=== PATIENT | female | born 1980 | race Caucasian/White ===

== ENCOUNTER 2023-09-20 15:00 | Outpatient (OUT) | payer OTHER, SELFPAY ==
[2023-09-20 15:58] LABS: Anion Gap 10.3; BUN Creatinine Ratio 16.9; Calcium 9.4 mg/dL (8.5-10.1); Carbon Dioxide 30.4 mmol/L (21.0-32.0); Chloride 102 mmol/L (98-107); Estimated GFR (African America >60 (>=60); Estimated GFR (Non-African Ame >60 (>=60); Glucose 111 mg/dL (74-106); Potassium 3.7 mmol/L (3.5-5.1); Sodium 139 mmol/L (136-145)
== END 2023-09-20 15:01 | disposition home or self-care (01) ==
LOC: LAB 15:07
PROVIDERS: Visit Provider Internal Medicine Cardiovascular Disease
DX: R06.02 Shortness of breath (principal); R60.0 Localized edema
CPT/HCPCS: 36415; 80048

== ENCOUNTER 2023-11-10 07:53 | Outpatient (OUT) | payer OTHER, SELFPAY ==
--- OUTSIDE RECORDS SUMMARY | 2023-11-10 07:57 | XMS_ITS | CCD ---
Author Organization [facility] Care Team Providers Care Glue Mounter Operator Name Role Phone CONI SERRANO Unavailable Unava ilable CALLIF-FONTANA, CARLITOS Unavailable Unavailable NO FAMILY DOCTOR Unavailable Unavailable RODDY POWELL Attending Unavailable RODDY POWELL Admitting Unavailable SELF, REFERRED Referring Unavailable SELF, REFERRED Primary Care Unavailable AICHHOLZ, OBSERVATION NURSE EMMIE Admitting Unavailable AICHHOLZ, OBSERVATION NURSE EMMIE Attending Unavailable AICHHOLZ, OBSERVATION NURSE EMMIE Primary Care Unavailable AICHHOLZ, OBSERVATION NURSE EMMIE Consulting Unavailable AICHHOLZ, OBSERVATION NURSE EMMIE Admitting Unavailable AICHHOLZ, OBSERVATION NURSE EMMIE Attending Unavailable AICHHOLZ, OBSERVATION NURSE EMMIE Primary Care Unavailable AICHHOLZ, OBSERVATION NURSE EMMIE Consulting Unavailable AICHHOLZ, OBSERVATION NURSE EMMIE Admitting Unavailable AICHHOLZ, OBSERVATION NURSE EMMIE Attending Unavailable AICHHOLZ, OBSERVATION NURSE EMMIE Primary Care Unavailable AICHHOLZ, OBSERVATION NURSE EMMIE Consulting Unavailable AICHHOLZ, OBSERVATION NURSE EMMIE Primary Care Unavailable KENDALL MOMIN Admitting Unavailable KENDALL MOMIN Attending Unavailable DR VLADISLAV ÁLVAREZ Consulting Unavailable KVNG ESPOSITO Attending Unavailable [facility] Primary Care Unavailable KVNG ESPOSITO Attending Unavailable [facility] Primary Care Unavailable Misbah Murray Attending Unavailable Misbah Murray Admitting Unavailable Provider, None Primary Care Unavailable Daria Elias K Attending Unavailable Daria Elias K Admitting Unavailable Provider, Unlisted Primary Care Unavailable Provider, None Primary Care Unavailable Jaime Saldaña Attending Unavailab Jaime Lea Admitting Unavailab le NO PCP, NO PCP Primary Care Unavailable SUSANNE STAPLETON Attending Unavailable [facility] Primary Care Unavailable [facility] Primary Care Unavailable BETI ECHAVARRIA Attending Unavailable Allergies Allergy Classification Reported Allergen(s) Allergy Type Date of Onset Reaction(s) Facility (2 sources) Aspartame; Translations: [Aspartame] Drug Allergy 10-03-19 14 [facility] Repository (3 sources) Aspirin; Translations: [aspirin] Drug Allergy 01-18-20 12 [facility] Repository (1 source) Azithromycin Drug Allergy 10-03-19 14 [facility] Repository (2 sources) cyclobenzaprine; Translations: [CYCLOBENZAPRINE] Drug Allergy 10-03-19 14 [facility] Repository (1 source) oxaprozin Drug Allergy 10-03-19 14 [facility] Repository (4 sources) Penicillins; Translations: [PENICILLINS] Drug allergy (disorder) 10-03-19 14 [facility] Repository (1 source) Saccharin Drug Allergy 10-03-19 14 [facility] Repository (2 sources) Sertraline Drug Allergy 10-03-19 14 [facility] Repository (1 source) Sulfamethoxazole / Trimethoprim Drug Allergy 10-03-19 14 [facility] Repository (2 sources) Sulfonamides (Antibiotic) Drug allergy (disorder) 10-03-19 14 [facility] Repository (1 source) Aspartame Drug Allergy 08-15-19 15 [facility] Repository (1 source) Aspirin Drug Allergy 08-15-19 15 [facility] Repository (1 source) Corticosteroids Drug allergy (disorder) 08-19-19 15 [facility] Repository (2 sources) gabapentin; Translations: [GABAPENTIN] Drug Allergy 10-31-19 15 [facility] Repository (1 source) Latex Drug allergy (disorder) 08-15-19 15 [facility] Repository (1 source) Saccharin Drug Allergy 08-12-19 15 [facility] Repository (1 source) traMADol; Translations: [traMADol] Drug Allergy [facility] Repository (2 sources) FLUoxetine; Translations: [FLUOXETINE] Drug Allergy 01-18-20 12 [facility] Repository (1 source) fluticasone; Translations: [FLUTICASONE] Drug Allergy 09-23-19 17 [facility] Repository (1 source) predniSONE; Translations: [PREDNISONE] Drug Allergy 11-17-19 17 [facility] Repository (2 sources) Sertraline; Translations: [SERTRALINE] Drug Allergy 01-18-20 12 [facility] Repository (1 source) Sulfamethoxazole / Trimethoprim; Translations: [SULFAMETHOXAZOLE-TR IMETHOPRIM] Drug Allergy 09-23-19 17 [facility] Repository (1 source) tiZANidine; Translations: [TIZANIDINE] Drug Allergy 10-20-19 19 [facility] Repository (1 source) ASPIRIN-SALICYLAMIDE -CAFFEINE; Translations: [ASPIRIN-SALICYLAMID E-CAFFEINE] Propensity to adverse reactions to drug (disorder) 09-23-19 17 [facility] Repository (1 source) ANTIBIOTIC HC; Translations: [ANTIBIOTIC HC] Propensity to adverse reactions to drug (disorder) 11-17-19 [facility] Repository (1 source) Sulfamethoxazole; Translations: [SULFAMETHOXAZOLE] Drug Allergy 01-18-20 12 [facility] Repository Problems Active Problems Problem Classification Problem Date Documented Da te Episodic/Chronic Diabetes mellitus without complication (1 source) Prediabetes; Translations: [PREDIABETES] Onset: 02-25-2022 Episodic Disorders of teeth and jaw (5 sources) Other specified disorders of teeth and supporting structures; Translations: [Periapical abscess without sinus] Onset: 05-23-2022 Episodic Inflammation; infection of eye (except that caused by tuberculosis or sexually transmitteddisease) (1 source) Hordeolum externum left eye, unspecified eyelid; Translations: [Hordeolum externum left eye, unspecified eyelid] Onset: 06-16-2023 Episodic Mood disorders (1 source) Bipolar disorder, unspecified; Translations: [BIPOLAR DISORDER UNSPECIFIED] Onset: 05-24-2022 Chronic Nonspecific chest pain (2 sources) Chest pain, unspecified; Translations: [Chest pain, unspecified] Onset: 09-20-2023 Episodic Other aftercare (5 sources) Other exterminator termite (current) drug therapy; Translations: [OTH SENIOR LIVING CURRENT DRUG THERAPY] Onset: 02-22-2022 Episodic Other aftercare (1 source) Encounter for other specified aftercare; Translations: [Encounter for other specified aftercare] Onset: 06-13-2023 Episodic Other connective tissue disease (1 source) Fibromyalgia; Translations: [Fibromyalgia] Onset: 09-01-2023 Episodic Other eye disorders (1 source) Other specified disorders of eye and adnexa; Translations: [Other specified disorders of eye and adnexa] Onset: 06-13-2023 Episodic Other lower respiratory disease (2 sources) Shortness of breath; Translations: [Shortness of breath] Onset: 09-20-2023 Episodic Other nervous system disorders (2 sources) Other chronic pain; Translations: [OTHER CHRONIC PAIN] Onset: 05-24-2022 Chronic Other nutritional; endocrine; and metabolic disorders (1 source) Morbid (severe) obesity due to excess calories; Translations: [MORBID SEVERE OBES D/T EXCESS BONITA] Onset: 05-24-2022 Chronic Other nutritional; endocrine; and metabolic disorders (1 source) Body mass index (BMI) 39.0-39.9, adult; Translations: [BODY MASS INDEX BMI 39.0-39.9 ADULT] Onset: 05-24-2022 Chronic Other upper respiratory infections (1 source) Acute upper respiratory infection, unspecified; Translations: [Acute upper respiratory infection, unspecified] Onset: 01-24-2023 Episodic Residual codes; unclassified (1 source) Edema, unspecified; Translations: [Edema, unspecified] Onset: 01-24-2023 Episodic Residual codes; unclassified (1 source) Pain, unspecified; Translations: [Pain, unspecified] Onset: 06-13-2023 Episodic Residual codes; unclassified (2 sources) Localized edema; Translations: [Localized edema] Onset: 09-20-2023 Episodic Spondylosis; intervertebral disc disorders; other back problems (2 sources) Lumbago with sciatica, left side; Translations: [Lumbago with sciatica, right side] Onset: 12-03-2022 Episodic Substance-related disorders (1 source) Nicotine dependence, cigarettes, uncomplicated; Translations: [NICOTINE DEPEND CIGARETTES UNCOMP] Onset: 05-24-2022 Chronic Unclassified (1 source) LOW BACK PAIN, UNSPECIFIED; Translations: [LOW BACK PAIN, UNSPECIFIED] Onset: 05-24-2022 Unclassified (1 source) Cold Like Symptoms Onset: 06-13-2023 Unclassified (1 source) Generalized Body Aches Onset: 06-13-2023 Unclassified (1 source) Body Aches; Vomiting Onset: 06-13-2023 Past or Other Problems Problem Classification Problem Date Documented Da te Episodic/Chronic Cancer of other female genital organs (2 sources) Personal history of malignant neoplasm of unspecified female genital organ; Translations: [Personal history of malignant neoplasm of unspecified female genital organ] Onset: 07-27-2017 Episodic Skin and subcutaneous tissue infections (8 sources) Cutaneous abscess of groin; Translations: [Cutaneous abscess, unspecified] Onset: 08-18-2021 Episodic Unclassified (4 sources) Family history of malignant neoplasm of breast; Translations: [Family history of malignant neoplasm of digestive organs] Onset: 07-27-2017 Episodic Results Test Name Value Interpretation Reference Range Facility Office Visiton 09-20-2023 Follow-up visit [id number] DanielTracey Bruner 1980 F Date Provider Department Center 09/20/2023 [id number] ECHAVARRIA [facility] No family history on file Level of Service:14613 HI OFFICE/OUTPATIENT NEW MODERATE MDM 45 MINUTES Normal [facility] C-Reactive Proteinon 024 CRP [Mass/Vol] 20.9 mg/L High 0.0-5.0 [facility] Comment on above: Performed By: #### C GORDO DOBBS, CP #### [facility] [address] [place] [address] Dr. [place] [id number] Engineer Byproduct: Henrique Schumacher MD CBC with Diffon 09-01-2023 Abs. Basophil 0.06 k/uL Normal 0.00-0.20 [facility] Comment on above: Performed By: #### C GORDO DOBBS CP #### [facility] [address] [place] [address] Dr. Zheng, [facility]83 Engineer Byproduct: Henrique Schumacher MD Abs.Imm.Granulocyte 0.03 k/uL Normal 0.00-0.30 [facility] Comment on above: Performed By: #### GORDO Espinoza RP, CP #### [address] [place] [phone] Engineer Byproduct: Henrique Schumacher MD Abs.Neutrophil (Seg) 6.65 k/uL Normal 1.50-8.10 [facility] Comment on above: Performed By: #### C GORDO DOBBS, CP #### [address] Zheng, [place] [address] Engineer Byproduct: Henrique Schumacher MD Basophils/100 WBC (Bld) 1 % Normal 0-2 [facility] Comment on above: Performed By: #### C RP, CDP, CP #### [address] Zheng, [facility]83 Engineer Byproduct: Henrique Schumacher MD Eosinophils (Bld) [#/Vol] 0.16 10*3/uL Normal 0.00-0.44 [facility] Comment on above: Performed By: #### C RP, CDP, CP #### [address] Zheng, [facility]83 Engineer Byproduct: Henrique Schumacher MD Eosinophils/100 WBC (Bld) 2 % Normal 1-4 [facility] Comment on above: Performed By: #### C RP, CDP, CP #### [address] Zheng, [facility]83 Engineer Byproduct: Henrique Schumacher MD Erythrocyte distribution width (RBC) [Ratio] 14.1 % Normal 11.8-14.4 [facility] Comment on above: Performed By: #### C RP, CDP, CP #### [address] Zheng, [facility]83 Engineer Byproduct: Henrique Schumacher MD Hematocrit (Bld) [Volume fraction] 45.3 % Normal 36.3-47.1 [facility] Comment on above: Performed By: #### C RP, CDP, CP #### [address] Zheng, [facility]83 Engineer Byproduct: Henrique Schumacher MD Hemoglobin (Bld) [Mass/Vol] 14.8 g/dL Normal 11.9-15.1 [facility] Comment on above: Performed By: #### C RP, CDP, CP #### [address] [place]heng, [place] [id number] Engineer Byproduct: Henrique Schumacher MD Immature granulocytes/100 WBC (Bld) 0 % Normal 0 [facility] Comment on above: Performed By: #### C RP, CDP, CP #### [address] Zheng, [facility]83 Engineer Byproduct: Henrique Schumacher MD Lymphocytes (Bld) [#/Vol] 1.98 10*3/uL Normal 1.10-3.70 [facility] Comment on above: Performed By: #### C RP, CDP, CP #### [address] Zheng, [place] [address] Engineer Byproduct: Henrique Schumacher MD Lymphocytes/100 WBC (Bld) 21 % Low 24-43 [facility] Comment on above: Performed By: #### C RP, CDP, CP #### [address] Zheng, [facility]83 Engineer Byproduct: Henrique Schumacher MD MCH (RBC) [Entitic mass] 30.6 pg Normal 25.2-33.5 [facility] Comment on above: Performed By: #### C RP CDP, CP #### [address] Zheng, [facility]83 Engineer Byproduct: Henrique Schumacher MD MCHC (RBC) [Mass/Vol] 32.7 g/dL Normal 28.4-34.8 [facility] Comment on above: Performed By: #### C RP, CDP, CP #### [address] [place], [place] [phone] Engineer Byproduct: Henrique Schumacher MD MCV (RBC) [Entitic vol] 93.8 fL Normal 82.6-102.9 [facility] Comment on above: Performed By: #### C RP, CDP, CP #### [address] [place], [place] [id number] Engineer Byproduct: Henrique Schumacher MD Monocytes (Bld) [#/Vol] 0.61 10*3/uL Normal 0.10-1.20 [facility] Comment on above: Performed By: #### C RP CDP, CP #### [facility] [address] [place] [address] Engineer Byproduct: Henrique Schumacher MD Monocytes/100 WBC (Bld) 6 % Normal 3-12 [facility] Comment on above: Performed By: #### C RP CDP, CP #### [facility] [address] [place] [address] Engineer Byproduct: Henrique Schumacher MD Neutrophil (Seg) 70 % High 36-65 [facility] Comment on above: Performed By: #### C RPGORDO, CP #### [facility] [address] [place] [address] Dr. Zheng, [facility]83 Engineer Byproduct: Henrique Schumacher MD NRBC Automated 0.0 per 100 WBC Normal 0.0 [facility] Comment on above: Performed By: #### C GORDO DOBBS, CP #### [address] [place] [address] Engineer Byproduct: Henrique Schumacher MD Platelet mean volume (Bld) [Entitic vol] 10.6 fL Normal 8.1-13.5 [facility] Comment on above: Performed By: #### C RPGORDO, CP #### [facility] [address] [place] [address] [place] [address] Engineer Byproduct: Henrique Schumacher MD Platelets (Bld) [#/Vol] 237 10*3/uL Normal 138-453 [facility] Comment on above: Performed By: #### C RP CDP, CP #### [address] [place] [address] Engineer Byproduct: Henrique Schumacher MD RBC (Bld) [#/Vol] 4.83 10*6/uL Normal 3.95-5.11 [facility] Comment on above: Performed By: #### C GORDO DOBBS, CP #### [facility] [address] [place], [place] [id number] Engineer Byproduct: Henrique Schumacher MD WBC (Bld) [#/Vol] 9.5 10*3/uL Normal 3.5-11.3 [facility] Comment on above: Performed By: #### C RP CDP, CP #### [facility] [address] [place], [place] [id number] Engineer Byproduct: Henrique Schumacher MD Comp Metabolic Profon 2023 Albumin [Mass/Vol] 3.8 g/dL Normal 3.5-5.2 [facility] Comment on above: Performed By: #### C GORDO DOBBS, CP #### [facility] [address] [place], [place] [id number] Engineer Byproduct: Henrique Schumacher MD Albumin/Glob Ratio 0.9 Low 1.0-2.5 [facility] Comment on above: Performed By: #### C GORDO DOBBS, CP #### [address] [place], [place] [id number] Engineer Byproduct: Henrique Schumacher MD Alkaline Phos 100 U/L Normal 35-104 [facility] Comment on above: Performed By: #### C GORDO DOBBS, CP #### [facility] [address] [place], [place] [phone] Engineer Byproduct: Henrique Schumacher MD ALT [Catalytic activity/Vol] 34 U/L High 5-33 [facility] Comment on above: Performed By: #### C GORDO DOBBS, CP #### [facility] [address] [place] [address] Engineer Byproduct: Henrique Schumacher MD Anion gap [Moles/Vol] 12 mmol/L Normal 9-17 [facility] Comment on above: Performed By: #### C RP, CDP, CP #### [facility] [address] [place], [place] [phone] Engineer Byproduct: Henrique Schumacher MD AST [Catalytic activity/Vol] 29 U/L Normal <32 [facility] Comment on above: Performed By: #### C RP, CDP, CP #### [facility] [address] [place] [address] Engineer Byproduct: Henrique Schumacher MD Bilirubin [Mass/Vol] 0.2 mg/dL Low 0.3-1.2 [facility] Comment on above: Performed By: #### C RP, CDP, CP #### [facility] [address] [place], [place] [phone] Engineer Byproduct: Henrique Schumacher MD BUN/CRE Ratio 18 Normal 9-20 [facility] Comment on above: Performed By: #### C RP, CDP, CP #### [facility] [address] [place] [address] Engineer Byproduct: Henrique Schumacher MD Calcium [Mass/Vol] 9.4 mg/dL Normal 8.6-10.4 [facility] Comment on above: Performed By: #### C RP, CDP, CP #### [address] [place] [address] Engineer Byproduct: Henrique Schumacher MD Chloride [Moles/Vol] 103 mmol/L Normal 98-107 [facility] Comment on above: Performed By: #### C RP, CDP, CP #### [facility] [address] [place] [address] Engineer Byproduct: Henrique Schumacher MD CO2 [Moles/Vol] 26 mmol/L Normal 20-31 [facility] Comment on above: Performed By: #### C RP, CDP, CP #### [facility] [address] [place] [address] Engineer Byproduct: Henrique Schumacher MD Creatinine [Mass/Vol] 0.6 mg/dL Normal 0.5-0.9 [facility] Comment on above: Performed By: #### C RPGORDO, CP #### [facility] [address] [place] [address] Engineer Byproduct: Henrique Schumacher MD GFR/1.73 sq M.predicted among non-blacks MDRD (S/P/Bld) [Vol rate/Area] mL/min/{1.73_m2} Normal >60 [facility] Comment on above: Result Comment: These results are not intended for use in patients <18 years of age. eGFR results are calculated without a race factor using the 2020 CKD-EPI equation. Careful clinical correlation is recommended, particularly when comparing to results calculated using previous equations. The CKD-EPI equation is less accurate in patients with extremes of muscle mass, extra-renal metabolism of creatine, excessive creatine ingestion, or following therapy that affects renal tubular secretion. Performed By: #### C RP CDP, CP #### [facility] [address] [place] [address] [place] [address] Engineer Byproduct: Henrique Schumacher MD Glucose [Mass/Vol] 195 mg/dL High 70-99 [facility] Comment on above: Performed By: #### C DILIA CDP, CP #### [address] [place] [address] Engineer Byproduct: Henrique Schumacher MD Potassium [Moles/Vol] 4.2 mmol/L Normal 3.7-5.3 [facility] Comment on above: Performed By: #### C RP CDP, CP #### [address] [place] [address] Engineer Byproduct: Henrique Schumacher MD Protein [Mass/Vol] 7.9 g/dL Normal 6.4-8.3 [facility] Comment on above: Performed By: #### C RP, CDP, CP #### [facility] [address] [place], [place] 1196983 Engineer Byproduct: Henrique Schumacher MD Sodium [Moles/Vol] 141 mmol/L Normal 135-144 [facility] Comment on above: Performed By: #### C GORDO DOBBS, CP #### [facility] [address] [place], [place] [id number] Engineer Byproduct: Henrique Schumacher MD Urea nitrogen [Mass/Vol] 11 mg/dL Normal 6-20 [facility] Comment on above: Performed By: #### C GORDO DOBBS, CP #### [facility] [address] [place], [place] 0100483 Engineer Byproduct: Henrique Schumacher MD UA w/Reflex Cultureon 2023 Bilirubin, SemiQt,Ur Negative Normal NEG [facility] Comment on above: Performed By: #### U OREN LIAOO #### [address] [place], [place] [phone] Engineer Byproduct: Henrique Schumacher MD Blood, Urine Negative Normal NEG [facility] Comment on above: Performed By: #### U OREN LIAOO #### [address] [place], [place] [phone] Engineer Byproduct: Henrique Schumacher MD Clarity (U) Clear Normal CLEAR [facility] Comment on above: Performed By: #### U AX UMICAO #### [facility] [address] [place] [address] Dr. [place], [place] [phone] Engineer Byproduct: Henrique Schumacher MD Color (U) Yellow Normal YEL [facility] Comment on above: Performed By: #### U AX UMICAO #### [facility] [address] [place], [place] [id number] Engineer Byproduct: Henriuqe Schumacher MD Glucose Ql (U) Negative Normal NEG [facility] Comment on above: Performed By: #### U AX UMICAO #### [facility] [address] [place], [place] [phone] Engineer Byproduct: Henrique Schumacher MD Ketones Ql (U) Negative Normal NEG [facility] Comment on above: Performed By: #### U AX, UMICAO #### [facility] [address] [place], [place] [phone] Engineer Byproduct: Henrique Schumacher MD Leukocyte esterase Test strip Ql (U) Negative Normal NEG [facility] Comment on above: Performed By: #### U AX, UMICAO #### [facility] [address] [place] [address] Dr. [place], [place] [phone] Engineer Byproduct: Henrique Schumacher MD Nitrite,Ur Negative Normal [facility] Comment on above: Performed By: #### U AX, UMICAO #### [facility] [address] [place] [address] Dr. Zheng, [facility]83 Engineer Byproduct: Henrique Schumacher MD PH,Ur 7.0 Normal 5.0-9.0 [facility] Comment on above: Performed By: #### U AX, UMICAO #### [facility] [address] [place] [address] Dr. [place], [place] [phone] Engineer Byproduct: Henrique Schumacher MD Protein Ql (U) TRACE Abnormal NEG [facility] Comment on above: Performed By: #### U AX, UMICAO #### [facility] [address] [place] [address] Dr. [place], [place] [phone] Engineer Byproduct: Henrique Schumacher MD Spec. Gill,Ur 1.025 High 1.010-1.020 [facility] Comment on above: Performed By: #### U AX, UMICAO #### [facility] [address] [place] [address] Dr. [place], [place] [phone] Engineer Byproduct: Henrique Schumacher MD Urobilinogen,Ur Normal Normal 0.0-1.0 [facility] Comment on above: Performed By: #### U AX, UMICAO #### [facility] [address] [place], [place] [phone] Engineer Byproduct: Henrique Schumacher MD Urinalysis,Microon 4 Bacteria 1+ Abnormal NONE [facility] Comment on above: Performed By: #### U AX, UMICAO #### [facility] [address] [place], [place] [phone] Engineer Byproduct: Henrique Schumacher MD Epithelial cells LM Ql (Urine sed) 0 TO 2 Normal 0-25 [facility] Comment on above: Performed By: #### U AX, UMICAO #### [facility] [address] [place], [place] [phone] Engineer Byproduct: Henrique Schumacher MD Mucus Strands 3+ Abnormal NONE [facility] Comment on above: Performed By: #### U AX, UMICAO #### [facility] [address] [place], [place] 8743283 Engineer Byproduct: Henrique Schumacher MD Urine RBC's 0 TO 2 Normal 0-2 [facility] Comment on above: Performed By: #### U AX, UMICAO #### [address] [place], [place] [phone] Engineer Byproduct: Henrique Schumacher MD Urine WBC's 0 TO 2 Normal 0-5 [facility] Comment on above: Performed By: #### U AX, UMICAO #### [facility] [address] [place] [address] Dr. Zheng, [place] [id number] Engineer Byproduct: Henrique Schumacher MD SARS/FLU A+B/RS[facility] SARS/FLU A+B/RSV by NAAT/Molecular FLU A PCR Negative (qualifier value) FLU B PCR Negative (qualifier value) RSV by PCR Negative (qualifier value) SARS CoV 2 Not detected (qualifier value) NOTE The Xpert Xpress SARS-CoV-2/Flu/RSV Plus test is a rapid, multiplexed real-time RT-PCR test intended for the simultaneous qualitative detection and differentiation of SARS-CoV-2, influenza A, influenza B and respiratory syncytial virus (RSV) viral RNA from individuals suspected of respiratory viral infection consistent with COVID-19 by their healthcare provider. This test has not been validated in asymptomatic patients. The Xpert Xpress SARS-CoV-2 test is intended for use by qualified and trained operators who are performing tests using either [employer] or [employer] systems and is limited to laboratories that meet the CLIA requirements to perform high and moderate complexity tests. The Xpert Xpress SARS-CoV-2/Flu/RSV Plus is only for use under the Food and Drug Administration's Emergency Use Authorization. Results are for the simultaneous detection and differentiation of SARS-CoV-2, influenza A, influenza B and RSV nucleic acids in clinical specimens. SARS-CoV-2, influenza A, influenza B and RSV RNA identified by this test are generally detectable in upper respiratory samples during the acute phase of infection. Positive results are indicative of the presence of the identified virus, but do not rule out bacterial infection or co-infection with other pathogens not detected by this test. Clinical correlation with patient history and other diagnostic information is necessary to determine patient infection status. The agent detected may not be the definite cause of disease. Negative results do not preclude SARS-CoV-2, influenza A, influenza B and RSV infection and should not be used as the sole basis for treatment or other patient management decisions. Negative results must be combined with clinical observations, patient history and epidemiological information. An Invalid result may occur with specimen-associated inhibition unable to be resolved with specimen repeat. Fact Sheet for Healthcare Providers: https://www.fda.gov/m edia/915201/download Fact Sheet for Patients: https://www.fda.gov/m edia/790534/download Normal [facility] Comment on above: Performed By: #### C OVFLR #### [facility] ([id number]) [address] [place] [address], [place] [address] Coding Summaryon 03-01-2023 Coding Summary HTMLBase 64 OtqrznpwGUd7eZf+PGhlY WQ+XI8TOUSgA08mlLHrlC 5aI7ABPVqJEbgcODVABYa OEeAokmYfJX0dsGTxYAZv IC8+JM2tLEFgStisoHRoq 4X5nOB3H25jcr8sPOkvvA N5DRBvNmYrbsllx1rkyEo 6IDcuNmluOyBt PVZmiY61TJZ2eD03Fq89g BNgfJKmk0nnhLl6HgVwDD EaIEP3gTikONwxl2XxTAC tN98mqSCmi2L3 PDOswNakeGSpSnCvtNG8k A5vFNvcywukn3rimfzkUm g9uq45yITik5X0mSH7T2Y gxnJ2KMYubPRo RunpxDMJnY5zmtkbw4szs vxqElXzBVGaHPx0VHw9QJ FqcKtsXfXlGT37ISK6OCK wmzRlA2IoORDu xUnwJvK3l4K3Nm5WH1ZQZ quaC2JLHQXWTXsjjIT+PC 16le12Y0WfIgfeSjg8DYA jCKN5dAJ2tV2r POTcTJzja6B9nHU8K2Nmw sZcbj5mn0cwIWQcURfpZ2 7gxHVxf3T3XZWobHA1FRJ zuVujCjWceS85 Oyc+ITMhfAcwz9YbQnmfa 2noh4wsqZm0IaqxRCRboc JgmOhdBCD9g1FaXz6cZGB aeFO8wNX3eQ2r YiKiLjD6ORxtD779IwXca POqHhmzA01aJ1IhqUF+PH NkGmi8GGOzcNgnGE0gB2K hZGRpbmctbGVm rQbnFF0jUNNtiizzKTFhl T7fVSJmM1z8AzCwHfD6ZW iuW1QsZUBivxwtHo00dZ0 pOoAoStL0ZBbj J6FnliG1AYHwzAAmVRmiR OG0O97ym7R1USJfABGiDO N7tGG4kJ8dpTlcndoysBT mdDsgdmVydGlj ZEccDIfhO074ROHvfTqyY kNvZGluZyBEYXRlOiAgMT AvMTEvMjAyMzwvdGQ+PHR hPQF2cZxqXLQz eENkEXefUv2vbBxxtOfkZ Y0cGEPgrwujFXWoyA0qDA PsvSAywVnfPR2uIUWlvxt da084AcGyBPL6 JKFwdFNlK9UcsZ4qKzUgK ETdUMNxF2MrlQRmFJzjU2 58LKnyLmI7SHAkxiDqN4U sLWFsaWduOiB0 l1M3Va5Sv2CcdlrzB8Znh CVlSbTkXxeiODy1G8UjSa wvdHI+GK75JWAyRP59CIe 9JLQ3rGryZBdt PJShZ3MtwR8uLjLvMUTpJ GRkOyc+PHRhYmxlIHdpZH RoPScxMDAlJyBzdHlsZT0 nZn7gAFPzDSRy tPapfGOmFaDfk3ewMXFhE JonFS5tqOhzE0OgnKN2DG Imq6p2Gu03P43dT2YwsKS +ILDmlHT7jYC0 oL7tNqGvIxC7HFulL495L eJxqIHtKjump0hlj3kpkZ f4VzV6CSKnajMfgLdaJGV 5u0SrMu61L52p IHdpZHRoPSIxNSUiIHZhb Zritx6ljU9ySl5+PGNvbC Y3eFY3zH9bAfNpZyS3BJi iI546KjJuqNPk Adepp0lrp4cijFc6JtPjO ZZjtxZyiUkfFRM9t2RbCe 54F0XnhStus2UrIwv0iy7 4iCRnp3Z9tYI2 E6BkBKKxcrwanTMofZgaV R3wDTNgazvgCPAewQ9eWE GcT1s0WoMyUiU6NConL8E nzmS7FEJgiCRq CAUrmBBXnL9xzpvgo8odl dfvSeUlGHBxHXn6PEd8PP OqlJwyDzNxIHT4JsK8VIV 8fRAdgZ3zlOnd xejvtM5xEds+GAK5jRWnu OTNIA7uQzzaoBW+PHRkIH T5fFsnCRppVTAtxD6cDBZ uF3a5VkLrWpS4 KDklD4DiriY8PCFfgABuM XOhgGIOtD8duabkk8ixpu rbIbPfCEMuJYp1JGr1ASP saWduOiBsZWZ0 SeY6FTO2mASbxO5oeJyer gzygS2jAcc+QmlydGggRG J4FHb1P8OeLwv7LOFqzAt aVR4bbFUdSAfe Fn0xuTtpfQquEM1gSWAed cuhs299VpKvd6jbEIUslS CiVMgjMCH4L40un7S6TYH oWSXeZNR4rUF3 jB8enBzzsrvtvQXirBgmz yGzsLsgARaeGKvlW283ZS XhoZjmOnAtIQr3D7UsIfx 5UVHcyBfdTR3i cSJuTKvkQc2amLqdwZyoY R5sFVWzotntg485WpPxd4 hbDLLfwTChRGkdRUU2S58 fv7L1LSBoRXBr QKD8xNC6uS4cnUbgtlosj GVmdDsgdmVydGljYWwtYW bxD057LTVbiEzlXtVqhAc 1V5AoEzt2SAEg wMzbOQ6uvESqLJfjMa7so FqdtDkyLP5wRTNipdtpy8 97JgOtu1slQXUurGLxKGm lOLN9G02hl1G0 CBOqHIOmWSP2wAB7jD7qo GlnbjogbGVmdDsgdmVydG cyCFfyCNmqG820IFCyjWe nPlBhdGllbnQg UMvdRJm3S9AgJsjctQS+P I06KLNrIK44iXPtcURmy2 pamUv1BoWeDQGlKCU3sBm dZPkwx4OeGUFc A12xoFXoi8V0RPEbfSbep BTiYgMepGY9yS4zXHwbwp qga5hjzhghPxloj3dvus3 4oD43C44qLWzt ZHRoPSIzMCUiIHZhbGlnb f3jlV9uBb0+KRVyoTC5iV E1tL8nSBRgIzX3NQnfQ38 9InRvcCIvPjxj l3wsb1mvgQa7ToU2IMSxg oToqBasKKL3e5KqAc74G4 9sIHdpZHRoPSIyMCUiIHZ nsAklrs6vfG9g Ii8+TCZdeDZ8oTX2vP9aK xFvQiT9AMuxU216DpCijQ AlRvmvO23sX1HhiMB+PHR eVtu7GWTnhZna WP9sgFIiNSymLg9iAQA2E vCaPxDpCKjkU3DgSFDgmi tlmddoxME1DUYeTJYzvP4 1Or6ieTvtYEBp nJNSxC2iyrxyu7yoawrtZ aXyLVHbSPh7BGa8GXWkpF mwUfMtJQF1SoJ0WFL7iBV gcQ9nfPmtncgh mF8qP0PpYTKtmscnPp34e L3bDlUxDaC1TVllRgw+UE CJP7MgXSKQYbYPRCn1R9A dNng9YEYzxGuf SY2rsKIqAKibXt6jfPlae WqvZF2pGZNkeihiESDuiL 0kWDHufGBbgVnqPS6vCUY gplbeb908VnHc ANN9OODmdNKvT8OrtZ8cT mAaVSNrQTYmQ4CukFOgHK ujK670ORfzVbH2FFXhtgV aW5AvSTHjrGnc LlK6u0J8Yl3mME1fFH9aQ XaxXO06DL34cYFju8U3gC H4Z2ZoJJEgatntbughuOT 6PUZrWAJdrY71 oCShPLstKf5nh1H0l960Y CRuNBWtuX64Jb1krPfyAK QxyCQCtS4czhcao0wkdvb gIzAwMDAwMDt0 VYu6DYZttJlzRgXvEMQ2A eS7DSX7gDQrjR5jlPeiew ivtQ6pIbh+NDMgWWVhcnM 2G9ApLkw7QJQt pGlcPB0hiFWnTTniFa2bo AwwfQteQR9lMGMmmnxhRB VauF5xMHQsxPNiyZrrIO3 qXELfptpps718 UhSeEYO5FTKkpGHcF9Tsv G5bIgSuJVNrQTXnS9UmqX LuBCazI115JRgnEwH9WUO zdaDwP5EtRUNw iWpoLiE4d7R1Iz2FLD2ZY IX5C2WyNef2JDKiuSvhVK 5wtZAjDWtyKb9fzIaheEm cOE1tOIYudlki FLOskD3tBTEblAJgxXnvW S6vIGTigrhdm021QsUdCW U4WGUnfJWaT6EswD8hZlA wNPSsNPTxV2Xv lTTmKEdoJ366FExdVdU0P QTsjvViH6QuVKKmuSuqTd K9s4T8Jt1IbEYbQ4UqI3c 4K2JrVsyusKH+ HY59NZQeHT12lQWimEKax 8jagZe6UcUuITMhSXL0wK rzBPseu3FrVZTaL92knZM xn7I3HRGkaZug lVLeWqAbqYD5qF5lMBjuc wtsk9ugjqyuRcrdb5tarl 82dC55J19vFLliBZWrCKV zMCUiIHZhbGln wx9reP8pMb0+QDVoiOU8x BI1nY0kRuFbFlS2HJqcI0 83TwOwyHWaUwgcn3jkm9t mhVk3YyNtZBXd wzGrdRjeQUM0a9MgTo40D 29sIHdpZHRoPSIyMCUiIH PngDbdpa0liB3mGr5+PC9 pw2dluj63jP37 dHI+RMXwGIL6fHqgPYzyW YNcuT9xTIlhJmO8HYPsVx RnzF23pWTeSJznPp3tnMy vgGohNP4nTNBd gepfs898KtIvn0nqQDMjw JKkJYawECD3K20wu5C4ZE OmNGCvYUG9tSO3kZ1tlEr nbjogbGVmdDsg xpGkuWfsQJssWZzwZ815X BObbExtFaCnjTEvG5ixrl XRBX5jEjzitOQ+PHRkIHN 0eWxlPSdwYWRk jC8hENNdN6k7FhMfWoB5R HkwR2PlaqR1XXZatDNoBB SnwEDGyH7ggxrad4gedls gIzAwMDAwMDt0 CYj7BWFhzUluDrRwGVS7B dW9LBV0wBVfdT5sbJplfa oufH7sVlq+RklOOjwvdGQ +JFVbQJK8rSnx CRjxZHBfpR5kIBZhS1h4C pImVwX7BTygK5XouoO9QU MlaSDaLPWmiYLZpK9gzzt au8oxfqysDuEp EQKkUPr6HIm9WEKviCywU wHdYVN4SjJ9HEM0iGTooX 8avSzuztcdeG2dLqq+TVJ OOjwvdGQ+PHRk HDD2dXfkSFjtGMXfxJ2uC LWaV6t0RtOqZnN7QWznZ1 PkurO0LJQdvXOyXDYovDG BpV6ilkvan1bl tsxmFtKhXWCuCRw1MNb2Y TCjiIysJgFcSIF4GwK8FK Z0bDHddR6xrRuqktleqG7 wOyc+VJM9UMM8 UJ64JB55I8JkKflbcZZix +PHRhYmxlIHdpZHRoPS pbXSNlBxVgsFbjYW1rBe8 yZGVyLWNvbGxh N (more content not included)... [facility] ED Clinical Summaryon 2022 ED Clinical Summary [facility] - Emergency Department [address] [place] [id number] ED Clinical Summary PERSON INFORMATION Name: TRACEY LARA Age: 43 Years Sex: FEMALE : 1980 MRN: Acct#: Visit Reason: Wound evaluation; BOIL- NAUSEA, CHILLS Arrival: 02/22/2023 07:53:52 Discharge: 02/22/2023 09:14:00 LOS: 000 01:21 Check In: 02/22/2023 07:53:52 Checkout:02/22/2023 09:14:00 Address: [address] [place] [id number] PCP: Provider, Unlisted PROVIDER INFORMATION Provider Role Assigned Unassigned Jorge Pulliam QC CHEMIST Nurse 02/22/2023 08:26:14 Boy Martins MD ED Provider 02/22/2023 08:52:00 VITALS INFORMATION Vital Sign Triage Latest Temperature Tympanic Temperature Temporal Artery Pulse Rate 90 bpm 90 bpm O2 Sat 100 % 100 % Respiratory Rate 18 br/min 18 br/min Blood Pressure /120 mmHg /120 mmHg MEDICAL INFORMATION Medications Given: Medication Dose Route ciprofloxacin 500 mg PO Allergy Information: Aspartame; traMADol; aspirin PHYSICIAN DOCUMENTATION DISCHARGE INFORMATION: Discharge Disposition: Home Discharge Location: PATIENT EDUCATION INFORMATION Instructions: Anorectal Abscess; Hypertension, Adult, Vbvl-ad-Lhgc Follow-Up: With: Address: When: Zander John MD [address] [place] [id number] Within 1 to 2 weeks DIAGNOSIS: 1:Perirectal abscess; 2:Elevated blood pressure reading Patient Understands: Yes - Patient/family/caregi sanjana verbalizes understanding of instructions given Comment: [facility] ED Note-Nursingon 02-22-2023 ED Note-Nursing arrival via private vehicle with c/o butt boil wound noticed six days ago with chills yesterday. lcta. gown provided. oriented to call light. vss. Normal [facility] ED Patient Summaryon 023 ED Patient Summary [facility] - Emergency Department [address] [place] [id number] PATIENT DISCHARGE INSTRUCTIONS Patient Information Name: TRACEY LARA Age: 43 Years Date of : 1980 Reason For Visit: Wound evaluation; BOIL- NAUSEA, CHILLS Arrival Time: 02/22/2023 07:53:52 Primary Care Physician: Provider, Unlisted Attending Physician: Misbah Murray DO Comment: Visit Diagnosis: Diagnoses This Visit Elevated blood pressure reading (R03.0) Perirectal abscess (K61.1) Wound evaluation ([id number] eg) The Pharmacy at [facility] is open Monday through Monday from 9A to 6P and Monday and Monday from 9A to 5P Prescription Information: If you have been given a prescription for narcotics, seek immediate medical attention if you have any difficulty breathing or any sudden status changes such as confusion and sleepiness. If you or anyone you know is experiencing suicidal thoughts, mental health, alcohol and/or drug addiction problems; contact the Mental Health & Recovery Board [facility] 12/12 Crisis Hotline -Text 8GJOV uc 991112. If you received any narcotics, sedation, or any other medication that causes drowsiness for the next 24 hours, unless otherwise directed: ? Do not drive a car. ? Do not operate machinery such as power tools, lawn mowers, drills, sewing machines, or stoves ? Avoid alcoholic beverages and drugs for allergies, nerves, or sleep ? Do not make important personal or business decisions or sign any legal documents With: Address: When: Zander John MD [address] [place] [id number] Within 1 to 2 weeks Medication Information: The exam and treatment you received today in the [facility] Emergency Department were for an urgent problem and are not intended as complete care. It is important for you to follow up with a doctor, nurse practitioner, or physician?s dietetic assistant for ongoing care. If your symptoms become worse or you do not improve as expected and you are unable to reach your usual health care provider, you should return to the Emergency Department, we are available 24 hours a day. For those patients who have received Radiology results, the interpretation of your X-ray as given to you by our Emergency Department physician is only a preliminary report. The Radiologist will review your films and if there is a change in the diagnosis you will be notified by phone. Please make sure you have provided a working phone number so we can reach you if necessary. In the event that you had a lab culture while you were a patient in the Emergency Department, you will be notified by phone if there is a need to change your antibiotic. Please make sure you have provided a working phone number so we can reach you if necessary. [facility] Emergency Department has provided you with a complete list of medications post discharge. Please inform your physician assistant primary care/provider of your visit and for further instruction on these medications. Any specific questions regarding your chronic medications and dosages should be discussed with your primary care physician(s) and/or pharmacist. New Medications [id number], [address] [place], [place] [id number], [phone] ciprofloxacin (Cipro 500 mg oral tablet) 1 tab(s) Oral Every 12 hours scheduled time for 14 Days. Refills: 0. Additional medications on your home medication list not specifically addressed. Please contact the ordering physician if you have questions about these medications. cyclobenzaprine (cyclobenzaprine 10 mg oral tablet) 1 tab(s) Oral 3 times a day as needed muscle pain. take 1 tablet by mouth three times a day if needed for muscle spasm. furosemide (furosemide 20 mg oral tablet) take 1 tablet by mouth once daily if needed for SEVERE LOWER LEG SWELLING. hydrocortisone topical (hydrocortisone 1% topical cream) ketorolac (ketorolac 10 mg oral tablet) 1 tab(s) Oral 4 times a day. take 1 tablet by mouth every 6 hours if needed for pain for 3 days. methylPREDNISolone (MethylPREDNISolone Dose Pack 4 mg oral tablet) pantoprazole (pantoprazole 40 mg oral delayed release tablet) 1 tab(s) Oral every day. take 1 tablet by mouth every morning BEFORE BREAKFAST. triamcinolone topical (triamcinolone 0.1% topical cream) Visit Information Allergies: Substance Reaction Symptoms Type Comments aspirin Drug traMADol Drug Aspartame Food Vital Signs: Vitals and Measurements this Visit (last charted value for your 02/22/2023 visit) Vital Signs This Visit Temperature Oral: 36.8 DegC Peripheral Pulse Rate: 90 bpm Respiratory Rate: 18 br/min Systolic Blood Pressure: 160 mmHg Diastolic Blood Pressure: 120 mmHg SpO2: 100 % Oxygen Therapy: Room air Measurements This Visit Height/Length Dosin.000 cm Height/Length Estimated: 182.000 cm Weight Dosin.000 kg Weight Estimated: 161.000 kg Problems List: (more content not included)... Normal [facility] Basic Metabolic Profon 01-24 Anion gap [Moles/Vol] 7 mmol/L Low -17 [facility] Comment on above: Performed By: #### F T4, BNP, ECENZ, BMP, TSH, CDP #### [facility] [address] [place] [address] Engineer Byproduct: Gera Mckinley DO Calcium [Mass/Vol] 8.8 mg/dL Normal 8.6-10.4 [facility] Comment on above: Performed By: #### F T4, BNP, ECENZ, BMP, TSH, CDP #### [facility] [address] [place] [address] Engineer Byproduct: Gera Mckinley DO Chloride [Moles/Vol] 104 mmol/L Normal 98-107 [facility] Comment on above: Performed By: #### F T4, BNP, ECENZ, BMP, TSH, CDP #### [facility] [address] [place] [address] Engineer Byproduct: Gera Mckinley DO CO2 [Moles/Vol] 28 mmol/L Normal 20-31 [facility] Comment on above: Performed By: #### F T4, BNP, ECENZ, BMP, TSH, CDP #### [facility] [address] [place] [address] Engineer Byproduct: Gera Mckinley DO Creatinine [Mass/Vol] 0.5 mg/dL Normal 0.5-0.9 [facility] Comment on above: Performed By: #### F T4, BNP, ECENZ, BMP, TSH, CDP #### [facility] [address] [facility] [place] [address] Engineer Byproduct: Gera Mckinley DO GFR/1.73 sq M.predicted among non-blacks MDRD (S/P/Bld) [Vol rate/Area] mL/min/{1.73_m2} Normal >60 [facility] Comment on above: Result Comment: These results are not intended for use in patients <18 years of age. eGFR results are calculated without a race factor using the 2020 CKD-EPI equation. Careful clinical correlation is recommended, particularly when comparing to results calculated using previous equations. The CKD-EPI equation is less accurate in patients with extremes of muscle mass, extra-renal metabolism of creatine, excessive creatine ingestion, or following therapy that affects renal tubular secretion. Performed By: #### F T4, BNP, ECENZ, BMP, TSH, CDP #### [facility] [address] [facility] [place] [address] Engineer Byproduct: Gera Mckinley DO Glucose [Mass/Vol] 111 mg/dL High 70-99 [facility] Comment on above: Performed By: #### F T4, BNP, ECENZ, BMP, TSH, CDP #### [facility] [address] [facility] [place] [address] Engineer Byproduct: Gera Mckinley DO Potassium [Moles/Vol] 4.0 mmol/L Normal 3.7-5.3 [facility] Comment on above: Performed By: #### F T4, BNP, ECENZ, BMP, TSH, CDP #### [facility] [address] [facility] [place] [address] Engineer Byproduct: Gera Mckinley DO Sodium [Moles/Vol] 139 mmol/L Normal 135-144 [facility] Comment on above: Performed By: #### F T4, BNP, ECENZ, BMP, TSH, CDP #### [facility] [address] [facility] [place] [address] Engineer Byproduct: Gera Mckinley DO Urea nitrogen [Mass/Vol] 12 mg/dL Normal 6-20 [facility] Comment on above: Performed By: #### F T4, BNP, ECENZ, BMP, TSH, CDP #### [facility] [address] [place] [address] Engineer Byproduct: Gera Mckinley DO Brain Natri. Peptideon 01-24 Natriuretic peptide B (Bld) [Mass/Vol] 93 pg/mL Normal <300 [facility] Comment on above: Result Comment: An age-independent cutoff point of 300 pg/ml has a 98% negative predictive value excluding acute heart failure. Performed By: #### F T4, BNP, ECENZ, BMP, TSH, CDP #### [facility] [address] [facility] [place] [address] Engineer Byproduct: Gera Mckinley DO CBC with Diffon 01-24-2023 Abs. Basophil 0.10 k/uL Normal 0.0-0.2 [facility] Comment on above: Performed By: #### F T4, BNP, ECENZ, BMP, TSH, CDP #### [facility] [facility] [address] Engineer Byproduct: Gera Mckinley DO Abs.Neutrophil (Seg) 3.90 k/uL Normal 1.3-9.1 [facility] Comment on above: Performed By: #### F T4, BNP, ECENZ, BMP, TSH, CDP #### [facility] [place] [address] Engineer Byproduct: Gera Mckinley DO Basophils/100 WBC (Bld) 1 % Normal 0-2 [facility] Comment on above: Performed By: #### F T4, BNP, ECENZ, BMP, TSH, CDP #### [facility] [address] [place] [address] Engineer Byproduct: Gera Mckinley DO Eosinophils (Bld) [#/Vol] 0.20 10*3/uL Normal 0.0-0.4 [facility] Comment on above: Performed By: #### F T4, BNP, ECENZ, BMP, TSH, CDP #### [facility] [address] [place] [address] Engineer Byproduct: Gera Mckinley DO Eosinophils/100 WBC (Bld) 3 % Normal 0-4 [facility] Comment on above: Performed By: #### F T4, BNP, ECENZ, BMP, TSH, CDP #### [facility] [address] [place] [address] Engineer Byproduct: Gera Mckinley DO Erythrocyte distribution width (RBC) [Ratio] 14.7 % Normal 11.5-14.9 [facility] Comment on above: Performed By: #### F T4, BNP, ECENZ, BMP, TSH, CDP #### [facility] [place] [address] Engineer Byproduct: Gera Mckinley DO Hematocrit (Bld) [Volume fraction] 41.3 % Normal 36-46 [facility] Comment on above: Performed By: #### F T4, BNP, ECENZ, BMP, TSH, CDP #### [facility] [place] [address] Engineer Byproduct: Gera Mckinley DO Hemoglobin (Bld) [Mass/Vol] 13.7 g/dL Normal 12.0-16.0 [facility] Comment on above: Performed By: #### F T4, BNP, ECENZ, BMP, TSH, CDP #### [facility] [place] [address] Engineer Byproduct: Gera Mckinley DO Lymphocytes (Bld) [#/Vol] 1.60 10*3/uL Normal 1.0-4.8 [facility] Comment on above: Performed By: #### F T4, BNP, ECENZ, BMP, TSH, CDP #### [facility] [address] [place] [address] Engineer Byproduct: Gera Mckinley DO Lymphocytes/100 WBC (Bld) 25 % Normal 24-44 [facility] Comment on above: Performed By: #### F T4, BNP, ECENZ, BMP, TSH, CDP #### [facility] [address] [place] [address] Engineer Byproduct: Gera Mckinley DO MCH (RBC) [Entitic mass] 31.1 pg Normal 26-34 [facility] Comment on above: Performed By: #### F T4, BNP, ECENZ, BMP, TSH, CDP #### [facility] [address] [place] [address] Engineer Byproduct: Gera Mckinley DO MCHC (RBC) [Mass/Vol] 33.1 g/dL Normal 31-37 [facility] Comment on above: Performed By: #### F T4, BNP, ECENZ, BMP, TSH, CDP #### [facility] [place] [address] Engineer Byproduct: Gera Mckinley DO MCV (RBC) [Entitic vol] 94.1 fL Normal 80-100 [facility] Comment on above: Performed By: #### F T4, BNP, ECENZ, BMP, TSH, CDP #### [facility] [address] [place] [address] Engineer Byproduct: Gera Mckinley DO Monocytes (Bld) [#/Vol] 0.60 10*3/uL Normal 0.1-1.3 [facility] Comment on above: Performed By: #### F T4, BNP, ECENZ, BMP, TSH, CDP #### [facility] [address] [place] [address] Engineer Byproduct: Gera Mckinley DO Monocytes/100 WBC (Bld) 9 % High 1-7 [facility] Comment on above: Performed By: #### F T4, BNP, ECENZ, BMP, TSH, CDP #### [facility] [address] [place] [address] Engineer Byproduct: Gera Mckinley DO Neutrophil (Seg) 62 % Normal 36-[address] [facility] Comment on above: Performed By: #### F T4, BNP, ECENZ, BMP, TSH, CDP #### [facility] [facility] [place] [address] Engineer Byproduct: Gera Mckinley DO Platelet mean volume (Bld) [Entitic vol] 8.5 fL Normal 6.0-12.0 [facility] Comment on above: Performed By: #### F T4, BNP, ECENZ, BMP, TSH, CDP #### [facility] [address] [facility] [place] [address] Engineer Byproduct: Gera Mckinley DO Platelets (Bld) [#/Vol] 219 10*3/uL Normal 150-450 [facility] Comment on above: Performed By: #### F T4, BNP, ECENZ, BMP, TSH, CDP #### [facility] [address] [facility] [place] [address] Engineer Byproduct: Gera Mckinley DO RBC (Bld) [#/Vol] 4.39 10*6/uL Normal 4.0-5.2 [facility] Comment on above: Performed By: #### F T4, BNP, ECENZ, BMP, TSH, CDP #### [facility] [place] [address] Engineer Byproduct: Gera Mckinley DO WBC (Bld) [#/Vol] 6.4 10*3/uL Normal 3.5-11.0 [facility] Comment on above: Performed By: #### F T4, BNP, ECENZ, BMP, TSH, CDP #### [facility] [address] [place] [address]. [place] [address] Engineer Byproduct: Gera Mckinley DO SARS-CoV-2 + Flu A/Bon 01-24 Influenza A, RT-PCR Not detected Normal [facility] Comment on above: Performed By: #### C VFLU #### [facility] [address] [place] [address]. [place] [address] Engineer Byproduct: Gera Mckinley DO Influenza B, RT-PCR Not detected Normal [facility] [facility] Comment on above: Performed By: #### C VFLU #### [facility] [address] [place] [address]. [place] [address] Engineer Byproduct: Gera Mckinley DO SARS-CoV-2 (COVID-19) RNA JOCELYN+probe Ql (Unsp spec) Not detected Normal [facility] Comment on above: Result Comment: Testing was performed using RENE Chante SARS-CoV-2 and Influenza A/B nucleic acid assay. This test is a multiplex Real-Time Reverse Transcriptase Polymerase Chain Reaction (RT-PCR)-based in vitro diagnostic test intended for the qualitative detection of nucleic acids from SARS-CoV-2, influenza A, and influenza B in nasopharyngeal and nasal swab specimens for use under the FDA's Emergency Use Authorization (EUA) only. Not Detected results do not preclude SARS-CoV-2 infection and should not be used as the sole basis for patient management decisions. Negative results must be combined with clinical observations, patient history, and epidemiological information. Fact sheet for Patients: https://www.fda.gov/media/987392/download Fact sheet for Healthcare Providers: https://www.fda.gov/media/248646/download Results reported to the appropriate Health Department Performed By: #### C VFLU #### [facility] [address] [place] [address] Engineer Byproduct: Gera Mckinley DO Source .NASOPHARYNGEAL SWAB Normal [facility] Comment on above: Performed By: #### C VFLU #### [facility] [place] [address] Engineer Byproduct: Gera Mckinley DO Strep Group A, Rapidon 01-24 Strep A, Molecular Negative Normal [facility] Comment on above: Performed By: #### R SAB #### [facility] [address] [place] [address] Engineer Byproduct: Gera Mckinley DO Source .THROAT SWAB Normal [facility] Comment on above: Performed By: #### R SAB #### [facility] [place] [address] Engineer Byproduct: Gera Mckinley DO Thyroid Stim. Horm.on 2022 Thyroid Stim. Horm. 0.67 uIU/mL Normal 0.30-5.00 [facility] Comment on above: Performed By: #### F T4, BNP, ECENZ, BMP, TSH, CDP #### [facility] [place] [address] Engineer Byproduct: Gera Mckinley DO Thyroxine, Freeon 01-24-2023 Thyroxine, Free 1.1 ng/dL Normal 0.9-1.7 [facility] Comment on above: Performed By: #### F T4, BNP, ECENZ, BMP, TSH, CDP #### [facility] [address] [place] [address] Engineer Byproduct: Gera Mckinley DO Trop/Myoglobinon 01-24-2023 Myoglobin [Mass/Vol] 35 ng/mL Normal 25-58 [facility] Comment on above: Performed By: #### F T4, BNP, ECENZ, BMP, TSH, CDP #### [facility] [address] [place] [address] Engineer Byproduct: Gera Mckinley DO Troponin, High Sens 7 ng/L Normal 0-14 [facility] Comment on above: Result Comment: High Sensitivity Troponin values cannot be compared with other Troponin methodologies. Performed By: #### F T4, BNP, ECENZ, BMP, TSH, CDP #### [facility] [address] [facility] [place] [address] Engineer Byproduct: Gera Mckinley DO XR CHEST PORTABLEon 01-25-20 XR CHEST PORTABLE EXAMINATION: ONE XRAY VIEW OF THE CHEST 01/24/2023 10:08 am COMPARISON: None. HISTORY: ORDERING SYSTEM PROVIDED HISTORY: Chest Pain TECHNOLOGIST PROVIDED HISTORY: Chest Pain Reason for Exam: Middle chest pains FINDINGS: No lines or tubes. Normal cardiomediastinal silhouette. The lungs are clear without focal consolidation or pleural effusion. No suspicious pulmonary nodules. No pulmonary edema. No pneumothorax. No acute osseous abnormality. IMPRESSION: No acute cardiopulmonary disease. Interpreted by: Rachele Hoover MD Signed by: Rachele Hoover MD 01/24/23 Final result Normal [facility] Coding Summaryon 12-15-2022 Coding Summary HTMLBase 64 ZqmkfoyrTOu4xSz+PGhlY WQ+GC9YBWXqX34fjDNidC 1lR4MELFbYWfzjBNRODOe HQqMbqeRwTT2oyWInWGZh IC8+RZ2rNXIaFvvjyIYpv 2Y4yCH5Z72lez5zDTihoV C7VOZmZiLoepeyi6atrDc 6IDcuNmluOyBt SBPvkR81ODE8mJ83Jh00c HKyuTAnu9lluRb3ChSpFX LkDMJ8yLuqXWhqy3BpLIQ aA75yyVUhc0A2 QPPpkJrtjMOkIfYcjYB6r V7pKQaavjtem6tzcmoxOi q4oi47kANvz8E2rCG0W7T ylzW7UZDfmCMr FlaybCWCxS3fedrnz7ldb xgyRtJtUZPlIRb3QVn9KW QxnGkuIeOnIO95RXA6SZG wzbZvC5GxSWOi jUvdXdH0s2M7Qm7DX7JZA mhiM9NDRMFPSLgsrUL+PC 08do53A6PbVnuzJfj9MQT nHIE2dPF6sU7c QUDnOMzdd0E9oQZ1D3Wdv jYddx6cq5gfGJVdIFivN9 1zgYLdk8Z8NKKhnND5WMR ynBobXtGhtZ74 Oyc+ZUTekVjvq1JyXdpan 3bdq0tpjWu1VnxoCABwgr NweQziTJX6t4KhHa5yWEL rlBP3rJL6uS8f SqSvDsW1IEieG964BuMvt ZCtOuveO26iR5UviUK+PH LqJsk5YBBxiWbxXU6uC8G hZGRpbmctbGVm mJcbYI3jCHMzuheyDYCto N3kSLPvY2t3KhNaMuX6CJ exF2ZdNFSxelvaGc80xY8 tAiSpBaN5UYtq L0MyupR5TEUduUZtRXnyG CO5T11kt5N3DIVsAFQvAL G5oKW9lN3hgNfxqphprRV mdDsgdmVydGlj EGwmZHrtX736QDDqrBsdJ kNvZGluZyBEYXRlOiAgMD cvMjcvMjAyMzwvdGQ+PHR rYCW2jWolMSEu kRSxWLnuDs6lhZkpqToeP X3bMTNmhcjdHSLllR1gNO RwnFQlqLtsQR9xTXOgajh mg548OgWsJKZ9 SSPviQLhO2OmuI0tRzFtL EViIJInL0FpaFRsWFakO1 84ZOkaHnF7OEVpuaLtT6D sLWFsaWduOiB0 g0P7Eb9Fv4EppwyjB5Wfk ROlRnDmPxyyWFq5S4OfCa wvdHI+LF65XMHrXY93JUf 2QCO2dGswWAnn PGQuJ4ZboP3yRsYiRFCpX GRkOyc+PHRhYmxlIHdpZH RoPScxMDAlJyBzdHlsZT0 iNg6aPXDtDMHr dLdluXLuFzVbt6gpVFBfX FlrEY4ovXwwT2PyuRG1GS Zxe1t6Zi84Z91jY1EbhTI +RRBwrDW8gBI5 uD1oBsPtRdB1VWqdF505W tOabMLdSaopv6mdw3bonS l1EwK4CAPmroJfbXljDXM 6s8DnLj57X29o IHdpZHRoPSIxNSUiIHZhb Xrffq6yjI9sJz2+PGNvbC K6zWK8hE7mUnEqQoV4RPc wY987AeIggTNa Mixgt5czb7efaMv4HwEfY IKgaxLdrUcjLOA1n2KsPy 47Q4IovRaiy2PzQyu1xx1 5oWIbs9C7gGA7 G4VmXZShnqcjyBUbaHbfB F8zCGEhfqncJSThhI4dPW FxZ1q5WgSnJkX5QDmnK3Z rsiK5YWLfgGHh TJZazOLLfO6hikloz6szr vikTzMyKMLfUIp7MFb1EB UcpNohPyNhGTY5AuC6PXH 7nXOjgX1yaDfb tmvymG3rPei+KJG8lEDhr VLKKD6rMhcjsTS+PHRkIH T0mEojAZnyHFDlnK2cPOK eC4d6VfBcCkY6 MGqzC4BdkcA3LKMwsRUxJ DCvgVJInG6jpdvpx0ecfw rtEqWdWUKyEQu9DRh9TAP saWduOiBsZWZ0 ZkD3QXS2pWJgaV1zrUufh iytnP4eMsb+QmlydGggRG P1WHg8F4QzDep7BSLtqCs mOZ9uoAEkGEfl Bc9byFmkjWdhZT7zYRFny hjut056JxJbp0okJYDuvK SwPNafQBR6I35lz7Y6DSD mJSNcTFJ8dIY8 iG5hbOzmxbnncFHxmXzcy tRqwUpxHXyxEPleK568ZC UovQifXaJuGTz4B8UxEeb 9IURshXuaND6f bCAhGKwrUz5loBzyrYxyU A5kJAZkjjvre514GdKit8 emZOEejTZfPLgbDET8H70 nq9Z6MPTrDDFs AWL0rEV7fF3lqShzvjidn GVmdDsgdmVydGljYWwtYW eaF316OEGxlLybVwCaoVk 7P6WnGaf9ZYZr lBnnYX0ibQVrHHqjEg3lt JpcsUzwEN8gQXPszrsjw2 06YiAhn3jgRNDqvIDjAGk vIER1U69el1Z7 EBZkAHBhSFD9kKA7oE0ss GlnbjogbGVmdDsgdmVydG dfWQycTVruT022QLIfpGs nPlBhdGllbnQg TSxxEXn2T9HmXhbblCD+P H20FBUqSJ35fZNuvSTkv0 rxoIg2CzGbLCDlDKG9eBn uVEwsg2GgULVm B33haCTfn6B8ZPJrfIeju YCwCnCtjOV5fC8eUHmxnn msd9hffylgUjdlz2cppq1 9tJ93V03rXObn ZHRoPSIzMCUiIHZhbGlnb a6hwD2wSf2+GQMbuBG7nC E4tS6rJGAzBlQ2BZdnZ54 9InRvcCIvPjxj s6fma9fntUm1BxT3DFDcm wSwwUscHAG0w8DrHe08Q4 9sIHdpZHRoPSIyMCUiIHZ pxTtwsa6zoG1h Ii8+SVFvlPV7tLN2kD0yF hSfSaA5DDhvV545MuVniA GaCstrU34vU5QieUY+PHR vTtk7NZWtkPsl NK9naNWgLZvgMd6pBGF4T dRhIoPgHFowP6IjYGAzsk vnlmhmlDK1QXGjMWUdcK6 1In9keBefHUHm mXWWbT2zpigwh0ngwxceR bRnZDCgUGk6ZAa9QEMnqG hrOzObMXO9GcA0MLL1oAR ueK5qyCclimyf iZ2hJ1NqRVPsgjedQb31p E7gXwLkCoD4KGdwEot+UE YPS7VoPKNBYdIWXEa8V4W yCrw2SBEnhOjr FH8cmSMbTKxrEp7oiUfgg VxhMQ4pAEBkrjtxCSCimE 7fCBOveVPphWklVQ6cCXZ kduzfa393FpLg HHK3VFFxkYSsJ9HvfA1yR lOoKQZwONXuH7ZbyZJaLW hcR554UTjzBsN4QTBzgoA nB2ZxVLXuaDbr TjQ9m5E5At5fER2eJY5pE EetIS27AI67nIUjy9F0lH R6U6BvRNVsvcxkvrasdHI 7RXFvNYXjhZ04 kGJzWNdjWy0ng9J1m525Q OYtPEHkxU20Fo8nbScvLY LhcKCXvT3zevrap8vealg gIzAwMDAwMDt0 XGf7XMAfbHhqVaQmKWE0V kN0BUJ2kBIypR3rsEhtua mmmA1kByt+NDIgWWVhcnM 9K7TrQax2WDQj lNmxXJ2qoOCvEEpySg1ku IrkaEdmGW7hVYDnleoxEG UsiN1zVNZswLHmrUxjNQ2 eLZKsaraeq261 JiWyLKZ0MSStlKXxT3Guc D2oTkLePDGzLHWoP7JapL OnAJbmV601KFyuZiA4MHO hgxXgD7XrDAVu kLyoFeY2u6K0On8ZWK7SE WJ6Q2PjKnd0CVScpKsgGU 0mpPHkBTeuTr0zeJlsqSi wSR0eNHWintkm YFEtqF5jNMIubIAveMvjR T9dKFZaqtqit025LnTtID W4QXCsjAJwX2BivZ7yYfM yRMBgKNXyT7Aq uZQcFAqbR667TLaoBcQ4C ALnxwCnE5UvAOLwbOalKg N2v2V4Oo0IdQFiS4CxA2i 3E6JpVcishTX+ LA78PNNcTC97pSRznLQts 7nxzRi7PfNtPIXfZJN9pR qrLTwve8IjIFTjE72leQG mc4I4ZFMpdYet tMCtRnBzlJQ2vG0sPBmhq gdrr8xkelgdBzjxp1lqrh 96nK66X56kLPymNHVzGOX zMCUiIHZhbGln gp4mmX0qVj8+LFJbpFN5s WP7kZ9xKpKkMoT1WSocR0 96PgVzeXNtOewsr7ldg4x kxNw7AfSrGOBc ewYbuKhiVYT9v4PbEq42V 29sIHdpZHRoPSIyMCUiIH VecZnnsv6crI1mPg8+PC9 qm2lrrf08pN64 dHI+TLWmGTI9jQckUIphF LKimU4nVUwmYaF7ZZPyJd UkaL90qWPeHWvtNh6cfEa npKuwNF2gEKAo qvdxf866LrEzz4edVNKur CFuWVtcGNM3R45po4J7ZZ VlRQClUBK2uXV4yE4cgZy nbjogbGVmdDsg ypDrsFfrNHwcRApdB096R MXfoWukAgOmgWLzP4ifkq ZOUN6wEiieuFB+PHRkIHN 0eWxlPSdwYWRk mS4cWCFcY3o8PkMlLtK5R GymS8BqvbQ3OBQmhTAnSW JypKJBwT4yqfeyb2pgrkf gIzAwMDAwMDt0 OEt7MLHykWfdJbFxEFI1O rI1VKH7pHNooH0kuMvqzf vpaJ3zLrt+RklOOjwvdGQ +AKBmLDS5cHli SBzrFXZpuX0kEQRtT8j5R rQaXdM7SXjqX4FukpM8SD AezUUoSLSauHHJrD7naqc ts3mmgympLmOv KHIjVPq4YJe3QZQktWsuG zQgSOE6EdL1OUP5bDYxmV 1wdUomylrrfU4uDra+TVJ OOjwvdGQ+PHRk MBX3uKfaDBwhBWHudP6dC PWuX7c8AeAsXmY8IZzwU8 QfnjS3LKUroTRhXSAxgKX CoC4zmwhid3lj wooyHpZkTJInDZg2KIl1I CYlxSmvGcToLFY8YqV3KK B0nETrmY8diDpprgcilS3 wOyc+LDX8HAT7 ZR42GH74Q0IbTtanhILbu +PHRhYmxlIHdpZHRoPS scBEFyLlLzgQyyEX8gUh2 yZGVyLWNvbGxh cHN (more content not included)... Normal [facility] ED Clinical Summaryon 2022 ED Clinical Summary [facility] - Emergency Department [address] [place] [id number] ED Clinical Summary PERSON INFORMATION Name: TRACEY LARA Age: 42 Years Sex: FEMALE : 1980 MRN: Acct#: Visit Reason: Back pain; Abscess - perineal or perirectal; LT LOWER BACK PAIN, ABCESS ON BOTTOM OF RIGH BUTTCHEEK Arrival: 12/07/2022 11:16:10 Discharge: 12/07/2022 12:44:00 LOS: 000 01:28 Check In: 12/07/2022 11:16:10 Checkout:12/07/2022 12:44:00 Address: [address] [place] [id number] PCP: Provider, Unlisted PROVIDER INFORMATION Provider Role Assigned Unassigned Elias Huff MD ED Provider 12/07/2022 11:20:43 Ashvin Hernandez RN ED Nurse 12/07/2022 11:21:41 VITALS INFORMATION Vital Sign Triage Latest Temperature Tympanic Temperature Temporal Artery Pulse Rate 107 bpm 107 bpm O2 Sat 99 % 99 % Respiratory Rate 18 br/min 18 br/min Blood Pressure /106 mmHg /106 mmHg MEDICAL INFORMATION Medications Given: Allergy Information: Aspartame; traMADol; aspirin PHYSICIAN DOCUMENTATION DISCHARGE INFORMATION: Discharge Disposition: Home Discharge Location: Home PATIENT EDUCATION INFORMATION Instructions: Acute Back Pain, Adult; How to Take Your Blood Pressure, Ibrj-ht-Tsxv; Skin Abscess, Nnwu-zm-Egkj Follow-Up: With: Address: When: Follow up with primary care provider Within 3 to 5 days Comments: Reviewed discharge care instruction. Continue with therapy as outlined by Dr. Huff. May take ketorolac or Toradol as needed for pain. Stop steroid while you are taking ketorolac. Contact your family doctor or PCP within the recommended time. Return to ER for any worsening symptoms especially any symptom that concerns you. You were found to have an elevated blood pressure reading in the emergency department. It is unclear if your reading today is because that you were seen in the emergency department with increased level of concerns or the situation caused a temporary elevated blood pressure or that your blood pressure is elevated and not adequately under control. You should check your blood pressure routinely, daily. Contact your primary care provider if your blood pressure reading is consistently elevated. With: Address: When: [facility] [phone] Within 3 to 5 days Comments: Wash the skin area of the wound and around the wound once a day with soap and water. Avoid using any chemicals such as hydroperoxide iodine or Betadine that might irritate the wound. After washing your wound, pat it dry. Apply bacitracin antibiotic ointment to the wound 2 or 3 times a day. Apply a clean dressing to the area 2 or 3 times a day or as often to keep it clean and dry. Follow-up with [facility] wound clinic for reevaluation Return to ER if there is any worse problems such as increased swelling, redness, significant pain or purulent drainage from the wound. DIAGNOSIS: Abscess, gluteal, right; Acute left-sided back pain; Elevated blood pressure reading Patient Understands: Yes - Patient/family/caregi sanjana verbalizes understanding of instructions given Comment: Normal [facility] ED Note - Physicianon 2022 ED Note - Physician Patient: EMILE LARA Age: 42 years Sex: FEMALE : 1980 Associated Diagnoses: Abscess, gluteal, right; Acute left-sided back pain; Elevated blood pressure reading Author: Elias Huff MD Basic Information Time seen: Date & time 12/07/2022 11:30:00. History source: Patient. Arrival mode: Private vehicle. History limitation: None. History of Present Illness The patient presents with abscess and left lower back pain . 42-year-old female presented to ER for complaint of left gluteal region abscess. Stated that she had previous abscess, several weeks ago. Was treated with drainage, apparently had resolved and improved. Patient stated that she had an another lesion on the left inner gluteal area, perineal region, started few days ago. Reported that it is gotten larger, more painful and tender. Expressed concern regarding the enlargement in size, presented to ER for further evaluation. No fever, chills. Also noted that she reported having left low back pain, from the lower thoracic region into the left sacroiliac area. Also pain to the left hip as if she feels if she needs to have it popped. Pain with range of motion of those area. Symptoms started spontaneously several weeks ago. Stated that she has multiple medical problems including spinal stenosis, fibromyalgia, other rheumatologic condition, and has seen her PCP for this. Supposedly patient has multiple scans scheduled. Multiple work-up scheduled. To follow-up with PCP. However because of increasing pain, had gone to urgent care. Stated that she was given Medrol Dosepak and muscle relaxer. Stated that they are not helping. Noted that she had previous ketorolac. Noted that it helps a lot. Requesting medication for ketorolac Review of Systems Constitutional symptoms: No fever, Skin symptoms: Lesion. ENMT symptoms: No sore throat, Respiratory symptoms: No cough, Cardiovascular symptoms: No chest pain, Gastrointestinal symptoms: No abdominal pain, Genitourinary symptoms: No dysuria, Musculoskeletal symptoms: Back pain. Neurologic symptoms: No numbness, no tingling. Health Status Allergies: Allergic Reactions (Selected) Unknown Aspartame- No reactions were documented. Aspirin- No reactions were documented. TraMADol- No reactions were documented.. Medications: (Selected) Documented Medications Documented furosemide 20 mg oral tablet: take 1 tablet by mouth once daily if needed for SEVERE LOWER LEG SWELLING. Past Medical/ Family/ Social History Medical history: No active or resolved past medical history items have been selected or recorded., Reviewed as documented in chart. Surgical history: No active procedure history items have been selected or recorded., Reviewed as documented in chart. Family history: No family history items have been selected or recorded., Reviewed as documented in chart. Social history: Social & Psychosocial Habits Alcohol 11/20/2022 Alcohol Use: Current Frequency: 1-2 times per week Substance Abuse 11/20/2022 Substance use: Current Type: Marijuana Frequency: Several times per day Tobacco 11/20/2022 Smoking tobacco use: Current everyday tobacco Number used per day: 1 PPD Electronic Cigarette/Vaping 11/20/2022 Electronic Cigarette Use: Never , Reviewed as documented in chart. Problem list: Active Problems (1) CHF (congestive heart failure) , per nurse's notes. Physical Examination Vital Signs Physician Practice Flowsheet 12/07/2022 11:39 EDT ED Assessment Adult - Text (Modified) Respirations Unlabored Respiratory Pattern Description Regular Left Upper Lobe Breath Sounds Clear Right Upper Lobe Breath Sounds Clear Right Middle Lobe Breath Sounds Clear Right Lower Lobe Breath Sounds Clear Cough Able to clear secretions Skin Color Normal for ethnicity Skin Color Normal for ethnicity Skin Temperature Warm Skin Temperature Warm Skin Description Dry Skin Description Dry Skin Integrity Intact Skin Turgor Elastic Mucous Membrane Color [place] Mucous Membrane Description Moist . General: Alert, no acute distress, 42-year-old female ambulatory, walking with normal steady gait, indicating pain at the left back, left hip. Indicating pain at the gluteal area from her abscess, Body habitus significant for morbid obesity. Skin: Warm, dry, intact, normal for ethnicity, . Head: Normocephalic, atraumatic. Eye: Normal conjunctiva. Back: Normal range of motion. Musculoskeletal: Normal ROM, normal strength. Neurological: Alert and oriented to person, place, time, and situation, No focal neurological deficit observed. Medical Decision Making Differential Diagnosis:: Abscess, Back pain. Reexamination/ Reevaluation Relavant differential diagnosis: Continuous abscess. Low back pain. Sciatica. Number and complexity of problems: 42-year-old female presented to ER with several complaints. Mainly the abscess. As an asid (more content not included)... Normal [facility] Comment on above: Order Comment: Elisabeth fernández Attachment [id number] Can be viewed in source system ED Patient Summaryon 023 ED Patient Summary [facility] - Emergency Department [address] [place], [place] [id number] PATIENT DISCHARGE INSTRUCTIONS Patient Information Name: TRACEY LARA Age: 42 Years Date of : 1980 Reason For Visit: Back pain; Abscess - perineal or perirectal; LT LOWER BACK PAIN, ABCESS ON BOTTOM OF RIGH [place]HEEK Arrival Time: 12/07/2022 11:16:10 Primary Care Physician: Provider, Unlisted Attending Physician: Elias Huff MD Comment: Visit Diagnosis: Diagnoses This Visit Abscess - perineal or perirectal ([id number]) Abscess, gluteal, right (L02.31) Acute left-sided back pain (M54.9) Back pain ([id number]) Elevated blood pressure reading (R03.0) The Pharmacy at [facility] is open Monday through Monday from 9A to 6P and Monday and Monday from 9A to 5P Prescription Information: If you have been given a prescription for narcotics, seek immediate medical attention if you have any difficulty breathing or any sudden status changes such as confusion and sleepiness. If you or anyone you know is experiencing suicidal thoughts, mental health, alcohol and/or drug addiction problems; contact the [facility] 12/12 Crisis Hotline -Text 4HIEU zf 931904. If you received any narcotics, sedation, or any other medication that causes drowsiness for the next 24 hours, unless otherwise directed: ? Do not drive a car. ? Do not operate machinery such as power tools, lawn mowers, drills, sewing machines, or stoves ? Avoid alcoholic beverages and drugs for allergies, nerves, or sleep ? Do not make important personal or business decisions or sign any legal documents With: Address: When: Follow up with primary care provider Within 3 to 5 days Comments: Reviewed discharge care instruction. Continue with therapy as outlined by Dr. Huff. May take ketorolac or Toradol as needed for pain. Stop steroid while you are taking ketorolac. Contact your family doctor or PCP within the recommended time. Return to ER for any worsening symptoms especially any symptom that concerns you. You were found to have an elevated blood pressure reading in the emergency department. It is unclear if your reading today is because that you were seen in the emergency department with increased level of concerns or the situation caused a temporary elevated blood pressure or that your blood pressure is elevated and not adequately under control. You should check your blood pressure routinely, daily. Contact your primary care provider if your blood pressure reading is consistently elevated. With: Address: When: [facility] [phone] Within 3 to 5 days Comments: Wash the skin area of the wound and around the wound once a day with soap and water. Avoid using any chemicals such as hydroperoxide iodine or Betadine that might irritate the wound. After washing your wound, pat it dry. Apply bacitracin antibiotic ointment to the wound 2 or 3 times a day. Apply a clean dressing to the area 2 or 3 times a day or as often to keep it clean and dry. Follow-up with [facility] wound clinic for reevaluation Return to ER if there is any worse problems such as increased swelling, redness, significant pain or purulent drainage from the wound. Medication Information: The exam and treatment you received today in the [facility] Emergency Department were for an urgent problem and are not intended as complete care. It is important for you to follow up with a doctor, nurse practitioner, or physician?s dietetic assistant for ongoing care. If your symptoms become worse or you do not improve as expected and you are unable to reach your usual health care provider, you should return to the Emergency Department, we are available 24 hours a day. For those patients who have received Radiology results, the interpretation of your X-ray as given to you by our Emergency Department physician is only a preliminary report. The Radiologist will review your films and if there is a change in the diagnosis you will be notified by phone. Please make sure you have provided a working phone number so we can reach you if necessary. In the event that you had a lab culture while you were a patient in the Emergency Department, you will be notified by phone if there is a need to change your antibiotic. Please make sure you have provided a working phone number so we can reach you if necessary. [facility] Emergency Department has provided you with a complete list of medications post discharge. Please inform your physician assistant primary care/provider of your visit and for further instruction on these medications. Any specific questions regarding your chronic medications and dosages should be discussed with your primary care physician(s) and/or pharmacist. New Medications [id number], [address] [place], [place] [id number], [phone] ketorolac (ketorol (more content not included)... Normal [facility] Coding Summaryon 11-30-2022 Coding Summary HTMLBase 64 EbwdmsgmHKe8eZd+PGhlY WQ+PV5QZRIdE66oqKKatI 9xS5VQDTdIXkenWVIRJZa KZyEstmRbVP3bsEDlJZTk IC8+HE9jXZHaDedxcSFwf 5X8jAG0I95yte1dIKshhR S9GXPnTaHvakrmn4oefMx 6IDcuNmluOyBt EBHufJ39FOB2dE34Sz31c SAtrMBif4fgePu0YyLxUK DxGIT9mKwzKMeyx7KrSBE iZ71ehZVrx7N5 YZTdbJqcaGDvXtWbhMO0n R8iWKqlyjhtw4wedlbzKv x0pi25fYGmj6C7iDF4N1L dheB4LVEdjFYv UmskxPYNtG8jnvbvb0uch zsxOsMnDVQlTRe8FDy3RQ OiiLaiNrEnCP77COB4HZJ xptEcO4QvFLCz fZjlWjJ1u7X0Kf2PV7XGT pkfL0OFXRKUUIzjaLS+PC 24la72C7JeCzknLyh1VTR hLUO7oRF0tO6b LPHdEYwue2F8wRB5G8Jty iMlbd6wg7yjRRGmWPdrP7 6exVVmg4N9DMHcfWC3ZGC lhDgzRwSsjX28 Oyc+YPYoxPcey5HhNoxfo 3ibz3rzzNa8BpbjBLXejx DpvXyyOCT3h0VjWh9tPFT alJD0yBC2mQ5u RkOgSrM7SGimD499DfWxh KYkRhvlT41hE4GgnJY+PH WcTsj9MZOrbFhzRL2pW9A hZGRpbmctbGVm eEdsEH7qJFXmawjiJPIgf T4pCIKqB1j6AnCaFbN0XT kzI0VxNGNoivwoXj84qN4 eXcZhGqX9DOdx T4FqksF2QLNgoLFdBDpdB JH5M40hm9G2QJVnFDDcTL T8oUU3bX2geQysztixiTG mdDsgdmVydGlj YWixYDnxM330NDIbnAnxA kNvZGluZyBEYXRlOiAgMD cvMTIvMjAyMzwvdGQ+PHR dIWK1aOguDURq wBXpTElnDl3bqXwrkHffJ O5eHWLgazaqONZdrX5kVC AhhPUihRbbAI7fGABaqyt qn332HyUjTIC4 TYOggZFbB7YkzS6lLhZxD YSsVNEzA3WnoKPdJEylA6 54AKjcZwB6XTNnkxEaX0Y sLWFsaWduOiB0 f7C4Ml7Ab6WpgxbtC3Lqp QMiOqXcGzhgYBw3U2GfLh wvdHI+MO06BLTwLA06ZTs 6WWK2oKzqGUal NESuK2UctF9kWjRfXTCpE GRkOyc+PHRhYmxlIHdpZH RoPScxMDAlJyBzdHlsZT0 mLn5oKAYtPJWl hVxlvXNsMiQlf0viCXOtI XjcJE1esNqvJ6WbjVE3QP Gzk3t6Br06S56hF1FtxEL +YWVotPS7dFN9 jN2jHeHgHtS2GJtoY861W iZdqYIcQkvot3kzq3ogyD t5KzM7TJBcbbXqwPmxJXW 9e0UqNd80B11c IHdpZHRoPSIxNSUiIHZhb Umtyu2uiO4aEn7+PGNvbC T4rSF7uY2qTgHsXnX5KVc xT434NlVbqVXb Luwjw1gmm2rlzCu5HzRfQ MCzpeTxpBvyUOI1b2RkHr 45J7XhnRqxc6QfGft8re8 2xDZja9H7oSD5 Z5ScJDVbjqdxfLOgiZjvG H4yZQTwcrakHZRjsW1cIW FvR7b0LpRwFeR4MJxkH9O qadS7ZBUanINx ZXRilDIEyR1gjphrc6wxm kejPzYbULNiNRn8IKe6BJ EumYkgBzXlCZK6GeS7KJB 7eQTluW2ceIyn bweieK5sIhf+GRV7oWGuy YJCOB1kSgfccLK+PHRkIH Y0oJsyCNaqCLDrzQ1pSIW eA7i6GrKtZmE6 OTypN9ZqatO3WBIiwPAxB EOucSJGgQ3vmktni3iahn ocJxTlNBAiEXr1RZw3NQD saWduOiBsZWZ0 RuT7XFG6oXCroD1kqAzwp ihxzX0dBce+QmlydGggRG W2DSn1S6AsRzi8TYLamOv uUF4csJTiLVbh Rv9fqUqseSloOM3gEFWtq tzqp531NjRqt3pqGNCcyU NqSMhwUKE2A63pp4E4LCX nSGItNIL1aBH9 rE9biFgkghvtpFKmsDkif fMwtSqgUGzsMMbhS142HK RwtBqpYcHtSEi5P0BwPqq 2LEMyyJtrDD0z fWSdWYokQs6poRqilBchK Y7dDRCmzvhox481CaFlg3 nuBGYndPBsRIovQNJ2B01 gu4G7IBGgOXEz QBA4cTU3nP6zsPzfotzgl GVmdDsgdmVydGljYWwtYW yaT528GXPrmGxcMiFenPj 7S2ToDrn9JMOn oVcfCQ9ebSZkRHovDb6sl RppeTboNK6sXPRiponcb5 50KlMtd6dzVKZubEUrJZe vMUF8F45de5J6 OBJpTGCcWKW7rRB6bZ4mz GlnbjogbGVmdDsgdmVydG qfSYznNCzgZ147XVAxjIr nPlBhdGllbnQg WYkuVHz4U0ElHdnanXJ+P J49PBDfBT12dZOwxNAyo0 ltjGu2BuMmTXUcSTW0dNh dENhsn2NnSKZn F18bzGDrs8I6XFHupEeyu OUbMcKqiPU3lE0jTYohue dey5jlxbkfFajph9tzdi3 5kA96T55fSRsf ZHRoPSIzMCUiIHZhbGlnb f8efX1tAu3+TNBxyOK2mV W5fL0dQZErUoG8SBcnU46 9InRvcCIvPjxj l9twc4vzmHt3SpT1UHHxq cFbuRdsATN4q8KhEz91F8 9sIHdpZHRoPSIyMCUiIHZ mqGhugd8bdU0v Ii8+KOOxfZN4pFN5tA1wX wSjQnG2ZBovG355WkNbdC LoOxwbG18fF8VamDM+PHR nIwu3CLQjjJsv OU8yyCJtEXwcDm3kDUQ8N eRxUbTnATekP7NhSPGjao imhdgyxTW4UUXgKGBfaY8 8Lx3abCozASAj xLGSwE2jqopon2eliplfF bEeTLVjEBl0NTr7JGVthD gzEyEjJAR8HuA4NBL0sGH irG3xyWngluww uV8kV7JlHCFrxkriYb57v D8jTuVmNxE1LPoiMab+UE HKJ0RkDPSTDiIENEk5K2Y lPlj5CFIqjHwo FV1tnKRuFTwtWb2wiOywz PscZP7pRVQmipelVOGewX 0nTSYrpEPltHqwHM5hQBR uvvduo060JpZe QCP3HMKxnSPbA0WvfL1gF zYcGMYfNUVhM4RpgPRsYG bfI928TTubGrR6SGKbtaS mS9OeRRKeaSmg ZwJ8y9M4Mj2uCY5wMP7tF YmkGR57EN05aHXze2U5gE D4G0TyKCJdxsdrqijucVN 9CLIwOFUxbG16 sJMkELvpVc4nj6U3x164Q JQzTRXfjS59Ch1coKhpVU WciVEIvR5ldfhhg1sobtv gIzAwMDAwMDt0 VSf3KRAanQfaCmWrKQE3D wP6DSY9aBKqaI3gvEhxcv dbiN1wGvl+NDIgWWVhcnM 1X0SuBew0BMCj zTemZK2lgQNzZEueFz4jv SlnhTzhZE1bCQPyuwjqOL EwvG8tUTWrrKTffFxrLJ2 zGBRzcdkhk424 RmNtXDL5BEVvcOMiA8Chd W0tRgKyHVMyHNEuK0DorD HzEOiyD086GYllBwS2PEU nbbBsT7AnLNQd gIfdMhU1w6E1Nq7UJP2KE YQ7F0IkDat2IXNzmSweTZ 7dlVTfJHfwWd7rvFikaJo zZP9eARCuzkpu MZDmmF2eVXZbiBUuhZjpS Q3hECPjckbkv263GkIqOZ W2QJNdlFOvV4LggM9eWuW bSUJdMBGpV8Uf aZOlYLdaQ401UJneCuC8X ZCavjQvD9JkODBtfWexYi F8t5X8Zx5GuWGcY2LxQ9j 0T6LbWsigeSX+ NC03KPRzHE99bIHqyUPfy 5kpfUx3XiOoLBLfURM7eQ qkKVfmk5ArQNJnB41bwOA vk1V1LEWijAsq dDFlUuYndXV1gY1rEIcqv shng2ywbirjVjwgi8ybmg 87kV76M48pPSnwOFJaBPI zMCUiIHZhbGln xk0prR9dFx7+GBSbyNX7j VW9dU3wOfSuIwK5ARjnC0 80FqEuyVVeCwblb3afx1s ilRz4IeLnVBXq zgOftVlaHVQ2b0DkEk74Z 29sIHdpZHRoPSIyMCUiIH VqgBhzar4fjP3vVc3+PC9 xk8homm95uU77 dHI+CMCgIEK9uWmeLNayB JGzeT4pKEcjPiC7LLOsBy NqmY79qTGdAAwoCu0srWr szJmrUQ7iXDSy wworx345OzLap6jhMBFfm DFyCYetFHJ5F33yg5T4OK DjRVKfSNI0rVJ0nV8xjQf nbjogbGVmdDsg ouBdhHbgYVbnQLsfI002T POcqTpsOfXjmIUfZ9wfhf SERP1pQvgotRX+PHRkIHN 0eWxlPSdwYWRk uO0kXNWnC8o8JaLuWfJ4M VwxF4HhevO7XUHeuAQmUU WyfNDTbX5mixpyx8gxcux gIzAwMDAwMDt0 IDc3EZHneYmiCeBcOEV1U bN4KGW0fLZozW1inDlafb yfgI1pKoe+RklOOjwvdGQ +BOSrOJF9lAsl YDmuXSCzvB4kPLGiJ0e5I lLnIgU9XCkiT9BshpO8OY YurAPgJSLszKXWzB0mbzy ws0spkvbaPcBh HGLvKRy3GGh3VEIkoWloO nRaGZY8RsK3PUK3kAIqfZ 4swEehfjexeV1wFwx+TVJ OOjwvdGQ+PHRk XGV9vFrdENsxCSTbsZ6vY DAsT2u1FfCwZtF6TZdyH5 LzizE8OXQcaTDgTVMqmRJ BdD0gzhdee1ux lfawOqPgKIMlMRl6PTb7S HFikHjfGrMfVWL0NcT0UO Z0eCIniR2ddJdxylxgoA0 wOyc+KHF2LQS0 XR62UI38I3IcTatsdGBbo +PHRhYmxlIHdpZHRoPS nhZWBwNzAxfNgdBF0pVc9 yZGVyLWNvbGxh cHN (more content not included)... [facility] Coding Summary HTMLBase 64 BfemylucXHw5cQp+PGhlY WQ+ZH4LTUOgI05yiRYjuR 5oC0XKRMiSUzciKQFOYQf HQpOeueHpSB8ocNNnHBZt IC8+EE9uJGWsLoyrlKLok 8I5uHH5T76dfy5aXZimvA P4OKBxYrLrnzvyx6dcbUr 6IDcuNmluOyBt CDKlxG69CWF1fW07Ps64u LGlrOPot1zaaOy9FaRwRM YcYAT5uFhsEPfvs0HgTZT vR66clRIya7U6 BVLwvZulaILqKyRdyZM8i W2lERqvvegic3wtfarbRs a3ro20lKLme8S8hVS5Y7X iwfJ6QLLieYJd OtxiyJPUpP9gyirjs4wgo bbhWsJbGRCrJIe8FNm4OK LhcRcrKtJwGK00PEM3EPR uxnXmK4FoIZBc nSrbCvK0h4Y4Dd4OH8UTN xfhU3MQNOMZRPgbfAL+PC 19pv60D6SpTojtAqb4VDQ eFQG5mNP2pJ1o ZAQeWDguy9Z4bXR1T7Pei aXfun1qj6uwHYFjSNnbK8 0shZNdh3E1QWKlcWY7QCG auXxxXiKizO70 Oyc+VQKtgXuko1KiUzxko 3cll4skxUx8BvfiUDHrmw JynYehOZB5q8SvCg3iZPN myVB7kMY1zT6p GaLoIqJ1VChvQ078KlQrx EIeOjptA77cS4TeiTH+PH NnVgv3AFXiiUblPL6eD1A hZGRpbmctbGVm dBlzHB6yYNAvrwqcEPIlc D8hPVWlS7u5PhXoKrG4QM qfA5NjIOSebfhmEr79aK6 kIeCvTaZ8BUzd J0IjanO4VIIpfPNzRYnuJ WS3V97gm4O5GJQeBLAlJH F6cDL6tL6vmPjfymmcwMJ mdDsgdmVydGlj PNccLCrlG452QOUegQoiD kNvZGluZyBEYXRlOiAgMD cvMTIvMjAyMzwvdGQ+PHR tLVA0aFetKBZm sUZxOJkgKt8ejMccsCwjL V1zORMrsncrUQMpoB4iDG MocPGbpXxxZV9sZIOvuve cp160BxXcNVL2 FWRvxKCtH4XtxY7nVvNbV LCjBDAbC1HieOSjMSgqF9 59SOqzBtP6IJWpdtMkT1J sLWFsaWduOiB0 i5W3Om6Vi0SwsesoV7Kur JBzVkQhGdaiEFs6G6VwEv wvdHI+JZ32FQJtEX65XLb 5BXX7cMleIZyc SPQmT1NpwH5oWiJzBVOwJ GRkOyc+PHRhYmxlIHdpZH RoPScxMDAlJyBzdHlsZT0 sSw7sBTPdTWCs vLfexSXcWlMef0pxDDMpI PtgHK7tgPamG7QweSL2CN Rrs9o6Pa86G74fU0OndOR +VSEvoVM8jKZ1 oY7tMbXwRbF7QUdcG007X tUprMWxQyeed3thx0ympK p7KuY1HRLserMsfFffKZN 4a9AkPj99P48p IHdpZHRoPSIxNSUiIHZhb Ggwxs0ozI3hZk9+PGNvbC M4uMB9oH9dKdOnGbI8JUx eC944QiXjpJZc Nbuej2giz6pbgGe0JnNbZ ZSmdaTxgDptFQJ1m3TxUp 70L0BnwLtjy2AlTeu9am0 3hNIfh6K6iZE8 X7PdQHTzbgeseFJwdHtjU R5eBXPevbqwOZAhyW2dAX TmI0x3KkIkVuN0RWsaX4Z zrlC3JAVwgDKh LJJbvTIIaW1fvifpn6lfk dgqNhTvXSFpHOk2IUo4MW DlrYpqXiJbNFR7FfB5XMX 1iFAzyN7lnDjt srwcjU1jEan+PBX1uJUzq CJWXQ0wZwfedNP+PHRkIH H6pNnaMDxvRJAhyY4mWWK hK3x1AhTrIeN4 BFotU9CzjdL8EQPdxFVkG FSiuIHQeF4tmbooz8uirb opCeRsCDCnJIc3GWn4ATY saWduOiBsZWZ0 ByD9NDY4zOSaoQ6gmVmvh othqW7kQlk+QmlydGggRG V4ISn6U9NyIgw9DEVtbNo fOT8tzXAlQPve Yp4ycKtbkHrbTM7nZAWuc subt127IgHkv9omIHMqcT XhBYqzCFY4P09el6Q9SXL lQDMyIUV6hKR6 kG3luGxfhydkwSFquYnkp cVrnVhbKVssVGftB758AL QxjFhxWiYbMZn0T2HiChw 7VUZfoBfmKI3d rBHqIZcbVw5stNialPxyA Q6lZZVcjdkrb104KaIcy4 bjOZHjtAWcSFdyFGW8L73 di2C2EXHdIBJg GMB4rKR5hA3omGslhgyub GVmdDsgdmVydGljYWwtYW buD623ZDWtkImoTgQszBt 8L7KkTuo7PHKp yUoyLT6iuOKeVRsaIm0rg NlvuWhiQZ5oIUHwmnjft4 48PuOie9alVHUfhNAxAVo dSQB4T72bo6R2 AXLxMJUjUEL6jEV8rT0jj GlnbjogbGVmdDsgdmVydG ydVFtvZPxgU830FFGfiXu nPlBhdGllbnQg EIdiWEq5U7IpJkjwuHP+P I12EGZfOU51hEApbTRwb3 zfnCb9XuPzYMNqJNS2yGj iXFeje7FpLKXv X37gqQAuw0J3RDUsxBycc TOqUtUitWF1lH8pBStjqd mfm1oxzytdVuzrl7cfgm1 3zR13Y35oQUll ZHRoPSIzMCUiIHZhbGlnb i7kiR2gBw5+IVIdlDV0iX R2cN1eTSNjZmC5XIasI54 9InRvcCIvPjxj x9vqd8wmxDq1JhS2ODKcz eVreIuhLDR2e6FgKw87N6 9sIHdpZHRoPSIyMCUiIHZ znMgygl0ipD4b Ii8+FQOlbVE0lUL0vR5jJ fImDoF4CXjwW641IlEsoU StNcagU76jD8MdrFW+PHR fUjq6UQKloKun OM4ifBBoLBapUi4kAEJ8J gUuAcFrHRvrK2StFEPhma ntarforRM0SEBfWDLwpQ6 4Tz1tdIqdIBIu dRZIrW6ajptje8kmiyuyY mUyLYTpMNk5ZDg6BMGrvH veCnFeVFK2JdI8CHP1nBM keB4qiEkyygcg hT0dX2NjXRBbxuiwJr97m U0vQpOsIyO4PGvdOup+UE XIV0UrIFFTIzXWPDv1W9D tGhx4KBIlqJga HP8ptDZjZOpcUv6rjAcvr IlzZM3eOXVjkoitIEAbeD 9vSBBoeFZhmAtvSJ2oIGS zezkic538GqXf HDM5DNAtqAEbI4OklH3wP aNbSMJpFQGuA1CdhKZjFI pyT022RBnqZfP5KZXdrgU tR2HqWUYpeIuh FiL5j4V5Bv5qTI6pVI2jT DzrGH71DC22dSNlu7Y5yJ V6Y9BpXRRyrmvgrrycjGI 3CFLoCNPugP67 oVWgDNwmPx3vh6C0y002X HTxZHDkcX07Go9auPrhCL UwiCYRkS8lluwyc1wciep gIzAwMDAwMDt0 BGi9MKAsaLvfGnUoFCJ9S bU7JGA6nZGjeI1vpGaozk ihbY2mDiv+NDIgWWVhcnM 6L8JfLai6KNHa pXfrNN6upWBwOXubAm3su TkrbMbxKJ4rAUHodityZC GpyB2mGWZwrUGvtXekGB0 wLJOcihiwl607 PfXdWGC4PGBqvIQdC4Jlw X0pHmTvSXFmRYCcG8WtfB KhYUliB601EMasOeF9DBK knhXbF6JwZFAk lTrzTkY6u0B9Xf1OJZ3JH PC4Z6QjEcm9VVLraSeiYB 8qfWAnUCuyKk8mjQbytGj uIO0mKMSopqkz XZLpmR9aVEBjoORdrLzlQ I8cFXWnbdkoz630SoAtHW W9SZWcwUVnN6UklS7nVjX bCEIwIMOdX3Ne gHVgUXmvB313DWxsOaA7D MAxizQdA0FpUMUgdQjmQu U4m6D6Tv9EwHWuP3YzM9a 7K2DgWoxzwPN+ TJ93PUYsKM64rYFekBOsv 4xasHn3GpZpTMZuUNS0eU afXQjeb7IiTMOgK13vwHV yg6S3HHAohDlg zJNoUhOdvDO1jE7nTApme wxyq7zurivqCzljw1aeba 72sH18R57uOZsvPSKbEJR zMCUiIHZhbGln pf3bsL2yRe1+QFXruBA2s FQ4eO8wVlCoVdJ6HTykT5 41GjQlpFKfUjrly8kyt5p gaSa9FeDfYSWf xjDuhMtwDJJ7h6ZwPg21Y 29sIHdpZHRoPSIyMCUiIH WrpQzlgg0yeZ8dLd3+PC9 wm9kchc20kZ37 dHI+IWUvBIC0qYgwZSoiZ DByiR6sFPljQzF6HBErXp IkiU28jKWxBLzwIq4ojZn jnHuiMJ9tXLPu ddpkt526GfRzb4rnHRAoy PZqFPmnFOD9Q06dr2A3IW PnMOQzWEH5cKL4zM6cvIq nbjogbGVmdDsg xxHwaVnbARuzKKgiP071A PUtvShpXpSgaVHrM0jahi SIKT6xRaxqqGW+PHRkIHN 0eWxlPSdwYWRk cH2gADPhH8b6FaFyMpG9E LddG1ZuvkE9QGDxhALnBC SnrLYVjB5dewwbw3rfzqw gIzAwMDAwMDt0 DQf7MUGpgAiuJxKdPUM4X zN4YME6bFUblY3beJigwk mzqQ8rKjh+RklOOjwvdGQ +WQUnHKK3iVmc GBmfZXWueC7aVWEqC6s5Y hDyLfO1MLkkA0ZjlcZ0MD ZrzJIgOFIqeRAFxO0qqjx gm2xggsldPnBm QSSzFVm1ZAm6FWFwuDdgU sUfYBQ9WaU6OZT3nJAcfV 9zaNhpxhyjoY2vCir+TVJ OOjwvdGQ+PHRk FRC9xZerVHrtWMEgfG1zI BSjU0t0SpKyXlX6FMooE9 QqrmW9EQXnfTQfMKLwrIX KiV2gtakpc5wx ksetYpAnBTNnTFl7JXv9Q GPgeYgiAnHhTNM8IlJ1ND E5hQXxfF7uiGtcyjgaoF8 wOyc+GYT6WXG4 CD54FB24W5TmIiaprSOkz +PHRhYmxlIHdpZHRoPS ywBCRoXrFiqBtmII3lLs1 yZGVyLWNvbGxh cHN (more content not included)... [facility] C Anaerobicon 11-28-2022 C Anaerobic No anaerobic growth at 7 Days [facility] Comment on above: Performed By: #### 7 [id number] ####[facility] (DEFAULT)[address] [place] [address] ED Note-Nursingon 11-21-2022 ED Note-Nursing Patient calls and states she was given a prescription for Tramadol and she had requested Toradol for pain last night. Patient states she is allergic to Tramadol but does not know what type of reaction she has to this medication. Tramadol was added to her allergy list for future visits. [facility] .Auto Diff 1on 11-20-2022 Auto Bee % 6 % Normal -12 [facility] Comment on above: Performed By: #### 7 [id number], [id number], [id number], [id number] ####[facility] (DEFAULT)[address] [place] [address] Baso Abs# 0.1 x10 Normal 0.0-0.2 [facility] Comment on above: Performed By: #### 7 [id number], [id number], [id number], [id number] ####[facility] (DEFAULT)[address] [place] [address] 82165 Basophils/100 WBC (Bld) 0.5 % Normal 0.2-2.0 [facility] Comment on above: Performed By: #### 7 [id number], [id number], [id number], [id number] ####[facility] (DEFAULT)[address] [place] [address] 20510 Eos Abs# 0.1 x10 Normal 0.0-0.4 [facility] Comment on above: Performed By: #### 7 [id number], [id number], [id number], [id number] ####[facility] (DEFAULT)[address] [place] [address] Eosinophils/100 WBC (Bld) 1.2 % Normal 0.9-4.0 [facility] Comment on above: Performed By: #### 7 [id number], [id number], [id number], [id number] ####[facility] (DEFAULT)[address] [place] [address] 46075 Lymph Abs# 2.4 x10 Normal 1.3-2.9 [facility] Comment on above: Performed By: #### 7 [id number], [id number], [id number], [id number] ####[facility] (DEFAULT)[address] [place] [address] 42601 Lymphocytes/100 WBC (Bld) 19 % Normal 14-48 [facility] Comment on above: Performed By: #### 7 [id number], [id number], [id number], [id number] ####[facility] (DEFAULT)[address] [place] [address] Bee Abs# 0.8 x10 Normal 0.0-0.8 [facility] Comment on above: Performed By: #### 7 [id number], [id number], [id number], [id number] ####[facility] (DEFAULT)[address] [place] [address] Neut Abs# 8.9 x10 Normal 1.5-9.2 [facility] Comment on above: Performed By: #### 7 [id number], [id number], [id number], [id number] ####[facility] (DEFAULT)[address] [place] [address] 95067 Neutrophils/100 WBC (Bld) 72 % Normal 44-88 [facility] Comment on above: Performed By: #### 7 [id number], [id number], [id number], [id number] ####[facility] (DEFAULT)[address] [place] [address] CBC w/ Auto Diffon 3 Erythrocyte distribution width (RBC) [Ratio] 14.7 % Normal 11.5-15.0 [facility] Comment on above: Performed By: #### 7 [id number], [id number], [id number], [id number] ####[facility] (DEFAULT)[address] [place] [address] Hematocrit (Bld) [Volume fraction] 40.2 % Normal 33.7-40.4 [facility] Comment on above: Performed By: #### 7 [id number], [id number], [id number], [id number] ####[facility] (DEFAULT)[address] [place] [address] 44149 Hemoglobin (Bld) [Mass/Vol] 13.4 g/dL Normal 11.3-15.9 [facility] Comment on above: Performed By: #### 7 [id number], [id number], [id number], [id number] ####[facility] (DEFAULT)[address] [place] [address] 51135 Man Diff? Auto Invalid Interpretation Code [facility] Comment on above: Performed By: #### 7 [id number], [id number], [id number], [id number] ####[facility] (DEFAULT)[address] [place] [address] 88011 MCH (RBC) [Entitic mass] 31 pg Normal 24-34 [facility] Comment on above: Performed By: #### 7 [id number], [id number], [id number], [id number] ####[facility] (DEFAULT)[address] [place] [address] 55973 MCHC (RBC) [Mass/Vol] 33 g/dL Normal 26-37 [facility] Comment on above: Performed By: #### 7 [id number], [id number], [id number], [id number] ####[facility] (DEFAULT)[address] [place] [address] 00921 MCV (RBC) [Entitic vol] 93 fL Normal 81-100 [facility] Comment on above: Performed By: #### 7 917750, [id number], [id number], [id number] ####[facility] (DEFAULT)[address] [place] [address] 78524 Platelet 234 x10 Normal 138-427 [facility] Comment on above: Performed By: #### 7 929236, [id number], [id number], [id number] ####[facility] (DEFAULT)[address] [place] [address] 46686 Platelet mean volume (Bld) [Entitic vol] 8.7 fL Normal 6.3-10.2 [facility] Comment on above: Performed By: #### 7 807505, [id number], [id number], [id number] ####[facility] (DEFAULT)[address] [place] [address] 53420 RBC 4.32 x10 Normal 3.70-5.30 [facility] Comment on above: Performed By: #### 7 [id number], [id number], [id number], [id number] ####[facility] (DEFAULT)[address] [place] [address] 39644 WBC 12.3 x10 High 3.5-10.5 [facility] Comment on above: Performed By: #### 7 [id number], [id number], [id number], [id number] ####[facility] (DEFAULT)[address] [place] [address] 39951 CMP Standardon 11-20-2022 eGFR Non AA >60 Invalid Interpretation Code [facility] Comment on above: Performed By: #### 7 [id number], [id number], [id number], [id number] ####[facility] (DEFAULT)[address] [place] [address] 91444 eGFR AA >60 Invalid Interpretation Code [facility] Comment on above: Performed By: #### 7 704012, [id number], [id number], [id number] ####[facility] (DEFAULT)[address] [place] [address] 48244 Albumin [Mass/Vol] 3.7 g/dL Normal 3.5-5.0 [facility] Comment on above: Performed By: #### 7 744727, [id number], [id number], [id number] ####[facility] (DEFAULT)[address] [place] [address] 03476 Albumin/Globulin [Mass ratio] 0.8 {ratio} Low 1.4-2.6 [facility] Comment on above: Performed By: #### 7 409287, [id number], [id number], [id number] ####[facility] (DEFAULT)[address] [place] [address] 81239 Alk Phos 69 IU/L Normal 32-91 [facility] Comment on above: Performed By: #### 7 521092, [id number], [id number], [id number] ####[facility] (DEFAULT)[address] [place] [address] 71055 ALT [Catalytic activity/Vol] 30.0 U/L Normal 14.0-54.0 [facility] Comment on above: Performed By: #### 7 003980, [id number], [id number], [id number] ####[facility] (DEFAULT)[address] [place] [address] 10182 Anion gap [Moles/Vol] 10.5 mmol/L Normal 5.0-19.0 [facility] Comment on above: Performed By: #### 7 072605, [id number], 43302413, [id number] ####[facility] (DEFAULT)[address] [place] [address] 32299 AST [Catalytic activity/Vol] 26 U/L Normal 15-41 [facility] Comment on above: Performed By: #### 7 795225, [id number], 83927915, [id number] ####[facility] (DEFAULT)[address] [place] [address] 44359 Bili Total 0.5 mg/dL Normal 0.3-1.2 [facility] Comment on above: Performed By: #### 7 069455, [id number], 43925612, [id number] ####[facility] (DEFAULT)[address] [place] [address] 31161 Calcium [Mass/Vol] 8.9 mg/dL Normal 8.9-10.3 [facility] Comment on above: Performed By: #### 7 248168, [id number], 04577696, [id number] ####[facility] (DEFAULT)[address] [place] [address] 71151 Chloride [Moles/Vol] 107 mmol/L Normal 101-111 [facility] Comment on above: Performed By: #### 7 570458, [id number], 18683209, [id number] ####[facility] (DEFAULT)[address] [place] [address] 31587 CO2 [Moles/Vol] 27 mmol/L Normal 21-32 [facility] Comment on above: Performed By: #### 7 940402, [id number], [id number], [id number] ####[facility] (DEFAULT)[address] [place] [address] 90463 Creatinine [Mass/Vol] 0.78 mg/dL Normal 0.60-1.30 [facility] Comment on above: Performed By: #### 7 147074, [id number], 96277750, [id number] ####[facility] (DEFAULT)[address] [place] [address] 47234 Globulin (S) [Mass/Vol] 4.3 g/dL Normal 1.5-4.3 [facility] Comment on above: Performed By: #### 7 342344, [id number], 18214653, [id number] ####[facility] (DEFAULT)[address] [place] [address] 39856 Glucose [Mass/Vol] 114.0 mg/dL Normal 74.0-118.0 [facility] Comment on above: Performed By: #### 7 620956, [id number], 77443035, [id number] ####[facility] (DEFAULT)[address] [place] [address] Osmolality 284 mOsm/L Invalid Interpretation Code [facility] Comment on above: Performed By: #### 7 042492, [id number], 87342736, [id number] ####[facility] (DEFAULT)[address] [place] [address] 33404 Potassium [Moles/Vol] 3.5 mmol/L Low 3.6-5.1 [facility] Comment on above: Performed By: #### 7 173209, [id number], 08513263, [id number] ####[facility] (DEFAULT)[address] [place] [address] 43780 Protein [Mass/Vol] 8.0 g/dL Normal 6.5-8.1 [facility] Comment on above: Performed By: #### 7 303784, [id number], 56569134, [id number] ####[facility] (DEFAULT)[address] [place] [address] Sodium [Moles/Vol] 141.0 mmol/L Normal 136.0-144.0 [facility] Comment on above: Performed By: #### 7 739462, [id number], 13229987, [id number] ####[facility] (DEFAULT)[address] [place] [address] 61051 Urea nitrogen [Mass/Vol] 18 mg/dL Normal 8-26 [facility] Comment on above: Performed By: #### 7 060392, [id number], 60980547, [id number] ####[facility] (DEFAULT)[address] [place] [address] 22719 Urea nitrogen/Creatinine [Mass ratio] 23.0 mg/mg High 4.6-16.2 [facility] Comment on above: Performed By: #### 7 207959, [id number], 80192355, [id number] ####[facility] (DEFAULT)[address] [place] [address] 79349 ED Clinical Summaryon 2022 ED Clinical Summary [facility] - Emergency Department [address] [place] [address] 22715 ED Clinical Summary PERSON INFORMATION Name: TRACEY LAAR Age: 42 Years Sex: FEMALE : 1980 MRN: Acct#: Visit Reason: Abscess; Edema - Leg; ABSCESS-GROIN/LFT THIGH, BILATERAL LEG SWELLING Arrival: 11/20/2022 19:43:37 Discharge: 11/20/2022 21:53:00 LOS: 000 02:10 Check In: 11/20/2022 19:43:37 Checkout:11/20/2022 21:53:00 Address: [address] [place] [address] PCP: Provider, None PROVIDER INFORMATION Provider Role Assigned Unassigned Shandra Can PA-C ED PA 11/20/2022 19:49:39 Ade Coko QC CHEMIST Nurse 11/20/2022 20:16:21 Starla Williamson RN ED Nurse 11/20/2022 21:22:01 VITALS INFORMATION Vital Sign Triage Latest Temperature Tympanic Temperature Temporal Artery Pulse Rate 87 bpm 87 bpm O2 Sat 96 % 96 % Respiratory Rate 18 br/min 18 br/min Blood Pressure /91 mmHg /91 mmHg MEDICAL INFORMATION Medications Given: Medication Dose Route ketorolac 30 mg IV Push morphine (Morphine IV push) 4 mg IV Push cefTRIAXone 2 gm IV Piggyback Allergy Information: Aspartame; aspirin PHYSICIAN DOCUMENTATION DISCHARGE INFORMATION: Discharge Disposition: Home Discharge Location: Home PATIENT EDUCATION INFORMATION Instructions: Tinea Versicolor, Argu-yr-Sblo; Wound Packing; Skin Abscess, Yrmt-yz-Xjhu Follow-Up: With: Address: When: Follow up with primary care provider Within 3 to 5 days DIAGNOSIS: 1:Abscess of groin, right; 2:Abscess of left groin; 3:Tinea versicolor; 4:Elevated BP without diagnosis of hypertension Patient Understands: Yes - Patient/family/caregi sanjana verbalizes understanding of instructions given Comment: Normal [facility] ED Patient Summaryon 023 ED Patient Summary [facility] - Emergency Department [address] [place], [place] [id number] PATIENT DISCHARGE INSTRUCTIONS Patient Information Name: TRACEY LARA Age: 42 Years Date of : 1980 Reason For Visit: Abscess; Edema - Leg; ABSCESS-GROIN/LFT THIGH, BILATERAL LEG SWELLING Arrival Time: 11/20/2022 19:43:37 Primary Care Physician: Provider, None Attending Physician: Jaime Saldaña DO Comment: Visit Diagnosis: Diagnoses This Visit Abscess (435120262) Abscess of groin, right (L02.214) Abscess of left groin (L02.214) Edema - Leg ([id number]) Elevated BP without diagnosis of hypertension (R03.0) Tinea versicolor (B36.0) The Pharmacy at [facility] is open Monday through Monday from 9A to 6P and Monday and Monday from 9A to 5P Prescription Information: If you have been given a prescription for narcotics, seek immediate medical attention if you have any difficulty breathing or any sudden status changes such as confusion and sleepiness. If you or anyone you know is experiencing suicidal thoughts, mental health, alcohol and/or drug addiction problems; contact the [facility] 12/12 Crisis Hotline -Text 4HKDJ ep 184829. If you received any narcotics, sedation, or any other medication that causes drowsiness for the next 24 hours, unless otherwise directed: ? Do not drive a car. ? Do not operate machinery such as power tools, lawn mowers, drills, sewing machines, or stoves ? Avoid alcoholic beverages and drugs for allergies, nerves, or sleep ? Do not make important personal or business decisions or sign any legal documents With: Address: When: Follow up with primary care provider Within 3 to 5 days Medication Information: The exam and treatment you received today in the [facility] Emergency Department were for an urgent problem and are not intended as complete care. It is important for you to follow up with a doctor, nurse practitioner, or physician?s dietetic assistant for ongoing care. If your symptoms become worse or you do not improve as expected and you are unable to reach your usual health care provider, you should return to the Emergency Department, we are available 24 hours a day. For those patients who have received Radiology results, the interpretation of your X-ray as given to you by our Emergency Department physician is only a preliminary report. The Radiologist will review your films and if there is a change in the diagnosis you will be notified by phone. Please make sure you have provided a working phone number so we can reach you if necessary. In the event that you had a lab culture while you were a patient in the Emergency Department, you will be notified by phone if there is a need to change your antibiotic. Please make sure you have provided a working phone number so we can reach you if necessary. [facility] Emergency Department has provided you with a complete list of medications post discharge. Please inform your physician assistant primary care/provider of your visit and for further instruction on these medications. Any specific questions regarding your chronic medications and dosages should be discussed with your primary care physician(s) and/or pharmacist. New Medications [id number], [address] [place], [place] [id number], [phone] ciprofloxacin (Cipro 500 mg oral tablet) 1 tab(s) Oral Every 12 hours scheduled time for 10 Days. Refills: 0. nystatin topical (nystatin 100,000 units/g topical powder) 1 todd Topical 2 times a day for 7 Days. Refills: 0. traMADol (traMADol 50 mg oral tablet) 1 tab(s) Oral Every 4 hours as needed as needed for pain for 3 Days. Refills: 0. Additional medications on your home medication list not specifically addressed. Please contact the ordering physician if you have questions about these medications. furosemide (furosemide 20 mg oral tablet) take 1 tablet by mouth once daily if needed for SEVERE LOWER LEG SWELLING. Visit Information Allergies: Substance Reaction Symptoms Type Comments aspirin Drug Aspartame Food Vital Signs: Vitals and Measurements this Visit (last charted value for your 11/20/2022 visit) Vital Signs This Visit Temperature Temporal: 36.8 DegC Peripheral Pulse Rate: 87 bpm Respiratory Rate: 18 br/min Systolic Blood Pressure: 149 mmHg Diastolic Blood Pressure: 91 mmHg SpO2: 96 % Oxygen Therapy: Room air Measurements This Visit Height/Length Dosin.880 cm Height/Length Estimated: 182.880 cm Weight Dosin.660 kg Weight Estimated: 159.660 kg Problems List: Problem Onset Comments CHF (congestive heart failure) Patient Education Tinea Versicolor Tinea versicolor is a skin infection. It is caused by a type of yeast. It is normal for some yeast to be on your skin, but too much yeast causes this infection. The infection causes a rash of light or d (more content not included)... Normal [facility] Extra Redon 11-20-2022 Tube Collected Yes Invalid Interpretation Code [facility] Comment on above: Performed By: #### 7 [id number], [id number] ####[facility] (DEFAULT)[address] [place] [address] Wound Cultureon 11-20-2022 Wound Culture Heavy growth of Staphylococcus epidermidis and Moderate growth of Corynebacterium species diptheroids No LAURA performed on this organism Gram Negative Cocci 1+ Gram Positive Cocci 1+ Gram Negative Rods 1+ White Blood Cells 2+ Normal [facility] Comment on above: Performed By: #### 6 [id number] ####[facility] (DEFAULT)[address] [place] [address] GLYCOHEMOGLOBIN A1Con 2021 ADA RECOMMENDATION SEE BELOW Normal [facility] Comment on above: Result Comment: ADA RECOMMENDED LIMIT 4.0 - 6.0 ADA THERAPEUTIC TARGET < 7.0 ACTION SUGGESTED > 7.0 Performed By: #### A 1C #### [facility] [address] [place] [address] Dr. Pat Dale Glucose [Mass/Vol] 126 mg/dL Normal [facility] Comment on above: Performed By: #### A 1C #### [facility] [address] [place] [address] Dr. Pat Dale HbA1c (Bld) [Mass fraction] 6.0 % Normal 4.5-6.2 [facility] Comment on above: Performed By: #### A 1C #### [facility] [address] [place] [address] Dr. Pat Dale PROF CHEM 8 (BAS METB)on Anion gap [Moles/Vol] 11.9 mmol/L [facility] Comment on above: Performed By: #### B MP #### [facility] [address] [place] [address] Dr. Pat Dale Calcium [Mass/Vol] 9.5 mg/dL Normal 8.5-10.1 [facility] Comment on above: Performed By: #### B MP #### [facility] [address] [place] [address] Dr. Pat Dale Chloride [Moles/Vol] 104 mmol/L Normal 98-107 [facility] Comment on above: Performed By: #### B MP #### [facility] [address] [place] [address] Dr. Pat Dale CO2 [Moles/Vol] 25.9 mmol/L Normal 21.0-32.0 [facility] Comment on above: Performed By: #### B MP #### [facility] [address] [place] [address] Dr. Pat Dale Creatinine [Mass/Vol] 0.80 mg/dL Normal 0.55-1.02 [facility] Comment on above: Performed By: #### B MP #### [facility] [address] [place] [address] Dr. Pat Dale EGFR-AF BELIZEAN >60 Normal >=60 [facility] Comment on above: Performed By: #### B MP #### [facility] [address] [place] [address] Dr. Pat Dale EGFR-NON AF BELIZEAN >60 Normal >=60 [facility] Comment on above: Performed By: #### B MP #### [facility] [address] [address] [address] Pat Dale Glucose [Mass/Vol] 108 mg/dL Critically high 74-106 [facility] Comment on above: Performed By: #### B MP #### [facility] [address] [place] [address] Dr. Pat Dale Potassium [Moles/Vol] 3.8 mmol/L Normal 3.5-5.1 [facility] Comment on above: Performed By: #### B MP #### [facility] [address] [place] [address] Dr. Pat Dale Sodium [Moles/Vol] 138 mmol/L Normal 136-145 [facility] Comment on above: Performed By: #### B MP #### [facility] [address] [place] [address] Dr. Pat Dale Urea nitrogen [Mass/Vol] 14.0 mg/dL Normal 7.0-18.0 [facility] Comment on above: Performed By: #### B MP #### [facility] [address] [place] [address] Dr. Pat Dale Urea nitrogen/Creatinine [Mass ratio] 17.5 mg/mg [facility] Comment on above: Performed By: #### B MP #### [facility] [address] [place] [address] Dr. Pat Dale CULTURE WOUNDon 02-09-2022 CULTURE WOUND Culture Observations : Light growth of NORMAL SKIN BÁRBARA. Culture Observations: NO GROWTH OF ANAEROBES AT 72 HOURS. Normal [facility] Comment on above: Performed By: #### W OUNDCX #### [facility] [address] [place] [address] Dr. Pat Dale *ANAEROBIC CULTUREon 022 *ANAEROBIC CULTURE Clinical Report: (C) Specimen/Source: DRAINAGE/BOIL Collected: 12/21/2021 09:50 Status: Final Last Updated: 12/24/2021 07:45 (1) No: Do not add to previous draw ISO (Final) Prevotella bivia (Bacteroides) +Beta-Lactamase Positive Result changed by ALLIE on 12/24/2021 07:45. The previous result was: ISO (Final) Prevotella bivia (Bacteroides) Normal [facility] Comment on above: Order Comment: No: D o not add to previous draw Performed By: #### 3 0312 #### [facility] [address] *WOUND CULTUREon 12-21-2021 *WOUND CULTURE Clinical Report: (D) Specimen/Source: WOUND/OTHER Collected: 12/21/2021 09:50 Status: Final Last Updated: 12/22/2021 11:08 GRAM (Final) Moderate Polys Moderate Gram Positive Bacilli Rare Gram Positive Cocci In Pairs ISO (Final) Moderate Growth Skin Bárbara Normal [facility] Comment on above: Performed By: #### 3 [id number] #### [facility] [address] WOUND CULTUREon 08-24-2021 Aerobic Culture Final report Normal [facility] Comment on above: Performed By: #### C XWND #### [facility] [address] [address] [address] Pat Dale Anaerobic Culture Final report Abnormal [facility] Comment on above: Performed By: #### C XWND #### [facility] [address] [address] [address] Pat Dale Result 1 Mixed skin bárbara Normal [facility] Comment on above: Performed By: #### C XWND #### [facility] [address] [address] [address] Pat Dale Result 1 Cutibacterium acnes Abnormal [facility] Comment on above: Result Comment: Ariane longo growth Performed By: #### C XWND #### [facility] [address] [address] [address] Pat Dale Consent for Procedure/Surger yon 02-06-2020 Consent for Procedure/Surgery [id number]:127 Normal [facility] General Surgery Office/Clini c Noteon 02-06-2020 General Surgery Office/Clinic Note Chief Complaint re-evaluate rectal bleeding HPI Staff 40 year old female presents to re-evaluate rectal bleeding. Last evaluation was 10/17/19. She declined to schedule recommended colonoscopy due to COVID consent that was needed. Since last visit she is experiencing an increase in rectal bleeding. She is also experiencing daily nausea and vomiting. Does report blood with emesis. History of Present Illness 40 yo female with h/o bipolar disorder, chronic GERD, fibromyalgia, panic disorder; initially seen 09/2019 for rectal bleeding, wound not agree to COVID testing so colonoscopy was not scheduled; poor historian; she reports persistent rectal bleeding, dark, even without bms; intermittent loose stools with blood; some cramps prior to bms; intermittent N/V; at times with hematemesis; no fevers, no food triggers; no wt loss or wt gain; abdominal operations significant for cholecystectomy, appendectomy and KATHERIN. denies asa or NSAID use, no SBE prophylaxis; no h/o ulcer disease; h/o hemorrhoids, was using hydrocortisone cream; had EGD and colonoscopy [place] [address] Rodriguez, [place]. no fmhx of GI malignancy or IBD. Review of Systems PHQ Score Initial Depression Screen Score: 0 ROS - Provider Constitutional: no fever, no sweats, no weight loss. Eyes: no glasses, no blurred vision, no visual loss. ENMT: no dentures, no hoarseness, no swallowing difficulties, no hearing loss, no ear infection(s), no nose bleeds. Cardiovascular: normal blood pressure, no chest pain, regular heartbeat, no heart murmur. Respiratory: no shortness of breath, no cough, no asthma, no wheezing. Gastrointestinal: no nausea, no vomiting, no diarrhea, no constipation, yes blood in stool, yes change in bowel habits, mild abdominal pain, no hepatitis. Genitourinary: no kidney stones, no urine infection, no dysuria. Musculoskeletal: no pain, no weakness. Skin: no changing moles, no rash, no skin lumps. Neurologic: no seizures, no epilepsy, no headache. Psychiatric: no emotional or psychiatric problem. Heme/Lymph: no bleeding problems, no anemia, no blood clots, no transfusions. Allergy/Immunologic: no swollen lymph nodes/glands, no IV drug abuse. Other: Additional ROS info: Except as noted in the above Review of Systems and in the History of Present Illness, all other systems have been reviewed and are negative or noncontributory. Physical Exam Vitals & Measurements T: 36.7 ?C (Tympanic) HR: 72(Peripheral) RR: 16 BP: 122/86 HT: 181.6 cm HT: 181.6 cm WT: 143.7 kg WT: 143.7 kg BMI: 43.57 HEENT: normal conjunctiva, sclera clear, no scleral icterus, EOM intact, PERRLA. oral mucosa moist without lesions Neck: trachea midline , no mass, symmetric, no thyromegaly or nodules. no adenopathy Respiratory: lungs CTA, respirations non labored. Cardiovascular: regular rate and rhythm, no murmur, , no pedal edema or varicosities. Gastrointestinal: obese, soft, non distended, mild tenderness,epigastriu m and mid abdomin; no masses, no palpable hernias, diastasis recti yes, no hepatosplenomegaly. normal bs Lymphatic: no cervical adenopathy, no axillary adenopathy, Musculoskeletal: normalgait, digits and nails without infection, nodes, cyanosis, clubbing. Skin: no rashes, no lesions, no ulcers, no subcutaneous nodules, induration. Psychiatric/Neuro: oriented to time, place, person, judgement normal, affect anxious, insight intact, no focal deficits. Tests: review of old records completed, Discussed surgical options, risks, and possible complications with patient. Assessment/Plan 1. Rectal bleeding (K62.5: Hemorrhage of anus and rectum) plan EGD and colonoscopy with anesthesia for further evaluation, informed consent obtained. patient understands the risks associated with COVID-19, and the need for preoperative testing with self-isolation until the procedure. 2. Hematemesis with nausea (K92.0: Hematemesis) see # 1 3. Chronic GERD (K21.9: Gastro-esophageal reflux disease without esophagitis) see # 1 4. Change in bowel habits (R19.4: Change in bowel habit) see # 1 5. Nausea and vomiting (R11.2: Nausea with vomiting, unspecified) see # 1 6. BMI 40.0-44.9, adult (Z68.41: Body mass index (BMI) 40.0-44.9, adult) recommend diet and exercise. Follow-up No qualifying data available Problem List/Past Medical History Ongoing Asthma Bipolar mixed affective disorder, moderate BMI 40.0-44.9, adult Cannabis abuse with physiological dependence Change in bowel habits Chronic GERD Chronic post-traumatic stress disorder (PTSD) Chronic venous insufficiency Fibromyalgia Glucose intolerance (impaired glucose tolerance) Hematemesis with nausea Lupus arthritis MRSA carrier Nausea and vomiting Panic disorder with agoraphobia Rectal bleeding Vitamin D deficiency Historical No qualifying data Procedure/Surgical History Balloon sinuplasty (12/29/2016), Nasal septoplasty (12/29/2016), Appendectomy (03/22/2008), Cholecystectomy (05/22/2002), Hist (more content not included)... Normal [facility] Comment on above: Result Comment: Elec tronically Signed By: KAI FAY, Jaime Leavitt\Date and Time Signed: 02/06/20 16:00 EDT Ambulatory Clinical Summaryo n 02-04-2020 Ambulatory Clinical Summary {[id number]}CD:[id number] Normal [facility] Facesheeton 11-19-2019 Facesheet [id number]:127 Normal [facility] Ambulatory Clinical Summaryo n 10-23-2019 Ambulatory Clinical Summary {[id number]}CD:[id number] [facility] GENETICS MISCELLANEOUS DNA T ESTon 07-27-2017 GENETICS RESULT SEE ELECTRONIC REPOR T IN EPIC OR CALL GENETICS AT [phone] Normal [facility] Comment on above: Result Comment: [facility],[address] [place], [place] [address] Performed By: #### G MISC1 ####[facility] [address] TEST : Draw 1 10 ml purple (EDTA) for genetic testing for cancer susceptibility to be Normal [facility] Comment on above: Result Comment: sent to [facility] Performed By: #### G MISC1 ####[facility] [address] Encounters Encounter Date Encounter Type Care Provider Facility Start: 09-20-2023 End: 09-20-2023 ambulatory BETI [facility] Start: 09-01-2023 End: 09-01-2023 Emergency department patient visit ROBE CHRISTOPHER [facility] Start: 06-16-2023 End: 06-16-2023 Emergency department patient visit SUSANNE STAPLETON [facility] Start: 06-13-2023 End: 06-13-2023 Emergency department patient visit NO PCP NO PCP [facility] Start: 02-22-2023 End: 02-22-2023 Emergency department patient visit Misbah Murray Facility:[facility] Start: 01-24-2023 End: 01-24-2023 Emergency department patient visit [facility] Start: 12-07-2022 End: 12-07-2022 Emergency department patient visit Elias Huff Facility:[facility] Start: 12-03-2022 End: 12-03-2022 Emergency department patient visit [facility] Start: 11-20-2022 End: 11-20-2022 Emergency department patient visit None Provider Facility:[facility] Start: 05-23-2022 End: 05-23-2022 ambulatory DELFIN WALTERS Facility:[facility] Start: 02-22-2022 End: 02-23-2022 ambulatory DELFIN WALTERS Facility:[facility] Start: 02-09-2022 End: 02-09-2022 ambulatory DELFIN WALTERS Facility:[facility] Start: 12-21-2021 End: 12-21-2021 Emergency department patient visit RODDY POWELL Facility:[facility] Start: 08-18-2021 End: 08-18-2021 ambulatory DELFIN WALTERS Facility: Start: 07-27-2017 End: 07-28-2017 Ambulatory CONI RUFFIN NATUri ZACH [facility] Payers Date Payer Category Payer Unknown [id number] 2.16.8 [id number] 1980 Unknown [id number] 2.16.84 [id number] 1980 Unknown [id number] 2.16.84 [id number] 1980 Unknown [id number] 2.16.84 [id number] 1980 Unknown [id number] 2.16.84 [id number] 1980 Unknown [id number] 2.16.8 [id number] 1980 Unknown [id number] 2.16.8 [id number] 1980 Unknown [id number] 2.16.8 [id number] 1980 Unknown [id number] 2.16.8 [id number] 1980 Unknown [id number] 2.16.8 [id number] 1980 Unknown [id number] 2.16.8 [id number] 1980 Unknown [id number] 2.16.8 [id number] 1980 Unknown [id number] 2.16.8 [id number] 1959 Unknown [id number] Progress note 09-20-2023 Note Date & Type Note Facility 09-20-2023 Note Cardiology Clinic No te Chief Complaint: lower extremity edema HPI: Tracey Lara is a 43 y.o. female With a past medical history including hypertension heart failure preserved ejection fraction presents to cardiology to reestablish care. Patient states that she was previously diagnosed with heart failure with preserved ejection fraction, which was well-controlled with Lasix. She ran out of Lasix approximately 1 week ago, and since that time, she has noticed lower extremity edema. She endorses some mild shortness of breath. She denies any additional complaints or concerns. She denies any orthopnea or paroxysmal nocturnal dyspnea. She denies any chest pain. . Patient denies any previous history of CVA, PVD, DM, Depressed LVEF, and CAD. Cardiology ROS: GENERAL: Denies fever, chills, night sweats, weight loss. HEENT: Denies changes in vision, photophobia, changes in hearing, epistaxis, oral bleeding. CARDIOVASCULAR: Denies chest pain, exertional dyspnea, orthopnea/PND, lower extremity edema, palpitations, lightheadedness/dizziness. RESPIRATORY: Denies SOB, coughing, wheezing GI: Denies abdominal pain, nausea/vomiting, heartburn, melena/hematochezia. RENAL: Denies dysuria, hematuria, flank pain. MSK: Denies muscle weakness/pain, arthralgias/joint pain. NEUROLOGIC: Denies LOC, weakness, numbness, headaches. SKIN: Denies abnormal rashes or bleeding. PSYCH: Denies significant anxiety, depression, sleep disturbances. Past Medical History She has a past medical history of ADHD, Fibromyalgia, Hypertension, Lupus (CMS/HCC), and Obesity. Surgical History She has a past surgical history that includes Cholecystectomy; Hysterectomy; and Appendectomy. Social History She reports that she has been smoking cigarettes. She has been smoking an average of .5 packs per day. She has never used smokeless tobacco. She reports current alcohol use. She reports current drug use. Drug: Marijuana. Family History No family history on file. Medications Current Outpatient Medications on File Prior to Visit Medication Sig Dispense Refill ketorolac (Toradol) 10 mg tablet take 1 tablet by mouth every 6 hours once daily if needed for pain No current facility-administered medications on file prior to visit. Allergies Aspirin, Fluoxetine, Gabapentin, Sertraline, Sulfamethoxazole, and Penicillins Physical Exam VITAL SIGNS: BP (!) 152/94 (BP Location: Right wrist, Patient Position: Sitting) Pulse 96 Ht 1.829 m (6') Wt (!) 171 kg (377 lb) SpO2 98% BMI 51.13 kg/m??? Constitutional: Well developed, Well nourished, No acute distress, Non-toxic appearance. HENT: Normocephalic, Atraumatic, Bilateral external ears have normal appearance, Nose appears normal, nares are patent. Eyes: PERRLA, EOMI, Conjunctiva normal, No discharge. Neck: Normal range of motion, No tenderness, Supple, No stridor. No cervical lymphadenopathy noted. Cardiovascular: Normal heart rate, Normal rhythm, No murmurs, No rubs, No gallops. Thorax & Lungs: Normal breath sounds, No respiratory distress, No wheezing, No chest tenderness to palpation. Abdomen: Bowel sounds normal, Soft, Nontender, No masses, No pulsatile masses. Skin: Warm, Dry, No erythema, No rash. Back: No tenderness, No CVA tenderness. Extremities: Intact distal pulses, No edema, No tenderness, No cyanosis, No clubbing. Musculoskeletal: Grossly normal strength in extremities Neurologic: Alert & oriented x 3, no gross focal neurological deficits Psychiatric: Affect normal, Judgment normal, Mood normal. EKG results: No results found for this or any previous visit (from the past 4464 hour(s)). Echo results: No echocardiogram results found for the past 12 months Radiology: No image results found. Impression: -Heart failure with preserved ejection fraction, appears mildly hypervolemic -Dyspnea -Lower extremity edema Plan: -Will obtain echocardiogram to assess LVEF, regional wall motion, and valvular function. -Will represcribe Lasix 20 mg daily for HFpEF. Will check BMP in 1 week, after restarting Lasix. -Optimize medical management -Aggressive risk factor modification -Plan of care discussed with patient. All questions were answered. Patient voices understanding and is agreeable with current plan. -Patient was educated on red flag symptoms. Strict return precautions were provided. Patient verbalizes understanding -Follow-up in cardiology clinic in 6-8 weeks, or sooner as needed Thank you for allowing us to participate in the care of your patient. Please do not hesitate to contact cardiology with any questions or concerns. Beti Echavarria MD Interventional Cardiology [facility] Clinical Note 02-22-2023 Note Date & Type Note Facility 02-22-2023 Note Education Materials Cardiovascular Hypertension, Adult Your blood pressure was noted to be elevated here in the emergency room. Monitor your blood pressure and follow-up with your primary care physician to review those readings. Return to the emergency department for any worsening symptoms. Hypertension is another name for high blood pressure. High blood pressure forces your heart to work harder to pump blood. This can cause problems over time. There are two numbers in a blood pressure reading. There is a top number (systolic) over a bottom number (diastolic). It is best to have a blood pressure that is below 120/80. What are the causes? The cause of this condition is not known. Some other conditions can lead to high blood pressure. What increases the risk? Some lifestyle factors can make you more likely to develop high blood pressure: ? Smoking. ? Not getting enough exercise or physical activity. ? Being overweight. ? Having too much fat, sugar, calories, or salt (sodium) in your diet. ? Drinking too much alcohol. Other risk factors include: ? Having any of these conditions: ? Heart disease. ? Diabetes. ? High cholesterol. ? Kidney disease. ? Obstructive sleep apnea. ? Having a family history of high blood pressure and high cholesterol. ? Age. The risk increases with age. ? Stress. What are the signs or symptoms? High blood pressure may not cause symptoms. Very high blood pressure (hypertensive crisis) may cause: ? Headache. ? Fast or uneven heartbeats (palpitations). ? Shortness of breath. ? Nosebleed. ? Vomiting or feeling like you may vomit (nauseous). ? Changes in how you see. ? Very bad chest pain. ? Feeling dizzy. ? Seizures. How is this treated? ? This condition is treated by making healthy lifestyle changes, such as: ? Eating healthy foods. ? Exercising more. ? Drinking less alcohol. ? Your doctor may prescribe medicine if lifestyle changes do not help enough and if: ? Your top number is above 130. ? Your bottom number is above 80. ? Your personal target blood pressure may vary. Follow these instructions at home: Eating and drinking ? If told, follow the DASH eating plan. To follow this plan: ? Fill one half of your plate at each meal with fruits and vegetables. ? Fill one fourth of your plate at each meal with whole grains. Whole grains include whole-wheat pasta, brown rice, and whole-grain bread. ? Eat or drink low-fat dairy products, such as skim milk or low-fat yogurt. ? Fill one fourth of your plate at each meal with low-fat (lean) proteins. Low-fat proteins include fish, chicken without skin, eggs, beans, and tofu. ? Avoid fatty meat, cured and processed meat, or chicken with skin. ? Avoid pre-made or processed food. ? Limit the amount of salt in your diet to less than 1,500 mg each day. ? Do not drink alcohol if: ? Your doctor tells you not to drink. ? You are , may be , or are planning to become . ? If you drink alcohol: ? Limit how much you have to: ? 0?1 drink a day for women. ? 0?2 drinks a day for men. ? Know how much alcohol is in your drink. In the [place] one drink equals one 12 oz bottle of beer (355 mL), one 5 oz glass of wine (148 mL), or one 1? oz glass of hard liquor (44 mL). Lifestyle ? Work with your doctor to stay at a healthy weight or to lose weight. Ask your doctor what the best weight is for you. ? Get at least 30 minutes of exercise that causes your heart to beat faster (aerobic exercise) most days of the week. This may include walking, swimming, or biking. ? Get at least 30 minutes of exercise that strengthens your muscles (resistance exercise) at least 3 days a week. This may include lifting weights or doing Pilates. ? Do not smoke or use any products that contain nicotine or tobacco. If you need help quitting, ask your doctor. ? Check your blood pressure at home as told by your doctor. ? Keep all follow-up visits. Medicines ? Take rmhy-jwz-clslcqu and prescription medicines only as told by your doctor. Follow directions carefully. ? Do not skip doses of blood pressure medicine. The medicine does not work as well if you skip doses. Skipping doses also puts you at risk for problems. ? Ask your doctor about side effects or reactions to medicines that you should watch for. Contact a doctor if: ? You think you are having a reaction to the medicine you are taking. ? You have headaches that keep coming back. ? You feel dizzy. ? You have swelling in your ankles. ? You have trouble with your vision. Get help right away if: ? You get a very bad headache. ? You start to feel mixed up (confused). ? You feel weak or numb. ? You feel faint. ? You have very bad pain in your: ? Chest. ? Belly (abdomen). ? You vomit more than once. ? You have trouble breathing. These symptoms may be an emergency. Get help right (more content not included)... [facility] Clinical Note 12-07-2022 Note Date & Type Note Facility 12-07-2022 Note Education Materials Infectious Disease Skin Abscess A skin abscess is an infected area of your skin that contains pus and other material. An abscess can happen in any part of your body. Some abscesses break open (rupture) on their own. Most continue to get worse unless they are treated. The infection can spread deeper into the body and into your blood, which can make you feel sick. A skin abscess is caused by germs that enter the skin through a cut or scrape. It can also be caused by blocked oil and sweat glands or infected hair follicles. This condition is usually treated by: ? Draining the pus. ? Taking antibiotic medicines. ? Placing a warm, wet washcloth over the abscess. Follow these instructions at home: Medicines ? Take uorv-jve-kqviivc and prescription medicines only as told by your doctor. ? If you were prescribed an antibiotic medicine, take it as told by your doctor. Do not stop taking the antibiotic even if you start to feel better. Abscess care ? If you have an abscess that has not drained, place a warm, clean, wet washcloth over the abscess several times a day. Do this as told by your doctor. ? Follow instructions from your doctor about how to take care of your abscess. Make sure you: ? Cover the abscess with a bandage (dressing). ? Change your bandage or gauze as told by your doctor. ? Wash your hands with soap and water before you change the bandage or gauze. If you cannot use soap and water, use hand configuration specialist. ? Check your abscess every day for signs that the infection is getting worse. Check for: ? More redness, swelling, or pain. ? More fluid or blood. ? Warmth. ? More pus or a bad smell. General instructions ? To avoid spreading the infection: ? Do not share personal care items, towels, or hot tubs with others. ? Avoid making lkul-dk-kfdo contact with other people. ? Keep all follow-up visits as told by your doctor. This is important. Contact a doctor if: ? You have more redness, swelling, or pain around your abscess. ? You have more fluid or blood coming from your abscess. ? Your abscess feels warm when you touch it. ? You have more pus or a bad smell coming from your abscess. ? Your muscles ache. ? You feel sick. Get help right away if: ? You have very bad (severe) pain. ? You see red streaks on your skin spreading away from the abscess. ? You see redness that spreads quickly. ? You have a fever or chills. Summary ? A skin abscess is an infected area of your skin that contains pus and other material. ? The abscess is caused by germs that enter the skin through a cut or scrape. It can also be caused by blocked oil and sweat glands or infected hair follicles. ? Follow your doctor's instructions on caring for your abscess, taking medicines, preventing infections, and keeping follow-up visits. This information is not intended to replace advice given to you by your health care provider. Make sure you discuss any questions you have with your health care provider. Document Revised: 02/14/2022 Document Reviewed: 02/14/2022 [employer] Patient Education ? 2022 [employer]. Orthopedics Acute Back Pain, Adult Acute back pain is sudden and usually short-lived. It is often caused by an injury to the muscles and tissues in the back. The injury may result from: ? A muscle, tendon, or ligament getting overstretched or torn. Ligaments are tissues that connect bones to each other. Lifting something improperly can cause a back strain. ? Wear and tear (degeneration) of the spinal disks. Spinal disks are circular tissue that provide cushioning between the bones of the spine (vertebrae). ? Twisting motions, such as while playing sports or doing yard work. ? A hit to the back. ? Arthritis. You may have a physical exam, lab tests, and imaging tests to find the cause of your pain. Acute back pain usually goes away with rest and home care. Follow these instructions at home: Managing pain, stiffness, and swelling ? Take keis-pyq-fawcqdt and prescription medicines only as told by your health care provider. Treatment may include medicines for pain and inflammation that are taken by mouth or applied to the skin, or muscle relaxants. ? Your health care provider may recommend applying ice during the first 24?48 hours after your pain starts. To do this: ? Put ice in a plastic bag. ? Place a towel between your skin and the bag. ? Leave the ice on for 20 minutes, 2?3 times a day. ? Remove the ice if your skin turns bright red. This is very important. If you cannot feel pain, heat, or cold, you have a greater risk of damage to the area. ? If directed, apply heat to the affected area as often as told by your health care provider. Use the heat source that your health care provider recommends, such as a moist heat pack or a heating pad. ? Place a towel between your skin and the heat so (more content not included)... [facility] Clinical Note 12-07-2022 Note Date & Type Note Facility 12-07-[address] Hfuf t o bedside for I&D of right buttocks abscess. Chux pad placed under patient prior to procedure. Patient positioned on right side and assisted with holding left buttocks during procedure. Patient numbed by Dr. Huff with mixture of 2% lidocaine and sodium bicarb. Patient screaming during lidocaine injection. Patient given a moment for numbing medication to take effect. Patient tolerated the remaining procedure well. Reports improvement in pain and less pressure noted in the area. Privacy maintained. Gauze dressing secured with paper tape. Wound care communicated to patient by Dr. Huff. [facility] Clinical Note 11-20-2022 Note Date & Type Note Facility 11-20-2022 Note Education Materials Dermatology Tinea Versicolor Tinea versicolor is a skin infection. It is caused by a type of yeast. It is normal for some yeast to be on your skin, but too much yeast causes this infection. The infection causes a rash of light or dark patches on your skin. The rash is most common on the chest, back, neck, or upper arms. The infection usually does not cause other problems. If it is treated, it will probably go away in a few weeks. The infection cannot be spread from one person to another (is notcontagious). What are the causes? This condition is caused by a certain type of yeast that starts to grow too much on your skin. What increases the risk? ? Heat and humidity. ? Sweating too much. ? Hormone changes. This may happen when taking control pills. ? Oily skin. ? A weak disease-fighting system (immunesystem). What are the signs or symptoms? ? A rash of light or dark patches on your skin. The rash may have: ? Patches of coates or pink spots (on light skin). ? Patches of white or brown spots (on dark skin). ? Patches of skin that do not coates. ? Well-marked edges. ? Scales. ? Mild itching. There may also be no itching. How is this treated? Treatment for this condition may include: ? Dandruff shampoo. The shampoo may be used on the affected skin during showers or baths. ? Lpag-xlh-gmfyund medicated skin cream, lotion, or soaps. ? Prescription antifungal medicine. This may include cream or pills. ? Medicine to help your itching. Follow these instructions at home: ? Use fbmr-axn-wgqtzup and prescription medicines only as told by your doctor. ? Wash your skin with dandruff shampoo as told by your doctor. ? Do not scratch your skin in the rash area. ? Avoid places that are hot and humid. ? Do not use tanning booths. ? Try to avoid sweating a lot. Contact a doctor if: ? Your symptoms get worse. ? You have a fever. ? You have signs of infection such as: ? Redness, swelling, or pain in the rash area. ? Warmth coming from your rash. ? Fluid or blood coming from your rash. ? Pus or a bad smell coming from your rash. ? Your rash comes back (recurs) after treatment. ? Your rash does not improve with treatment. ? Your rash spreads to other parts of the body. Summary ? Tinea versicolor is a skin infection. It causes a rash of light or dark patches on your skin. ? The rash is most common on the chest, back, neck, or upper arms. This infection usually does not cause other problems. ? Use lysb-wud-wkxbfwl and prescription medicines only as told by your doctor. ? If the infection is treated, it will probably go away in a few weeks. This information is not intended to replace advice given to you by your health care provider. Make sure you discuss any questions you have with your health care provider. Document Revised: 07/27/2021 Document Reviewed: 07/27/2021 [employer] Patient Education ? 2022 [employer] Wound Packing Wound packing usually involves placing a moistened packing material into your wound and then covering it with an outer bandage (dressing). This helps support the healing of deep tissue and tissue under the skin. It also helps prevent bleeding, infection, and further injury. Wounds are packed until deep tissues heal. The time it takes for this to happen is different for everyone. Your health care provider will show you how to pack and dress your wound. Using gloves and a clean technique is important to avoid spreading germs into your wound. Supplies needed: ? Soap and water. ? Disposable gloves. ? Cleansing or wetting solution, such as saline, germ-free (sterile) water, or an antiseptic solution. ? Clean bowl. ? Clean packing material, such as gauze, gauze sponges, or rolled gauze. ? Clean paper towels. ? Outer dressing. This includes the cover dressing and tape, or a dressing with an adhesive border. ? Cotton-tipped swabs. ? Small plastic bag for trash. How to pack your wound Follow your health care provider's instructions on how often you need to change dressings and pack your wound. You will likely be asked to change your dressings 1 to 2 times a day. Preparing to change the wound packing If needed, take pain medicine 30 minutes before you pack your wound as told by your health care provider. Preparing the new packing material 1. Clean and disinfect your work surface or countertop. 2. Set a plastic bag on or near your work surface. 3. Wash your hands with soap and water for at least 20 seconds before you change the dressing. If soap and water are not available, use hand configuration specialist. 4. Put a clean paper towel on the counter. 5. Put a clean bowl on the towel. Only touch the outside of the bowl when handling it. 6. Pour the cleansing or wetting solution that your health care provider tells you to use into the bowl. 7. Select and cut your packing material to fit the size of (more content not included)... [facility] Summary Purpose Family History No Family History Records FoundNo Family History Records FoundNo Family History Records FoundNo Family History Records FoundNo Family History Records FoundNo Family History Records FoundNo Family History Records FoundNo Family History Records FoundNo Family History Records Found Advance Directives No Advanced Directives Records FoundNo Advanced Directives Records FoundNo Advanced Directives Records FoundNo Advanced Directives Records FoundNo Advanced Directives Records FoundNo Advanced Directives Records FoundNo Advanced Directives Records FoundNo Advanced Directives Records FoundNo Advanced Directives Records Found Additional Source Comments INFORMATION SOURCE (unrecogn ized section and content) DATE CREATED AUTHOR 11/10/2017 [facility] DATE CREATED AUTHOR AUTHOR'S ORGANIZ ATION 10/15/2020 [facility] DATE CREATED AUTHOR AUTHOR'S ORGANIZ ATION 12/29/2021 [facility] DATE CREATED AUTHOR AUTHOR'S ORGANIZ ATION 05/24/2022 [facility] DATE CREATED AUTHOR AUTHOR'S ORGANIZ ATION 01/24/2023 [facility] DATE CREATED AUTHOR AUTHOR'S ORGANIZ ATION 03/03/2023 [facility] DATE CREATED AUTHOR AUTHOR'S ORGANIZ ATION 06/16/2023 [facility] DATE CREATED AUTHOR AUTHOR'S ORGANIZ ATION 09/02/2023 [facility] DATE CREATED AUTHOR AUTHOR'S ORGANIZ ATION 10/07/2023 [facility] FOR RECORDS PERTAINING TO PATIENTS WHO ARE OR HAVE BEEN ENROLLED IN A CHEMICAL DEPENDENCY/SUBSTANCEABUSE PROGRAM, SOME INFORMATION MAY BE OMITTED. This clinical summary was aggregated from multiple sources. Caution should be exercised in using it in the provision of clinical care. This summary normalizes information from multiple sources, and as a consequence, information in this document may materially change the coding, format and clinical context of patient data. In addition, data may be omitted in some cases. CLINICAL DECISIONS SHOULD BE BASED ON THE PRIMARY CLINICAL RECORDS. [facility]. provides no warranty or guarantee of the accuracy or completeness of information in this document.
--- NOTE | 2023-11-10 08:01 | MM_ITS ---
Patient Name: GONZALO LARA MR#: [id number] : 1980 Exam Date: 11/10/2023 Ordering Doctor: Dinorah Florez RADIOLOGY REPORT PROCEDURE: MM TOMOSYNTHESIS DIAGNOSTIC BI COMPARISON: MG MAMM PABLO DIAG W CAD, 09/08/2017. INDICATIONS: Abnormal Mammogram, Breast Pain In Female Calculator Name NCI Breast Cancer Risk Assessment Tool 5 Year Breast Cancer Risk 1.50% Lifetime Breast Cancer Risk 12.40% Personal Breast Cancer No Personal Ovarian Cancer Yes, Ovarian,Uterine,cervical- Treatments - hysterectomy and chemo Family Cancers Aunt-paternal with breast cancer at age ~35; Aunt-paternal with breast cancer at age ~38; Aunt-paternal with breast cancer at age ~40; Aunt-paternal with breast cancer at age ~37; Grandmother-paternal with breast cancer at age ~40; Grandmother-paternal with colon, uterine cancer at age ~40; Aunt-paternal with colon, uterine cancer at age 26; Grandfather-paternal with bladder/lymphoma/brain cancer at age 56. LOCATION: [facility] BREAST COMPOSITION: There are scattered areas of fibroglandular density. FINDINGS: DIAGNOSTIC CATEGORY 2--BENIGN FINDING. NO CHANGE FROM COMPARISON. Scattered benign-appearing nodules are present. Scattered benign-appearing calcifications are present. Scattered benign-appearing lymph nodes are present. RIGHT BREAST: No significant suspicious finding. LEFT BREAST: No significant suspicious finding. RECOMMENDATIONS: ROUTINE MAMMOGRAM AND CLINICAL EVALUATION IN 12 MONTHS. PLEASE NOTE: A NORMAL MAMMOGRAM DOES NOT EXCLUDE THE POSSIBILITY OF BREAST CANCER. A CLINICALLY SUSPICIOUS PALPABLE LUMP SHOULD BE BIOPSIED. Dictated by: Henrique Buenrostro MD on 11/10/2023 at 10:54 Approved by: Henrique Buenrostro MD on 11/10/2023 at 10:59
== END 2023-11-10 07:54 | disposition home or self-care (01) ==
LOC: MAMMO 07:53
PROVIDERS: PCP Nurse Practitioner; Visit Provider Nurse Practitioner
DX: R92.8 Other abnormal and inconclusive findings on diagnostic imaging of breast (principal); N64.4 Mastodynia; Z80.3 Family history of malignant neoplasm of breast; Z80.0 Family history of malignant neoplasm of digestive organs; Z80.8 Family history of malignant neoplasm of other organs or systems; Z80.52 Family history of malignant neoplasm of bladder; Z80.7 Family history of other malignant neoplasms of lymphoid, hematopoietic and related tissues
CPT/HCPCS: 76642; 77066; G0279

== ENCOUNTER 2023-11-30 08:34 | Outpatient (OUT) | payer OTHER, SELFPAY | END 2023-11-30 08:35 | disposition home or self-care (01) | LOC: CARD 08:34 | PROVIDERS: PCP Nurse Practitioner; Visit Provider Internal Medicine Cardiovascular Disease | DX: R06.02 Shortness of breath (principal); R07.9 Chest pain, unspecified; R60.0 Localized edema ==

== ENCOUNTER 2023-11-30 08:43 | Outpatient (OUT) | payer OTHER, SELFPAY ==
[2023-11-30 09:17] LABS: Hematocrit 45.7 % (36.0-48.0); Hemoglobin 14.5 g/dL (12.0-16.0); Mean Corpuscular HGB Conc 31.7 g/dL (29.9-35.2); Mean Corpuscular Hemoglobin 30.6 pg (26.7-34.0); Mean Corpuscular Volume 96.4 fL (81.0-99.0); Mean Platelet Volume 10.8 fL (9.5-13.5); Platelet Count 247 10^3/uL (150-450); Red Blood Count 4.74 10^6/uL (4.20-5.40); Red Cell Distribution Width 14.3 % (11.0-15.0)
[2023-11-30 10:54] LABS: Alanine Aminotransferase 37 U/L (14-59); Albumin Globulin Ratio 0.6; Albumin Level 3.1 g/dL (3.4-5.0); Alkaline Phosphatase 114 U/L (46-116); Anion Gap 10.4; Aspartate Amino Transferase 18 U/L (15-37); BUN Creatinine Ratio 18.2; Bilirubin Total 0.3 mg/dL (0.2-1.0); Calcium 9.1 mg/dL (8.5-10.1); Carbon Dioxide 30.4 mmol/L (21.0-32.0); Chloride 102 mmol/L (98-107); Chol HDL Ratio 3.7; Cholesterol 163 mg/dL (<=200); Estimated GFR (African America >60 (>=60); Estimated GFR (Non-African Ame >60 (>=60); Globulin 4.9 g/dL; Glucose 158 mg/dL (74-106); HDL Cholesterol 44 mg/dL (40-60); Potassium 3.8 mmol/L (3.5-5.1); Sodium 139 mmol/L (136-145); Triglycerides 248 mg/dL (<=150); VLDL CHOLESTEROL 49.6 mg/dL
[2023-11-30 11:20] LABS: Estimated Average Glucose 148 mg/dL; Glycohemoglobin A1C 6.8 % (4.5-6.2)
== END 2023-11-30 08:44 | disposition home or self-care (01) ==
LOC: LAB 08:44
PROVIDERS: PCP Nurse Practitioner; Visit Provider Nurse Practitioner
DX: I50.32 Chronic diastolic (congestive) heart failure (principal); E11.9 Type 2 diabetes mellitus without complications
CPT/HCPCS: 36415; 80053; 80061; 83036; 83880; 85027

== ENCOUNTER 2023-11-30 12:25 | Outpatient (REF) | payer OTHER, SELFPAY | END 2023-11-30 12:26 | disposition home or self-care (01) | LOC: LAB 12:25 | PROVIDERS: PCP Nurse Practitioner; Visit Provider Internal Medicine Cardiovascular Disease | DX: I50.32 Chronic diastolic (congestive) heart failure (principal) | CPT/HCPCS: 36415; 83880 ==

== ENCOUNTER 2023-12-05 10:26 | Outpatient (OUT) | payer OTHER, SELFPAY ==
--- OUTSIDE RECORDS SUMMARY | 2023-12-05 10:38 | XMS_ITS | CCD ---
Author Organization [facility] Care Team Providers Care Manager Costing Name Role Phone CONI SERRANO Unavailable Unava ilable CALLIF-FONTANA, CARLITOS Unavailable Unavailable NO FAMILY DOCTOR Unavailable Unavailable RODDY POWELL Attending Unavailable RODDY POWELL Admitting Unavailable SELF, REFERRED Referring Unavailable SELF, REFERRED Primary Care Unavailable AICHHOLZ, STRIPPER APPRENTICE EMMIE Admitting Unavailable AICHHOLZ, STRIPPER APPRENTICE EMMIE Attending Unavailable AICHHOLZ, STRIPPER APPRENTICE EMMIE Primary Care Unavailable AICHHOLZ, STRIPPER APPRENTICE EMMIE Consulting Unavailable AICHHOLZ, STRIPPER APPRENTICE EMMIE Admitting Unavailable AICHHOLZ, STRIPPER APPRENTICE EMMIE Attending Unavailable AICHHOLZ, STRIPPER APPRENTICE EMMIE Primary Care Unavailable AICHHOLZ, STRIPPER APPRENTICE EMMIE Consulting Unavailable AICHHOLZ, STRIPPER APPRENTICE EMMIE Admitting Unavailable AICHHOLZ, STRIPPER APPRENTICE EMMIE Attending Unavailable AICHHOLZ, STRIPPER APPRENTICE EMMIE Primary Care Unavailable AICHHOLZ, STRIPPER APPRENTICE EMMIE Consulting Unavailable AICHHOLZ, STRIPPER APPRENTICE EMMIE Primary Care Unavailable KENDALL MOMIN Admitting Unavailable KENDALL MOMIN Attending Unavailable DR VLADISLAV ÁLVAREZ Consulting Unavailable KVNG ESPOSITO Attending Unavailable [facility] [place] Primary Care Unavailable KVNG ESPOSITO Attending Unavailable [facility], [facility] Primary Care Unavailable Misbah Murray Attending Unavailable Misbah Murray Admitting Unavailable Provider, None Primary Care Unavailable Le, Elias K Attending Unavailable Daria, Elias K Admitting Unavailable Provider, Unlisted Primary Care Unavailable Provider, None Primary Care Unavailable Jaime Saldaña Attending Unavailab Jaime Lea Admitting Unavailab le NO PCP, NO PCP Primary Care Unavailable SUSANNE STAPLETON Attending Unavailable [facility], [facility] Primary Care Unavailable [facility], [facility] Primary Care Unavailable HEENA BLANKENSHIP Attending Unavailable BETI ECHAVARRIA Attending Unavailable Allergies Allergy Classification Reported Allergen(s) Allergy Type Date of Onset Reaction(s) Facility (2 sources) Aspartame; Translations: [Aspartame] Drug Allergy 10-03-19 14 [facility] Repository (3 sources) Aspirin; Translations: [aspirin] Drug Allergy 01-18-20 12 [facility] Repository (1 source) Azithromycin Drug Allergy 10-03-19 14 [facility] Repository (2 sources) cyclobenzaprine; Translations: [CYCLOBENZAPRINE] Drug Allergy 10-03-19 14 [facility] Repository (1 source) oxaprozin Drug Allergy 10-03-19 14 [facility] Repository (4 sources) Penicillins; Translations: [PENICILLINS] Drug allergy (disorder) 10-03-19 14 [facility] Repository (1 source) Saccharin Drug Allergy 10-03-19 14 [facility] Repository (2 sources) Sertraline Drug Allergy 10-03-19 14 [facility] Repository (1 source) Sulfamethoxazole / Trimethoprim Drug Allergy 10-03-19 14 [facility] Repository (2 sources) Sulfonamides (Antibiotic) Drug allergy (disorder) 10-03-19 14 [facility] Repository (1 source) Aspartame Drug Allergy 08-15-19 15 [facility] Repository (1 source) Aspirin Drug Allergy 08-15-19 15 [facility] Repository (1 source) Corticosteroids Drug allergy (disorder) 08-19-19 15 [facility] Repository (2 sources) gabapentin; Translations: [GABAPENTIN] Drug Allergy 10-31-19 15 [facility] Repository (1 source) Latex Drug allergy (disorder) 08-15-19 15 [facility] Repository (1 source) Saccharin Drug Allergy 08-12-19 15 [facility] Repository (1 source) traMADol; Translations: [traMADol] Drug Allergy [facility] Repository (2 sources) FLUoxetine; Translations: [FLUOXETINE] Drug [...] Sulfamethoxazole; Translations: [SULFAMETHOXAZOLE] Drug Allergy 01-18-20 12 [facility] Repository Problems Active Problems Problem Classification Problem Date Documented Da te Episodic/Chronic Congestive heart failure; nonhypertensive (2 sources) Chronic diastolic (congestive) heart failure; Translations: [Chronic diastolic (congestive) heart failure] Onset: 11-10-2023 Chronic Diabetes mellitus without complication (1 source) Prediabetes; [...] 09-20-2023 Episodic Other aftercare (5 sources) Other halfway (current) drug therapy; Translations: [OTH HALFWAY CURRENT DRUG THERAPY] Onset: 02-22-2022 Episodic Other [...] Value Interpretation Reference Range Facility Office Visiton 11-10-2023 Follow-up visit [id number] Tracey Sanchez 1980 F Date Provider Department Center 11/10/2023 [id number] BLANKENSHIP Hos No family history on file Level of Service:13694 [place] OFFICE/OUTPATIENT ESTABLISHED MOD MDM 30 MIN Normal [facility] Office Visiton 09-20-2023 Follow-up visit [id number] Tracey Sanchez 1980 F Date Provider Department Center 09/20/2023 [id number] ZAMUDIO Hos No family history on file Level of Service:04108 [place] OFFICE/OUTPATIENT NEW MODERATE MDM 45 MINUTES Normal [facility] C-Reactive Proteinon 024 CRP [Mass/Vol] 20.9 mg/L High 0.0-5.0 [facility] Comment on above: Performed By: #### C GORDO DOBBS, CP #### [facility] [address] [place] [address] [place] [address] Shape Hand: Henrique Schumacher MD CBC with Diffon 09-01-2023 Abs. Basophil 0.06 k/uL Normal 0.00-0.20 [facility] Comment on above: Performed By: #### C GORDO DOBBS, CP #### [facility] [address] [place] [address] [place] [address] Shape Hand: Henrique Schumacher MD Abs.Imm.Granulocyte 0.03 k/uL Normal 0.00-0.30 [facility] Comment on above: Performed By: #### C RPGORDO, CP #### [address] [place], [place] [id number] Shape Hand: Henrique Schumacher MD Abs.Neutrophil (Seg) 6.65 k/uL Normal 1.50-8.10 [facility] Comment on above: Performed By: #### C RP CDP, CP #### [address] [place], [place] [address]83 Shape Hand: Henrique Schumacher MD Basophils/100 WBC (Bld) 1 % Normal 0-2 [facility] Comment on above: Performed By: #### C GORDO DOBBS, CP #### [address] [place], [facility] Shape Hand: Henrique Schumacher MD Eosinophils (Bld) [#/Vol] 0.16 10*3/uL Normal 0.00-0.44 [facility] Comment on above: Performed By: #### C GORDO DOBBS, CP #### [address] [place], [place] [id number] Shape Hand: Henrique Schumacher MD Eosinophils/100 WBC (Bld) 2 % Normal 1-4 [facility] Comment on above: Performed By: #### C GORDO DOBBS, CP #### [address] [place], [place] [id number] Shape Hand: Henrique Schumacher MD Erythrocyte distribution width (RBC) [Ratio] 14.1 % Normal 11.8-14.4 [facility] Comment on above: Performed By: #### C RP CDP, CP #### [address] [place], [place] [address]83 Shape Hand: Henrique Schumacher MD Hematocrit (Bld) [Volume fraction] 45.3 % Normal 36.3-47.1 [facility] Comment on above: Performed By: #### C GORDO DOBBS, CP #### [address] [place], [place] 7606383 Shape Hand: Henrique Schumacher MD Hemoglobin (Bld) [Mass/Vol] 14.8 g/dL Normal 11.9-15.1 [facility] Comment on above: Performed By: #### C GORDO DOBBS, CP #### [address] [place], [place] [address]83 Shape Hand: Henrique Schumacher MD Immature granulocytes/100 WBC (Bld) 0 % Normal 0 [facility] Comment on above: Performed By: #### C GORDO DOBBS, CP #### [address] [place], [facility] Shape Hand: Henrique Schumacher MD Lymphocytes (Bld) [#/Vol] 1.98 10*3/uL Normal 1.10-3.70 [facility] Comment on above: Performed By: #### C GORDO DOBBS, CP #### [address] [place] [address] Shape Hand: Henrique Schumacher MD Lymphocytes/100 WBC (Bld) 21 % Low 24-43 [facility] Comment on above: Performed By: #### C GORDO DOBBS, CP #### [address] [place], [facility] Shape Hand: Henrique Schumacher MD MCH (RBC) [Entitic mass] 30.6 pg Normal 25.2-33.5 [facility] Comment on above: Performed By: #### C GORDO DOBBS, CP #### [address] [place] [address] Shape Hand: Henrique Schumacher MD MCHC (RBC) [Mass/Vol] 32.7 g/dL Normal 28.4-34.8 [facility] Comment on above: Performed By: #### C RP, CDP, CP #### [facility] [address] [place], [place] [address] Shape Hand: Henrique Schumacher MD MCV (RBC) [Entitic vol] 93.8 fL Normal 82.6-102.9 [facility] Comment on above: Performed By: #### C RP, CDP, CP #### [facility] [address] [place], [place] [address] Shape Hand: Henrique Schumacher MD Monocytes (Bld) [#/Vol] 0.61 10*3/uL Normal 0.10-1.20 [facility] Comment on above: Performed By: #### C RP, CDP, CP #### [address] [place] [address] Shape Hand: Henrique Schumacher MD Monocytes/100 WBC (Bld) 6 % Normal 3-12 [facility] Comment on above: Performed By: #### C RP, CDP, CP #### [address] [place], [place] [address] Shape Hand: Henrique Schumacher MD Neutrophil (Seg) 70 % High 36-65 [facility] Comment on above: Performed By: #### C RP, CDP, CP #### [address] [place], [place] [address] Shape Hand: Henrique Schumacher MD NRBC Automated 0.0 per 100 WBC Normal 0.0 [facility] Comment on above: Performed By: #### C RP, CDP, CP #### [address] [place] [id number] Shape Hand: Henrique Schumacher MD Platelet mean volume (Bld) [Entitic vol] 10.6 fL Normal 8.1-13.5 [facility] Comment on above: Performed By: #### C RP, CDP, CP #### [facility] [address] [place], [place] [address]283 Shape Hand: Henrique Schumacher MD Platelets (Bld) [#/Vol] 237 10*3/uL Normal 138-453 [facility] Comment on above: Performed By: #### C RP CDP, CP #### [facility] [address] [place], [place] 5775683 Shape Hand: Henrique Schumacher MD RBC (Bld) [#/Vol] 4.83 10*6/uL Normal 3.95-5.11 [facility] Comment on above: Performed By: #### C GORDO DOBBS, CP #### [facility] [address] [place] [address] Shape Hand: Henrique Schumacher MD WBC (Bld) [#/Vol] 9.5 10*3/uL Normal 3.5-11.3 [facility] Comment on above: Performed By: #### C GORDO DOBBS, CP #### [address] [place] [address] Shape Hand: Henrique Schumacher MD Comp Metabolic Profon 2023 Albumin [Mass/Vol] 3.8 g/dL Normal 3.5-5.2 [facility] Comment on above: Performed By: #### C GORDO DOBBS, CP #### [address] [place] [address] Shape Hand: Henrique Schumacher MD Albumin/Glob Ratio 0.9 Low 1.0-2.5 [facility] Comment on above: Performed By: #### C GORDO DOBBS, CP #### [facility] [address] [place] [address] Shape Hand: Henrique Schumacher MD Alkaline Phos 100 U/L Normal 35-104 [facility] Comment on above: Performed By: #### C RP CDP, CP #### [facility] [address] [place], [place] [address] Shape Hand: Henrique Schumacher MD ALT [Catalytic activity/Vol] 34 U/L High 5-33 [facility] Comment on above: Performed By: #### C RP, CDP, CP #### [facility] [address] [place], [place] 7824883 Shape Hand: Henrique Schumacher MD Anion gap [Moles/Vol] 12 mmol/L Normal 9-17 [facility] Comment on above: Performed By: #### C RP, CDP, CP #### [facility] [address] [place], [place] 5873583 Shape Hand: Henrique Schumacher MD AST [Catalytic activity/Vol] 29 U/L Normal <32 [facility] Comment on above: Performed By: #### C RP, CDP, CP #### [address] [place], [place] [address]83 Shape Hand: Henrique Schumacher MD Bilirubin [Mass/Vol] 0.2 mg/dL Low 0.3-1.2 [facility] Comment on above: Performed By: #### C RP, CDP, CP #### [address] [place], [place] 5750683 Shape Hand: Henrique Schumacher MD BUN/CRE Ratio 18 Normal 9-20 [facility] Comment on above: Performed By: #### C RP, CDP, CP #### [facility] [address] [place] [address] Dr. [place], [place] 6716883 Shape Hand: Henrique Schumacher MD Calcium [Mass/Vol] 9.4 mg/dL Normal 8.6-10.4 [facility] Comment on above: Performed By: #### C RP, CDP, CP #### [facility] [address] [place] [address] Dr. [place], [place] 9000683 Shape Hand: Henrique Schumacher MD Chloride [Moles/Vol] 103 mmol/L Normal 98-107 [facility] Comment on above: Performed By: #### C RPGORDO, CP #### [facility] [address] [place] [address] Shape Hand: Henrique Schumacher MD CO2 [Moles/Vol] 26 mmol/L Normal 20-31 [facility] Comment on above: Performed By: #### C RPGORDO, CP #### [facility] [address] [place] [address] Shape Hand: Henrique Schumacher MD Creatinine [Mass/Vol] 0.6 mg/dL Normal 0.5-0.9 [facility] Comment on above: Performed By: #### C GORDO DOBBS, CP #### [facility] [address] [place] [address] Shape Hand: Henrique Schumacher MD GFR/1.73 sq M.predicted among non-blacks MDRD (S/P/Bld) [Vol rate/Area] mL/min/{1.73_m2} Normal >60 [facility] Comment on above: Result Comment: These [...] By: #### C RP CDP, CP #### [facility] [address] [place] [address] Shape Hand: Henrique Schumacher MD Glucose [Mass/Vol] 195 mg/dL High 70-99 [facility] Comment on above: Performed By: #### C RP CDP, CP #### [facility] [address] [place] [address] Shape Hand: Henrique Schumacher MD Potassium [Moles/Vol] 4.2 mmol/L Normal 3.7-5.3 [facility] Comment on above: Performed By: #### C RP, CDP, CP #### [facility] [address] [place], [place] 6485583 Shape Hand: Henrique Schumacher MD Protein [Mass/Vol] 7.9 g/dL Normal 6.4-8.3 [facility] Comment on above: Performed By: #### C RP, CDP, CP #### [address] [place], [place] 8130583 Shape Hand: Henrique Schumacher MD Sodium [Moles/Vol] 141 mmol/L Normal 135-144 [facility] Comment on above: Performed By: #### C RP, CDP, CP #### [address] [place], [place] 1208283 Shape Hand: Henrique Schumacher MD Urea nitrogen [Mass/Vol] 11 mg/dL Normal 6-20 [facility] Comment on above: Performed By: #### C RP, CDP, CP #### [address] [place], [place] 7303283 Shape Hand: Henrique Schumacher MD UA w/Reflex Cultureon 2023 Bilirubin, SemiQt,Ur Negative Normal NEG [facility] Comment on above: Performed By: #### U SHELTON LIAO #### [address] [place], [place] 1055083 Shape Hand: Henrique Schumacher MD Blood, Urine Negative Normal NEG [facility] Comment on above: Performed By: #### U SHELTON LIAO #### [address] [place] [address] Shape Hand: Henrique Schumacher MD Clarity (U) Clear Normal CLEAR [facility] Comment on above: Performed By: #### U SHELTON LIAO #### [address] [place] [address] Shape Hand: Henrique Schumacher MD Color (U) Yellow Normal YEL [facility] Comment on above: Performed By: #### U AX, UMICAO #### [facility] [address] [place], [place] 6654683 Shape Hand: Henrique Schumacher MD Glucose Ql (U) Negative Normal NEG [facility] Comment on above: Performed By: #### U AX, UMICAO #### [facility] [address] [place] [address] Shape Hand: Henrique Schumacher MD Ketones Ql (U) Negative Normal NEG [facility] Comment on above: Performed By: #### U AX, UMICAO #### [facility] [address] [place] [address] [place], [place] 1705983 Shape Hand: Henrique Schumacher MD Leukocyte esterase Test strip Ql (U) Negative Normal NEG [facility] Comment on above: Performed By: #### U AX, UMICAO #### [facility] [address] [place] [address] [place] [address] Shape Hand: Henrique Schumacher MD Nitrite,Ur Negative Normal [facility] Comment on above: Performed By: #### U AX, UMICAO #### [facility] [address] [place] [address] [place] [address] Shape Hand: Henrique Schumacher MD PH,Ur 7.0 Normal 5.0-9.0 [facility] Comment on above: Performed By: #### U AX, UMICAO #### [facility] [address] [place] [address] Shape Hand: Henrique Schumacher MD Protein Ql (U) TRACE Abnormal NEG [facility] Comment on above: Performed By: #### U AX, UMICAO #### [facility] [address] [place] [address] Shape Hand: Henrique Schumacher MD Spec. [place],Ur 1.025 High 1.010-1.020 [facility] Comment on above: Performed By: #### U AX, UMICAO #### [facility] [address] [place], [place] 6623483 Shape Hand: Henrique Schumacher MD Urobilinogen,Ur Normal Normal 0.0-1.0 [facility] Comment on above: Performed By: #### U AX, UMICAO #### [facility] [address] [place], [place] [address] Shape Hand: Henrique Schumacher MD Urinalysis,Microon 4 Bacteria 1+ Abnormal NONE [facility] Comment on above: Performed By: #### U AX UMICAO #### [facility] [address] [place], [place] [address] Shape Hand: Henrique Schumacher MD Epithelial cells LM Ql (Urine sed) 0 TO 2 Normal 0-25 [facility] Comment on above: Performed By: #### U AX UMICAO #### [facility] [address] [place], [place] [address] Shape Hand: Henrique Schumacher MD Mucus Strands 3+ Abnormal NONE [facility] Comment on above: Performed By: #### U AX UMICAO #### [facility] [address] [place], [facility] Shape Hand: Henrique Schumacher MD Urine RBC's 0 TO 2 Normal 0-2 [facility] Comment on above: Performed By: #### U AX, UMICAO #### [facility] [address] [place] [phone] Shape Hand: Henrique Schumacher MD Urine WBC's 0 TO 2 Normal 0-5 [facility] Comment on above: Performed By: #### U AX UMICAO #### [facility] [address] [place] [address] Shape Hand: Henrique Schumacher MD SARS/FLU A+B/RSV by NAAT/Mol ecularon 06-13-2023 SARS/FLU A+B/RSV by NAAT/Molecular FLU A [...] operators who are performing tests using either [employer] or [employer] systems and is limited to laboratories that [...] repeat. Fact Sheet for Healthcare Providers: https://www.fda.gov/m edia/284350/download Fact Sheet for Patients: https://www.fda.gov/m roverto/409052/download Normal [facility] Comment on above: Performed By: #### C OVFLR #### [facility] ([id number]) [address] [place] [address], [place] [address] Coding Summaryon 03-01-2023 Coding Summary HTMLBase 64 GvqgtdqlAAe2eNp+PGhlY WQ+ME4FCQQfT82acBBolH 5vG6TDFUpGQmkqQXQFHQi PKhRdyfTyQZ6niBRqJQMr IC8+HJ2cKEClUitqtVBix 9X6sFF9B61kut3mFKuntL P5EMByCjXbfnktx2ecwMu 6IDcuNmluOyBt DJIsrM21KCJ2xN56Od14w VMbgFDmp9hjlPx5EmGhJE XtIZD0jHieKQjrk3KcSUP iB00efVHjs7T2 RZUaxLcccNIsJoJmnDS3d K7lTHednidsg4zwbaosZa v5yc73rLXnq3R0iMU8W6D ubyG1ASRkmQSn OjszuNCDjE8imlvwk4sce kgwKgYyIFJoNYa5YWs7LZ UywXdvIxNoZD49LYT3IDA lclKhO5VlJPBa tVvfRnI3n7K8Mu9FZ1KEI ppkZ3KKYDVROOywsDR+PC 23tz69I0NkSpcsQby1DTP wEHJ6yCK4cQ8t IHSfHTvth9N3zRR8T0Dbn hVtyr8qy1tmHPHaUPdvN6 3xnULbl8A5EJVxrVZ3ATP aiYkbSpNkwX22 Oyc+AQQuuCiqs2AqQvegq 4bss4padOh7MfvdWEKryx GohWwzRFP4f8ToRh5xFRO qcKG5pVP4iD3t PuXdEaC6ZSpiD414GcGxl SKrItqoE53sH4PdnOE+PH IiFze0ZFMyjBxxFH1eP3S hZGRpbmctbGVm vSspJZ5nYWWajwkaAVVjf R3vUGPmA9l6PkNvPiX4SI ncQ1NkVVIeywtdEg64tQ1 gIgWrOxT6RXxc T9YltoW1LXKggBYwREnmP MU6H39by3V5DNIjDOLjVI Y2uSS9hQ2glUstmsfwaWF mdDsgdmVydGlj NOfgBRciN064FFRxbMzgX kNvZGluZyBEYXRlOiAgMT AvMTEvMjAyMzwvdGQ+PHR sCXU5wSouSTQv jKQuPZqxVd2ukKbxwEdmQ L6lNYRvsireNNQhiU0kWF OnvRMlcGroHS5dKBNdvli ro842VcNpVUZ1 WHLzgPSnW2DlnG0eFvRlK QBfTRCdA0VsiMYgIInlI0 32ZMwwMgL1YFJzlfIsZ5E sLWFsaWduOiB0 m5O5Wv0Uv4VeobbjM3Ekp JYcHcRcXqywUIf6F9HyWv wvdHI+NZ01SCMqIL39CPn 2DNR7eGrcPYwf EYMrW8LffZ6qJbOsNQUuX GRkOyc+PHRhYmxlIHdpZH RoPScxMDAlJyBzdHlsZT0 oGt6dNDWpUIHg eOkgmCDvAjXce5mxENGjY VwgAE1kpIvsO7ErdTM0CW Vpp1a1Lx76Z91aP9ZuzDO +LBCdnMY0fBP5 pZ4yDoBbRsI8TSdqB908X sExcZRhAwimz3ioo3wwdR u3IeV9EBMqjtXfcChwSWA 6a6SmOq33J86l IHdpZHRoPSIxNSUiIHZhb Kmwzp7znH0oGw9+PGNvbC J7uXO2hG9uGmZfFnL5IHv wA449TdYcoWIb Hjzfz7dhw4nsqQo4JbPjI TAmhsPugMhyPJK8u2WqOu 31P3CmfCldu7FaFxr9wj7 6lOKch5Z2cUX8 W4UkDTSsfnwrkPKkdTrgU V4aJKTkozuyTRNbyP8cYW XqW0e1FpVaReZ1IHfwU4F deuC2EIRypOVc GUNolFMUmQ6lexiws1uwo ekrOsLaSQSpLLp0AHy3CH ZqbKazRtPwACT0QkI7BTJ 5dVIggE3chAze qmjefE6tPpc+SCV9aQLyb UCZLD1eLogcbXR+PHRkIH K7kXgpLVwjKPLurR4pVIW oQ3q4RmPvSbT4 PSvmD1CarzV6VEZbhWDaG NMyaIZUiK3zyfdul9frim mkHwXuIZEqVKc4MUj7YAY saWduOiBsZWZ0 UfP1CUK4yHCaqJ2blQcte spgjH2uRxu+QmlydGggRG A1HUq8E8IrGtx2BUVzkMa bIT4egAJhWWsz Cj9ryDbjwDtjFS7nSFNdk yoca567CdWaf4uoZGYspH SnWQxdBMI4Q16nk4N4EOA iKPLsOJG8wXE7 uW8upKyftirknHDcmTogb yWlaVjcSHebUEmdA940IM VmuQagQyRwEBp2F2PoXsf 9AGRtvGykIX6q xKRqJPmvMf0csMxhcBwoR I8zEFJbhfqyg834MsZyt1 irVQTxmGKnVNnxDFQ1B57 xe6P1BHCaAVEj OWU7bUU3bA9liVxzhnyma GVmdDsgdmVydGljYWwtYW vnV485FWTraRwwLtJphPj 3H2TmHzu3JHKr tMscDD0nwBFdVNzvWw2tq WsnjAgxMO9uZHMgizteq7 18YwRkr6nkBOYlhUIcLXv dMEB7H37fj7T7 ZMPcBOGbQLF8aKQ1kF5xw GlnbjogbGVmdDsgdmVydG gwOAmbTKocZ826NBAzuVn nPlBhdGllbnQg MIcfTWj3J3GkDhqmqSB+P A73OXFqTI36lHDfbVGcx1 uytXv9VuOlBPXeYSJ3wYq pAClpz8UnSBVj V66peFIbs1V8QBHauFkrd XKpLlCatCX1xY7fMZvjto yln9nftzfqUoeyt9lvsd6 4xG99L31xEIlk ZHRoPSIzMCUiIHZhbGlnb h4glJ1vFz8+FNNgwFQ2kJ M0rO5xRTShVhL2BIcbR79 9InRvcCIvPjxj b8med7ixpIq7PjZ0JIXgy qIyoLwfUDG6c1NvMn48E2 9sIHdpZHRoPSIyMCUiIHZ djIotah9fhL1m Ii8+FAEbtTF1mMZ7pG9oP yWrQbK1VKvsA508BqQxuX GuPgfqO66xU0UbfPS+PHR tVie4BRJzoKks SS8jtZDcOJgxUk6lJGF7V sFsZdAzFQgqF0SzESEfll egorslpVQ2PMOvLPZlxW8 0Gr2srBpaZERy qRYYsW4wrcslu2jsblhmN jQuXSJiGJs0RVg8YYEfqL gzPiKyQPU5VwV8DJA7zOY suH9zsPezxahw eR0zR3QkSAVgkzglIo69t E7iXgEcMiM7TJonIvc+UE EOH2NxRQSWHhXSNJl9Y3I oDup9LFEolFaj ZC9lyLGzTSerBv1mdUjdc GeoXJ8mTVGbewvlQBSieJ 7gCVSjyIRitXxwFQ9aFXQ efcvtl914ReXt FTA6WSLidVCkJ7UesZ1uD dDvHHDfKSWaM2SkaBTlHN qbT057TLxgPwV4OHYeepW qD8ZqPRIgnAxc NbT0e4C5Gd7rDY8sFD1xE OwqBR55DQ36dXGqg7X5jV L8F9BsINCummdtetgreBI 5ZZNoWYYxeI06 zOVgBHfqTb6zo7O9a087T WFlIPWtiC58Dd8trAovWA SczRWLlH1fcrwsv9qmdhi gIzAwMDAwMDt0 EJv9VAFueRmoSwOmFZY2U lC7NKM9uMYbyT1qvYzwfa ekoC0fNpz+NDMgWWVhcnM 0O5SxCxz4LNYa aSxfVR7rhWPiQPgyZx9xo UxzdWlxQC9lDRNjdcfwPV AawY7yAJQwcTLtpAjxQR7 lKIAcplmti296 RiKeHIE5GWYnkVPbH6Tno T7eTnIbXMLvXBRiO8LshV XzEDonA533TZuxUfG3OUC hboUbY5QjTWGe kQyuSpW2u7H3Jj1BIR3FM KS8S3HyQhl0GQZwvBovAX 0ltEGePAvpFr3zgLthyQh eGU8kINMptjti PIRjlL7jDGAfzVPlbAznX D1mVGUyrrgoh782NkJwRY A3NPXtcCIgV8EhgR1yEyQ bUAXoHXEnP8Pm jWHsGFwcA113VApvZwM8M KKokfIvC3LrOODelOffFq G2p5E6Nv6YmTMgZ9SsP8e 0J7VpZdorkYP+ VR77TYLeZX96dAJtgTYjn 2mxkCo5NqRfGUPkEJQ6rA vkZOiks2WzCDTqQ33hcEY jd8A1HAQakGls eKGySlVzbGG3yZ9cVGqpy icgb5ndcttyPlnxd5xvek 24rV11F65eVTtnHZSoMSB zMCUiIHZhbGln nw5qaI3fBo4+MDDxpLJ2p EP0tI0fHiOqWoO3IGwgK7 15EeQulCVfOtbit5zrw9o jpDj8GqPnUYNe mqEspUmyVOG8v7IkLa27A 29sIHdpZHRoPSIyMCUiIH RndPjejh7msV7aAz9+PC9 wv9bvma45sX37 dHI+SEIqFRA3hAdxQLubC NBrjO5iNIrcSkJ9AHFsTe YwhA17mRDrNDrjPd1bdAf krFnbAY5vJZKt oqejw933RoOkl3ouOQGsm XXsKUpaFPG5H77kh7H8NK FdEIPeBLD3wFH7dM1dlVq nbjogbGVmdDsg ujMomUvcGNxfJEspP202V OYkfAslSjIekJKlE1lwdn AMNP6hQhfnsSU+PHRkIHN 0eWxlPSdwYWRk eI0rNUNoH5p5IeEgFjI4L CfxK2MvgrP5FRGjvGGrAE KocKQLdP5nghrye3kpefi gIzAwMDAwMDt0 SJh6JZQzvUhlPuLlCWJ7Z dN9MXD6wRGznD9dzCobgw cymT1bUrj+RklOOjwvdGQ +UPMtUDR1xRhq NYcvVCPlrV6wJLYrF7p9F uFbKqK2XIugF4YylvX0HU ZdxSEkNAHuxBEPyL5ehie pj0foqyxbDkYr IWYeMDi4BZf8GDHshRpgZ hMfUGV7BwM6QXE5xICvaS 4pgSgfxllvoS5vQch+TVJ OOjwvdGQ+PHRk EWC5lNosTIauTSXesN6sQ WMuA6g8MmOfJxE4PZepH9 PjksI7BCIweIAdJJGlbUY IaL2agijeq9ud xxkpGrGaDSRyAYd7JNn8T ZOumXrhAqIpLNU0FbE2XA E3mRIobX4jzWamzogulI3 wOyc+UQS2JFZ6 KV89NN69P7EaUsvggONgi +PHRhYmxlIHdpZHRoPS irKYUcLlRtsJtmHO7vAa1 yZGVyLWNvbGxh cHN (more content not included)... Normal [facility] ED Clinical Summaryon 2022 ED Clinical Summary [facility] - Emergency Department [address] [place] [address] ED Clinical Summary PERSON INFORMATION Name: TRACEY SANCHEZ Age: 43 Years Sex: FEMALE : 1980 MRN: Acct#: Visit Reason: Wound evaluation; BOIL- NAUSEA, CHILLS Arrival: 02/22/2023 07:53:52 Discharge: 02/22/2023 09:14:00 LOS: 000 01:21 Check In: 02/22/2023 07:53:52 Checkout:02/22/2023 09:14:00 Address: [address] [place] [address] PCP: Provider, Unlisted PROVIDER INFORMATION Provider Role Assigned Unassigned Jorge Pulliam METAL FABRICATION SUPERVISOR Nurse 02/22/2023 08:26:14 Boy Martins MD ED [...] EDUCATION INFORMATION Instructions: Anorectal Abscess; Hypertension, Adult, [id number] Follow-Up: With: Address: When: Zander John MD [address] [facility] [address] [place], [place] [id number] Within 1 to 2 weeks DIAGNOSIS: 1:Perirectal abscess; 2:Elevated blood pressure reading Patient Understands: Yes - Patient/family/caregi sanjana verbalizes understanding of instructions given Comment: [facility] ED Note-Nursingon 02-22-2023 ED Note-Nursing arrival via private vehicle with c/o butt boil wound noticed six days ago with chills yesterday. lcta. gown provided. oriented to call light. vss. [facility] ED Patient Summaryon 023 ED Patient Summary [facility] - Emergency Department [address] [place] [id number] PATIENT DISCHARGE INSTRUCTIONS Patient Information Name: TRACEY SANCHEZ Age: 43 Years Date of : 1980 Reason For Visit: Wound evaluation; BOIL- NAUSEA, CHILLS Arrival Time: 02/22/2023 07:53:52 Primary Care Physician: Provider, Unlisted Attending Physician: Misbah Murray DO Comment: Visit Diagnosis: Diagnoses This Visit Elevated blood pressure reading (R03.0) Perirectal abscess (K61.1) Wound evaluation ([id number] eg) The Pharmacy at [facility] is open Monday through Monday from [...] alcohol and/or drug addiction problems; contact the [facility] 12/12 Crisis Hotline -Text 4HQID ki 168356. If you received any narcotics, sedation, or [...] documents With: Address: When: Zander John MD [address] [facility] [place] [address] Within 1 to 2 weeks Medication Information: The exam and treatment you received today in the [facility] Emergency Department were for an urgent problem and are not intended as complete care. It is important for you to follow up with a doctor, nurse practitioner, or physician?s catering assistant for ongoing care. If your symptoms [...] so we can reach you if necessary. [facility] Emergency Department has provided you with a complete list of medications post discharge. Please inform your sock liner/provider of your visit and for further instruction on these medications. Any specific questions regarding your chronic medications and dosages should be discussed with your primary care physician(s) and/or pharmacist. New Medications [facility][id number] [place], [place] [id number], [phone] ciprofloxacin (Cipro 500 mg oral tablet) 1 [...] Problems List: (more content not included)... Normal [facility] Basic Metabolic Profon 01-24 Anion gap [Moles/Vol] 7 mmol/L Low 9-17 [facility] Comment on above: Performed By: #### F T4, BNP, ECENZ, BMP, TSH, CDP #### [facility] [address] [place] [address] Shape Hand: Gera Mckinley, DO Calcium [Mass/Vol] 8.8 mg/dL Normal 8.6-10.4 [facility] Comment on above: Performed By: #### F T4, BNP, ECENZ, BMP, TSH, CDP #### [facility] [address] [place] [address] Shape Hand: Gera Mckinley, Chloride [Moles/Vol] 104 mmol/L Normal 98-107 [facility] Comment on above: Performed By: #### F T4, BNP, ECENZ, BMP, TSH, CDP #### [facility] [address] [facility] [place] [address] Shape Hand: Gera Mckinley DO CO2 [Moles/Vol] 28 mmol/L Normal 20-31 [facility] Comment on above: Performed By: #### F T4, BNP, ECENZ, BMP, TSH, CDP #### [facility] [address] [facility] [place] [address] Shape Hand: Gera Mckinley DO Creatinine [Mass/Vol] 0.5 mg/dL Normal 0.5-0.9 [facility] Comment on above: Performed By: #### F T4, BNP, ECENZ, BMP, TSH, CDP #### [facility] [address] [facility] [place] [address] Shape Hand: Gera Mckinley DO GFR/1.73 sq M.predicted among non-blacks MDRD (S/P/Bld) [Vol rate/Area] mL/min/{1.73_m2} Normal >60 [facility] Comment on above: Result Comment: These results [...] T4, BNP, ECENZ, BMP, TSH, CDP #### [facility] [address] [facility] [place] [address] Shape Hand: Gera Mckinley DO Glucose [Mass/Vol] 111 mg/dL High 70-99 [facility] Comment on above: Performed By: #### F T4, BNP, ECENZ, BMP, TSH, CDP #### [facility] [address] [facility] [place] [address] Shape Hand: Gera Mckinley DO Potassium [Moles/Vol] 4.0 mmol/L Normal 3.7-5.3 [facility] Comment on above: Performed By: #### F T4, BNP, ECENZ, BMP, TSH, CDP #### [facility] [address] [place] [address] Shape Hand: Gera Mckinley DO Sodium [Moles/Vol] 139 mmol/L Normal 135-144 [facility] Comment on above: Performed By: #### F T4, BNP, ECENZ, BMP, TSH, CDP #### [facility] [address] [facility] [place] [address] Shape Hand: Gera Mckinley DO Urea nitrogen [Mass/Vol] 12 mg/dL Normal 6-20 [facility] Comment on above: Performed By: #### F T4, BNP, ECENZ, BMP, TSH, CDP #### [facility] [address] [facility] [place] [address] Shape Hand: Gera Mckinley DO Brain Natri. Peptideon 01-24 Natriuretic peptide B (Bld) [Mass/Vol] 93 pg/mL Normal <300 [facility] Comment on above: Result Comment: An age-independent cutoff point of 300 pg/ml has a 98% negative predictive value excluding acute heart failure. Performed By: #### F T4, BNP, ECENZ, BMP, TSH, CDP #### [facility] [address] [facility] [place] [address] Shape Hand: Gera Mckinley DO CBC with Diffon 01-24-2023 Abs. Basophil 0.10 k/uL Normal 0.0-0.2 [facility] Comment on above: Performed By: #### F T4, BNP, ECENZ, BMP, TSH, CDP #### [facility] [address] [facility] [place] [address] Shape Hand: Gera Mckinley DO Abs.Neutrophil (Seg) 3.90 k/uL Normal 1.3-9.1 [facility] Comment on above: Performed By: #### F T4, BNP, ECENZ, BMP, TSH, CDP #### [facility] [address] [place] [address] Shape Hand: Gera Mckinley DO Basophils/100 WBC (Bld) 1 % Normal 0-2 [facility] Comment on above: Performed By: #### F T4, BNP, ECENZ, BMP, TSH, CDP #### [facility] [place] [address] Shape Hand: Gera Mckinley DO Eosinophils (Bld) [#/Vol] 0.20 10*3/uL Normal 0.0-0.4 [facility] Comment on above: Performed By: #### F T4, BNP, ECENZ, BMP, TSH, CDP #### [facility] [address] [place] [address] Shape Hand: Gera Mckinley DO Eosinophils/100 WBC (Bld) 3 % Normal 0-4 [facility] Comment on above: Performed By: #### F T4, BNP, ECENZ, BMP, TSH, CDP #### [facility] [address] [place] [address] Shape Hand: Gera Mckinley DO Erythrocyte distribution width (RBC) [Ratio] 14.7 % Normal 11.5-14.9 [facility] Comment on above: Performed By: #### F T4, BNP, ECENZ, BMP, TSH, CDP #### [facility] [address] [place] [address] Shape Hand: Gera Mckinley DO Hematocrit (Bld) [Volume fraction] 41.3 % Normal 36-46 [facility] Comment on above: Performed By: #### F T4, BNP, ECENZ, BMP, TSH, CDP #### [facility] [address] [facility] [place] [address] Shape Hand: Gera Mckinley DO Hemoglobin (Bld) [Mass/Vol] 13.7 g/dL Normal 12.0-16.0 [facility] Comment on above: Performed By: #### F T4, BNP, ECENZ, BMP, TSH, CDP #### [facility] [address] [place] [address] Shape Hand: Gera Mckinley DO Lymphocytes (Bld) [#/Vol] 1.60 10*3/uL Normal 1.0-4.8 [facility] Comment on above: Performed By: #### F T4, BNP, ECENZ, BMP, TSH, CDP #### [facility] [place] [address] Shape Hand: Gera Mckinley DO Lymphocytes/100 WBC (Bld) 25 % Normal 24-44 [facility] Comment on above: Performed By: #### F T4, BNP, ECENZ, BMP, TSH, CDP #### [facility] [place] [address] Shape Hand: Gera Mckinley DO MCH (RBC) [Entitic mass] 31.1 pg Normal 26-34 [facility] Comment on above: Performed By: #### F T4, BNP, ECENZ, BMP, TSH, CDP #### [facility] [place] [address] Shape Hand: Gera Mckinley DO MCHC (RBC) [Mass/Vol] 33.1 g/dL Normal 31-37 [facility] Comment on above: Performed By: #### F T4, BNP, ECENZ, BMP, TSH, CDP #### [facility] [place] [address] Shape Hand: Gera Mckinley DO MCV (RBC) [Entitic vol] 94.1 fL Normal 80-100 [facility] Comment on above: Performed By: #### F T4, BNP, ECENZ, BMP, TSH, CDP #### [facility] [address] [place] [address] Shape Hand: Gera Mckinley DO Monocytes (Bld) [#/Vol] 0.60 10*3/uL Normal 0.1-1.3 [facility] Comment on above: Performed By: #### F T4, BNP, ECENZ, BMP, TSH, CDP #### [facility] [place] [address] Shape Hand: Gera Mckinley DO Monocytes/100 WBC (Bld) 9 % High 1-7 [facility] Comment on above: Performed By: #### F T4, BNP, ECENZ, BMP, TSH, CDP #### [facility] [place] [address] Shape Hand: Gera Mckinley DO Neutrophil (Seg) 62 % Normal 36-66 [facility] Comment on above: Performed By: #### F T4, BNP, ECENZ, BMP, TSH, CDP #### [facility] [address] [place] [address] Shape Hand: Gera Mckinley DO Platelet mean volume (Bld) [Entitic vol] 8.5 fL Normal 6.0-12.0 [facility] Comment on above: Performed By: #### F T4, BNP, ECENZ, BMP, TSH, CDP #### [facility] [place] [address] Shape Hand: Gera Mckinley DO Platelets (Bld) [#/Vol] 219 10*3/uL Normal 150-450 [facility] Comment on above: Performed By: #### F T4, BNP, ECENZ, BMP, TSH, CDP #### [facility] [address] [facility] [place] [address] Shape Hand: Gera Mckinley DO RBC (Bld) [#/Vol] 4.39 10*6/uL Normal 4.0-5.2 [facility] Comment on above: Performed By: #### F T4, BNP, ECENZ, BMP, TSH, CDP #### [facility] [address] [facility] [place] [address] Shape Hand: Gera Mckinley DO WBC (Bld) [#/Vol] 6.4 10*3/uL Normal 3.5-11.0 [facility] Comment on above: Performed By: #### F T4, BNP, ECENZ, BMP, TSH, CDP #### [facility] [address] [place] [address]. [place] [address] Shape Hand: Gera Mckinley DO SARS-CoV-2 + Flu A/Bon 01-24 Influenza A, RT-PCR Not detected Normal [facility] Comment on above: Performed By: #### C VFLU #### [facility] [address] [place] [address]. [place] [address] Shape Hand: Gera Mckinley DO Influenza B, RT-PCR Not detected Normal [facility] Comment on above: Performed By: #### C VFLU #### [facility] [address] [place] [address]. [place] [address] Shape Hand: Gera Mckinley DO SARS-CoV-2 (COVID-19) RNA JOCELYN+probe Ql (Unsp spec) Not detected Normal [facility] Comment on above: Result Comment: Testing [...] and epidemiological information. Fact sheet for Patients: https://www.fda.gov/media/394087/download Fact sheet for Healthcare Providers: https://www.fda.gov/media/909975/download Results reported to the appropriate Health Department Performed By: #### C VFLU #### [facility] [address] [place] [address] Shape Hand: Gera Mckinley DO Source .NASOPHARYNGEAL SWAB Normal [facility] Comment on above: Performed By: #### C VFLU #### [facility] [address] [place] [address] Shape Hand: Gera Mckinley DO Strep Group A, Rapidon 01-24 Strep A, Molecular Negative Normal NEG [facility] Comment on above: Performed By: #### R SAB #### [facility] [address] [place] [address] Shape Hand: Gera Mckinley DO Source .THROAT SWAB Normal [facility] Comment on above: Performed By: #### R SAB #### [facility] [address] [place] [address] Shape Hand: Gera Mckinley DO Thyroid Stim. Horm.on 2022 Thyroid Stim. Horm. 0.67 uIU/mL Normal 0.30-5.00 [facility] Comment on above: Performed By: #### F T4, BNP, ECENZ, BMP, TSH, CDP #### [facility] [address] [place] [address] Shape Hand: Gera Mckinley DO Thyroxine, Freeon 01-24-2023 Thyroxine, Free 1.1 ng/dL Normal 0.9-1.7 [facility] Comment on above: Performed By: #### F T4, BNP, ECENZ, BMP, TSH, CDP #### [facility] [address] [facility] [place] [address] Shape Hand: Gera Mckinley DO Trop/Myoglobinon 01-24-2023 Myoglobin [Mass/Vol] 35 ng/mL Normal 25-58 [facility] Comment on above: Performed By: #### F T4, BNP, ECENZ, BMP, TSH, CDP #### [facility] [address] [facility] [place] [address] Shape Hand: Gera Mckinley DO Troponin, High Sens 7 ng/L Normal 0-14 [facility] Comment on above: Result Comment: High Sensitivity Troponin values cannot be compared with other Troponin methodologies. Performed By: #### F T4, BNP, ECENZ, BMP, TSH, CDP #### [facility] [address] [facility] [place] [address] Shape Hand: Gera Mckinley DO XR CHEST PORTABLEon 01-25-20 [...] Rachele Hoover MD 01/24/23 Final result Normal [facility] Coding Summaryon 12-15-2022 Coding Summary HTMLBase 64 VrcitokcYPf2rFx+PGhlY WQ+EZ7OFSTsE36cjPSspS 1vF3MTSWmLGisdCXYYXYm JByWrjmVaMR6zbRSiVHNs IC8+FA3dTZNkNkkrvAVmz 2B6dEZ7B23vav5qRHvrhV U4JRNpZwVgjhxlg7shmVh 6IDcuNmluOyBt TCXnaS34EJL8cJ52Xw98d EZibTXhw3sltEl5MsZoRI YuYCC0aRuhKOkcv9RkCOD iL32ixNHbv9V5 KEZsnQtjrEPmHdCrbSJ2z W9fMCspczfcu9zzrbpaDv m8uq95dKGby0S7kVD7S0V gqeO3PCTatFFn IupcnWPEmY4pesnht4eea zklKiBnGBHuBRz9ZPs8GQ HebEiyIdAtPL97DLB2GAM giuZbG2RnQZZu xTymGiC4j4R3Sb7EF8FBS kexI6DPZRIMCEkgwVH+PC 47bl13A0LlTxoqOpa3WLM xAHR9iBT9pR8p OJZbKKadk2A2bUZ4Q0Pyw kGtio7vt9wqONTnSRxbW1 1ysIKnv2M5BMQakIW1XIN ofRsbKjIlfH54 Oyc+MTUecYldn8YmNscox 4put5dsrXa3DkkeFDHwrg YeaHtsBVG3t2XxYb1yBOM lgIS9sTA5uP2s NqDyYmY3HOugP220XdZla JXmWnqwP22nS9ZlcDA+PH CxIzx9LXRqlMiuGC1bQ0D hZGRpbmctbGVm zMkxLJ3dZXKbcfleAEDan N2kZSDtV6y6PjPdYfN4GN bnN7AfUTUuityqLs92kE7 cEeBnYkY7PCha C7CzbvA8GOPccXMzFVlsI FC1X31wa4Z1QIQsDDNlHX O1xUS7kO2cyZdzhkpuqAT mdDsgdmVydGlj QNesKOhhB737KXSgbEhdV kNvZGluZyBEYXRlOiAgMD cvMjcvMjAyMzwvdGQ+PHR dPAL4aNwpEPHm vMEyRNumAp6pzCucfIhhI N7lOVJiftfrUWWrfV3xXA PngKPzmQssEW9mHSEbkvv sk300AlVjLYG1 DYQooCThD7EhiR4cQvOyN SOdCHQdG5TgoQOmPWxoJ7 06SPguHdQ4NXRfwhMuV2B sLWFsaWduOiB0 s4Q1Ou6Le9AozdvjR3Mog TOgHeOwYwnrIQf7F5LlVa wvdHI+BR99LHQqXT98XFh 8DTI2aFogFUhf TWEvG0XuiE5sHnJdZOLoJ GRkOyc+PHRhYmxlIHdpZH RoPScxMDAlJyBzdHlsZT0 zPr7tFAGpVHCi fPcuiCTqJrYyg5wxPVDrH FjfUV1snGroL5DxwUZ8PS Inf1d5Xy57D14uA5SkfTT +WFInfVK0tVD1 bI4tJyAaHjV4DWhgA074G bNxiQVtRtcvv9ubl4xoqA g5NoY1RHCvbyUciRjvEPJ 7a1OeXo26S66z IHdpZHRoPSIxNSUiIHZhb Zyfqe6coP4fTs5+PGNvbC W2bTB7pU3sJzTiWdV2UWh iQ546RhPqpEUm Mpvhl4aze1xbiSl0BmMxN KUnhbQgcZsiLMI4e6ReMo 92Y5FrnHqbs4DzCor6pd4 0fLSpe5L1qWY2 E5IuCNThcebbpGCfgTcmH Y5pDKFaqtzuVTZatO3xBT ToQ7h1UkSmUjK9JFbmO6G kwsJ5EZBxtDQj EGRnqQLOyX6kjzcwl0jcn nnzVeTcLXRsWIg7KUe2CP FfgYtrXbIoIOC3FkQ2GMG 0zCFfeT4iqGwc iihcjX8pEgq+XYK5eQCfg YGSGB2pQcluoZE+PHRkIH W6hIxxFMusCEKbwM9fWOQ rJ6t5VqRpAuZ9 NZbhC6JwqrK5HMGxmAVuZ GCihOXGtE2xmeqcp4tvof mhWmHqGDWhMJf6JDp1IEF saWduOiBsZWZ0 WdU8EDZ1dKIsiE6kaQpup clgvS5yLwa+QmlydGggRG G1XAd8T7SfYtr9XTVnbZl eYX1rnOYtMHwm Ro9ndEnrgYnjZB7oPXCwb fata364ZlYoe4mhYHNmiM BqNIuxZDP3G95gz5D7TCN uFPHyXPQ1bWD0 mS9ncPwqaozbaIHlwCbnk lPswOjgTHekGNhrR253PN EweWawAjHjFIp4V8KzOlf 8JCTygJmvKS6x kVIvKEnySw3yxSszrLhbM X6yVCJjdnuyh238ArTgg7 mbLWNciELcCZykIZW9Z99 ye0Z0SARvPONf JNP5vAF0cH7nzNedesyrm GVmdDsgdmVydGljYWwtYW hmF708CGHsbFxfIoRmuSx 8E5RrLbl7SQKt cEqhOO5drGUpQCblCo3ux XtknDsjRL9jVNCnhzjyb1 49NxUif0pmDQYyaMFpWPj wROG6G78io3G6 PBFxFBSlZGL7uBO5gU8ux GlnbjogbGVmdDsgdmVydG flPNfyWAziR850WJDulHd nPlBhdGllbnQg LQuuTQk1W2PcHftewWR+P M66WDDnSC19cPVptRXba6 hjtYi4AvLxUHLkSPY8iBm qSYqol6BmESOq Q19hwPEoq3M9BXNvcZepf PIvXwMwxDX3xT9fXQcmgy xxn0srscqcJwkpv1wmma4 9wK73E74dVAub ZHRoPSIzMCUiIHZhbGlnb j9veR6pTh7+GZRvpPQ7iN G9xV1iPXXeOmE4DMwaA07 9InRvcCIvPjxj c1wft8oawAu1MxH3OLGze gYrdLqtPSY6d9FiPl91G2 9sIHdpZHRoPSIyMCUiIHZ vvBdpkv0gyZ1t Ii8+ZDFbwHI8oEP5bX8vN zXzMrE5MTpmA077HaPgnK HeOhssN39fT8MzuCR+PHR rJrr8MFTjbPlt UH3qgWRuTWiqLl8jAFK8Q lWzWtTdZGxyM0JqNYResz vnvemqyFZ9VVOjUEPubM6 9Nt1qcEevPJNe eEJVqX5flcwef3ltoxszV iBbBRAgTWv0XEf6CVDrzA csCpPkACB1ZbK5UQH0bJA juB7nqHstvqgl nF6pF1NtXBPkshuqDw43v D5qCsXrZtH6PHlmXpd+UE PBO5NlDBYLAbYIVAu5X0Q aAfi2BQPjwZyk XZ5xzSOrKJszGl5hcUxxe PotTC7lULMcitwzRFQukG 6wCPGrhZBulIiwUU4eXPK ilzvud017LaJr QTL3OGMhyPPoT9QfmO5cI uAfPRZxGXWfI8IhfCOgTH rsO636ADjiBwF1APUcxcI yW6QpCSRhoGit QxX2d6O7Xj5rPO5sIQ3vH IfqKI86CM97lONzs3L4dQ T2Z1LyHYYqdlqoaxptcZK 8CTZvKNPuhN92 xVRmWPysIn4ix8C1l787W LMuLTVeoP78Ow9utPwmQX InzXGJfX7rlinfh9dukqw gIzAwMDAwMDt0 SVp1LXMcvZyfXlBuZQS7B tW3HMS0bSLjrB6akPrrpx ogjR3kUjm+NDIgWWVhcnM 6B2JnLst9CHRs jIolIV3gwRSxYChdWf0za ZeguKgpQB1cCDBzqyjlAZ LbbV9wZNEvhXLqbVwwZZ3 nCIDfklnwl394 QjZdRRG2NRNxwGPyN7Bix Y8fIjMzIWZiHRQaR0IjgI JaLXsoI035UTefKeJ6TML miaFoC6OpGKNz gZaqGdD2u1M2Ar3FMA5KT PS5Y9XjSnu2OTOgfZhhYX 4jyOVuFOooYd2lbMqfaYr xJQ0vARIjdxkb WQVzxT4rDBLmsGRuxDkkV O6kULJzoftpr138AfPzWR K7IKJxwQIyC3JcpZ3uIcW xGJEyYAJpU8Ts wTLvKIcaZ679ESteIeZ2N ACjseZdS6JvVGTfqHhqAu D5a1W9Vx6GfWLdX2LqJ8g 8C9FiIpgwoFI+ OG14VJGpUX06gWVovGGgb 2lhzGd5DbTmFAEkSZQ3pT iuKIwfq4XuNVVjE74ioSG qk3S6BQHfzVag cMNuAdZawRQ0cU0tDLzqg fexv4ufsjdhNhaxb3euvo 30wM75H09bPEbeCVDzVQQ zMCUiIHZhbGln rs9mkU5pHm2+WXKpqIY1m FF5rV7iQvSfPsL1ZQesB0 29PfFcrLHvGyijk1vep8j ccSm4GsRiXUZw gnVyiIxoBIB7k8YzQk89Y 29sIHdpZHRoPSIyMCUiIH CqrAouua1cjY1tUx2+PC9 py9xetv67tL18 dHI+ZUPyRLA1aAvnMGbkE UHilQ5cAShsXzD4IPIoWy XlpN62hPOzWTwsYz2xeKc okBhqPS8cMKLh arrqs852SmSex6dmZVVua VKeCYxaLWO1U52jc8F5PG NtFXWqWLF2vTW3dI7npWh nbjogbGVmdDsg sqWbbRojOMyhYBnwI505J UPakGsuPmBwxUOkA3ckzq UJGI0bGcwihUU+PHRkIHN 0eWxlPSdwYWRk dH6zNDIjV2v8NyZoGwK4A CerB7IjryF2HUIldNXpET HdoBTDvM6ymwagv2vqivw gIzAwMDAwMDt0 YSy0ISHzpEkwGbYwDTE7T sO6EVK9oJPpaY2khFhwel wpvO0qDql+RklOOjwvdGQ +IBBoOXV3tBsa OJzkPEVrzV9tGPJiI6b8W uWyQqW2JLszJ0McjxG3FW WybJEgNFZuwJPAiI1haun rm6vaehrlGqXp EIShJGq0TCl0CALnlLwdD jHwPVL8GgG6ZJZ4wOSroO 4icArrplwspT0tLwf+TVJ OOjwvdGQ+PHRk ITC4mEciJZqhSUPjxQ0lL MGlQ7d5DvOfWvP2FRqpP6 NbxqZ0MJAygGGsSIDcsTB BeK8klbrgj3rl mxygUyPlJRWvTWx7UUv3Q LOrqUxtUdQaYIW0FgV2WY J8zCJdmC8kdXjmihtcvF2 wOyc+AIL3LXC5 ID55FQ86T1AlDlitbDLmp +PHRhYmxlIHdpZHRoPS suLXShUrIhgNpsJL4nQs0 yZGVyLWNvbGxh cHN (more content not included)... Normal [facility] ED Clinical Summaryon 2022 ED Clinical Summary [facility] - Emergency Department [address] [place], [place] [id number] ED Clinical Summary PERSON INFORMATION Name: TRACEY SANCHEZ Age: 42 Years Sex: FEMALE : 1980 MRN: Acct#: Visit Reason: Back pain; Abscess - perineal or perirectal; LT LOWER BACK PAIN, ABCESS ON BOTTOM OF RIGH [place]HEEK Arrival: 12/07/2022 11:16:10 Discharge: 12/07/2022 12:44:00 LOS: 000 01:28 Check In: 12/07/2022 11:16:10 Checkout:12/07/2022 12:44:00 Address: [address] [place] [id number] PCP: Provider, Unlisted PROVIDER INFORMATION Provider Role Assigned Unassigned Elias Huff MD ED Provider 12/07/2022 11:20:43 Ashvin Hernandez [employer] SUPERVISOR Nurse 12/07/2022 11:21:41 VITALS INFORMATION Vital Sign [...] Adult; How to Take Your Blood Pressure, Cjwi-bu-Ovas; Skin Abscess, Kczm-ig-Inwp Follow-Up: With: Address: When: Follow up with [...] reading is consistently elevated. With: Address: When: [facility] [phone] Within 3 to 5 days Comments: Wash [...] keep it clean and dry. Follow-up with [facility] wound clinic for reevaluation Return to ER if there is any worse problems such as increased swelling, redness, significant pain or purulent drainage from the wound. DIAGNOSIS: Abscess, gluteal, right; Acute left-sided back pain; Elevated blood pressure reading Patient Understands: Yes - Patient/family/caregi sanjana verbalizes understanding of instructions given Comment: Normal [facility] ED Note - Physicianon 2022 ED Note - Physician Patient: EMIEL SANCHEZ Age: 42 years Sex: FEMALE : 1980 [...] Intact Skin Turgor Elastic Mucous Membrane Color [place] Mucous Membrane Description Moist . General: Alert, [...] an asid (more content not included)... Normal [facility] Comment on above: Order Comment: Elisabeth fernández Attachment [id number] Can be viewed in source system ED Patient Summaryon 023 ED Patient Summary [facility] - Emergency Department [address] [place] [address] PATIENT DISCHARGE INSTRUCTIONS Patient Information Name: TRACEY SANCHEZ Age: 42 Years Date of : 1980 Reason For Visit: Back pain; Abscess - perineal or perirectal; LT LOWER BACK PAIN, ABCESS ON BOTTOM OF RIGH [place] Arrival Time: 12/07/2022 11:16:10 Primary Care Physician: Provider, Unlisted Attending Physician: Elias Huff MD Comment: Visit Diagnosis: Diagnoses This Visit Abscess - perineal or perirectal ([id number]) Abscess, gluteal, right (L02.31) Acute left-sided back pain (M54.9) Back pain ([id number]) Elevated blood pressure reading (R03.0) The Pharmacy at [facility] is open Monday through Monday from [...] alcohol and/or drug addiction problems; contact the [facility] 12/12 Crisis Hotline -text [phone] to [phone]. If you received any narcotics, sedation, or [...] reading is consistently elevated. With: Address: When: [facility] [phone] Within 3 to 5 days Comments: Wash [...] keep it clean and dry. Follow-up with [facility] wound clinic for reevaluation Return to ER if there is any worse problems such as increased swelling, redness, significant pain or purulent drainage from the wound. Medication Information: The exam and treatment you received today in the [facility] Emergency Department were for an urgent problem and are not intended as complete care. It is important for you to follow up with a doctor, nurse practitioner, or physician?s catering assistant for ongoing care. If your symptoms [...] so we can reach you if necessary. [facility] Emergency Department has provided you with a complete list of medications post discharge. Please inform your sock liner/provider of your visit and for further instruction on these medications. Any specific questions regarding your chronic medications and dosages should be discussed with your primary care physician(s) and/or pharmacist. New Medications [facility][id number] [place], [place] [id number], [phone] ketorolac (ketorol (more content not included)... Normal [facility] Coding Summaryon 11-30-2022 Coding Summary HTMLBase 64 TdyiazvpKBn4zJh+PGhlY WQ+WP9RITBuW38guRGdzH 6eZ2ZOWNfQDczsSLQEGGa WPgZojlHjVY7olSGzKOXs IC8+OD1tILYhOmhkaGReo 0X1zYS7H39fzw0wOKmwuW H2MLEuPdDurmcfs2ndwGj 6IDcuNmluOyBt PXOiwY14ERA4hO63Lp23e FPpyVUbb4vjpBf0VrTdIW WoJFZ6pIteADecs1PmDSB kE48taTTbi2I6 HDBhcSxapSWkUnDivYU1f F4aGHpqzhyrz4hwfwdmQe b3qs49eEGhx5O8zLE4V7H qgcK0TLNjcGSx JktwhAICuO3ffocev7ach kjcOuCoJWDeECb1FFv5HO DtaKvlQgBwTL29NMG5JKF ccnEuT6VpYGVb tQtsGmH6j7F0Iq2DQ9OPI shmO1SQRBHOVKkzmLD+PC 78pn69C0DbUucbKno2FCV tIMH2sAH2fY7l UUQjWHxxp8B9cJQ4B1Cdu fLpea0ig5dqFGVmQYnrI3 1ezAYvl9A7DUEauJP4AWF pqHvxJrBgxI63 Oyc+XEQnnZyfw7PuOplva 3cah4uifYb5RtsrRWGoxh PrvLfyBXH3g8BiRg7tJTZ ouWN8uXH9wC8n GzLkRfJ6XLbiJ492StZxj QFbIgeyY61aH2VheWX+PH OjPik1EYVkdUdhHV7rB1S hZGRpbmctbGVm aFivIH0jALRngkrcYUQhn E8fLDYbH4i7WfQzAyF6YP ypU9YjQMWuvozrUi27jK5 yWzZxQcS9JQfo D8BvsdW3RTElqQHlXNqnX PA5N02hp8D8YEDhDRAmOC A4eTE7mH2vrJkxbbzrnZC mdDsgdmVydGlj QArdDBenF126XHHjnChhX kNvZGluZyBEYXRlOiAgMD cvMTIvMjAyMzwvdGQ+PHR rGJJ5zMqgAQSy uLTcDCelBk8bzTmbdYovD J3wTWUfnnxcYBYwuI6hIL CoaJCxwUimXO1bEFAdhwg ml643MgQpQEZ4 VGLktIGxC1DyzM9eCrGhT IOuPLCrA0VhiBDmPParD6 70CFkwRyE8PVTrzuHuC5G sLWFsaWduOiB0 d8D6Hv9Ij0ZnemneP2Dkw AYhCmKcXrfkEXw7Z3QgXw wvdHI+PI07KYAeDC07RMq 9MPP0dBikIFsk AHFkR5FebC8cDtXuLLNmZ GRkOyc+PHRhYmxlIHdpZH RoPScxMDAlJyBzdHlsZT0 eQh1nPUSjFVPh vBkbhUYvHxNox5yzBORwC HnbWK2vkQsaV9XrzRI3AA Dfn6u5Tf78S47jG4OasKV +UDFoeGL5fGJ8 iA6xKcLtFuL9BJgyR111Y jXmfFIkPvpqx4hgv4jtcV y2RxE2RCThuzFfgHxaGXZ 1a6ZoPg23B84v IHdpZHRoPSIxNSUiIHZhb Wkvnm4juJ2uRt4+PGNvbC H3pBP3pS4lKhHfIqK0RJm lQ022TzYofGYf Vfmwv3idw7aeqQg9OhTxO ARjjnEjiPlpRTG2n8VcAx 60F7PppZxqk2EnMde2ua4 4cJJmy0K2qRR2 W0KwMAVrwbqpwDJpxWndH Y9oNDWrriaxQYSchH0nSU GcO1z9VqSpHaK1BIzvK2Z qgmW9OSImbHAv XSNwbCDBpS3xmhjhh9kfw eyrJtRsNUZjPNg5JWa6GF UvoLxbQbRpHJS9BnM8XFZ 8mLDovW0kiVyx ttbtaY5rInb+DQA0hDWlr ITFHQ0rDwhvuMM+PHRkIH Z9jHsvVSrnGTIouY2kJAU jR4l0QqJzEtW4 LAmjQ0RgmjS7JISmuRSgI SXbfUMEyP2knvxpb7awdv pyVgFeMWYlPXu6REq4RNR saWduOiBsZWZ0 IrF5OSA1mOJmfM6ojCzcj pufbA7mCgr+QmlydGggRG J2HBl3Z3QfPrl6JPSsyRs bGY4umIMuJOtk Ce2exTwrqGimFS6bXJTdk oxpe074RiEsp7zyKXUosW WnXDqfQYJ3C47ko0N0ZYU yHZXmRWJ6rKA1 xP0ohLkwnbsidSNcyPvod eIptDujAZtpQZsuG801VX FosXxlSpFeMAx1E2DeXbi 4FQQseHhsMD8s eHBkQBdrXn6mpPgamPweB X7wXRQspluqr987SeHmr8 vaKSDhjGSnSOudDHF9E30 ij8P3WGKiMJYw TUG3bOD8wT7icHylefaoz GVmdDsgdmVydGljYWwtYW kmU360URYddBnjKmEpjFh 4U4QiZmx3QVQg pYobNG2ykMBfAUfqXs3tf WcziDxgVF0gMUTzraiie4 39FuFij9zpNSTiaUQwEJg eNRW8O07zc2R3 CJHiYTWjANB6jLZ8lG3ag GlnbjogbGVmdDsgdmVydG zxBAirEFyaR490HXEbeQf nPlBhdGllbnQg SZyoTTt5G8CiOohxfXI+P W35QYReWL35jUVdqXDcd1 aneAt4JkLvLYVaSPM5eYu dPGnch4TfWUSj I41dhTGcl1E4SYIjsStgj MHvLlIvoDC9vY5eEUoxkx wnr8zqfeepPjxqi6idcs7 1yH14O43aRFef ZHRoPSIzMCUiIHZhbGlnb x5uqT4lHb2+QTItiKG5dA C2fB7tGBWlMaS1ZYuyV53 9InRvcCIvPjxj n4mxf3lpfIp4RnT7BGFac jGjwHigVCL8n0CmLd03Q1 9sIHdpZHRoPSIyMCUiIHZ imSyoin1miU1q Ii8+ABZesVG3wFP3kK2aS uYsNsQ8MHoiJ035FtWewM XtNgwxW60pZ7PxcAZ+PHR qEjr6ZNLckBwc ZU6dyQArDLqxFo8pTTP4A qJcFlGaXBgrQ9UgJHLded uqqrwkqHW8TYJtUTCulD4 6Qu1duShyDMIq iEERaN9cjgadz1wdinxjH jGwPXVyHOo1XLx3GDSseQ otDxRyQQE4JgA3VSA9eFY rfI2ssBdoinmr mY1cT6ZsQNPzvybvMc26v L4rRhGgYzW9NBmsQan+UE XEG1OkQWEYFoRDCSb2H4P gRxv9QNGtzRjg WR4atMGpFGleOi6pvQzxl IsbAC9tXMRrcwctCROgqG 5yZFMjbWPjcIoxEE4jZZB cgrgyd377UnFi AQT3ZPLnhBOlN4FscQ2tL rXcSWWnWQMcQ5LsiOPnDI uzM838ANxhXdE2DNVxiiV qO3TdPALzpEqt OqQ9o4N6Hg8wCG1sBK2wU GriCI71FY08rHAgf7L2tS X0I5JwKIJdidsqabedbTL 7PDDwPRJrbZ83 hVRbMStdVw1fw8J7h388E KGzESJszE22Hg1ofZboQX HcbWAUuZ9vephwo3clnkd gIzAwMDAwMDt0 MTu8UUPlpBkmWuGdHGB5F hH2MOZ6uBQqgV0leFzswf clbD2rMsh+NDIgWWVhcnM 3O5DbSqm2PMGo qOciXD8blATfRIunKo9fr EpohMeiFO1lQYXcmoqvFM HudS8bRRFgdFByxEdlIU5 xXGGphikng311 QwHpTQW8FMRouOPvF4Knx L4gLoZzKZGmUAOkT6AnfJ FlCHvfM986MDahFvI3IRY lslXmC9UbSWOu bYhsClB7a9E9Yw8MBG4XC FS6N0IvLhh9SPCywSthQW 7tbOOaAMnhRk8ysDbedSd zPB8lFWLyinej YQCvkZ5xATFyvRJtuRcjX S7lJKCtlaftg728QyNvIS Q2FCZayOPeK9CkcY5eIsI bVZDbLBJgT6Pk jVBtAZfuD743EIbrSfY3L ZCbnyEoW5AeZWAaiGmuIo L0u9A5Ub4AjBQwN4EqG4j 5A7QiBtvthQF+ MF62JTMnDZ11cXKgfPHop 2gwmTn7UlBuBUXySSR3qV pmQKdtu7BlAJDyW15ahIW sq3U7TNCvzMbm vHZqChTedBJ6hI1eEIqvs xeof9okhatmBaefu5kzme 04hN78W71cIPijKMNfJQR zMCUiIHZhbGln dc8lqQ0eIm7+NTPhpAA9b FW0hU8hZzFnPsN8RJnjX6 20RuLfbLWsEpwmc3oid6f ofAh8CvZrRRPs zgKyxXbbVGF4f8DjId80E 29sIHdpZHRoPSIyMCUiIH GdwCcktr5voA8bVi9+PC9 sb9olgw38eK75 dHI+TGUkJBM6fJqmBSpkE YAqhR6hXAywTwS4HYFzVp IeoF45nLXmGGnnQw1zuAg flMqlGP3gTUFo zrknj581IwCin9vcJZGsq VOwBAlvSLB9I12ei4N3RO GjIHQzDMY4xLS0zN5ghFt nbjogbGVmdDsg taYlaVkzFVhzRKyfN918C LWcuWduEgXppTOzJ6hqhi RFQS2dFobepOE+PHRkIHN 0eWxlPSdwYWRk bW9pJVXsU4t5XsIuIfI5N EwlQ7CyvjO3FVFylQSlZA XylWOWoT5qfjlys5dqsay gIzAwMDAwMDt0 SJk3KIGrcElyQbLdVWO9X kW8GCY2oWXftD6mlVweww obsM3mXjf+RklOOjwvdGQ +BWUzYLB7wPmv PTxmMYDjsB2yEYWfL2p2O cDiOyJ7EGriY6MeomT8NW OnrWHjWIXcdKZKgM8vpju rg9eyzzhmMxAg HJWuFTf0BPr8RPOooXkeY bRtVAK8GpQ1DDJ4vGRngZ 8cwZcqdltbcY1oMbh+TVJ OOjwvdGQ+PHRk YMV5kRprAOgcOVJayC8kH YHoD4z3ZcPvVcW6NBuyX2 SqmnV0WKNlvPSjXSSppBM RcZ3aoazld1lo spniIcEnBROdWZu0CFu1K HZwpMwuYyCzRKC2IsB8LZ R1vGPfqG5hkTvbxftajJ1 wOyc+JWX2EDR5 VS72PI53S4EeGlwacCPpm +PHRhYmxlIHdpZHRoPS eoKOIrYmVaoXetDP4gNk6 yZGVyLWNvbGxh cHN (more content not included)... [facility] Coding Summary HTMLBase 64 XsgqtdqxGUi7rUx+PGhlY WQ+HL3KFKMoE68acHNnrA 9pC0ISRGfJYgkjGZEZIGm LApFoboExAP6bcHWdDUXa IC8+YH9cZQLvMmntmXHbz 0U7yHC0G77qwi3xXQbgiT J3UTSdLdFhkmnrt2gcpTh 6IDcuNmluOyBt DONipU61ZQM5lD32Hw55p GFgmDYdi5qhvIl8HwKfOW MpOMZ7jGkpYVelg4CvMXS qJ73cuCAqk2V6 VGAfuUxhxNKcCsWgxTC8l R9iZEemevmqj0ddvkeaCf s8fx33zMQse5Q7wDM8B7M sgsN5SSAhkVGx YxxxxCMYwR1otujcf5rea bkoXwYrVYLmOSc9KBr0ZB EurJivVmEeXN54CHJ9WDL smgUbL2QrVKKf aCaxEbP4p9Q2Oo6IU2UZN xenG6WCHYIAFUwvoVH+PC 18lh71Z1RhIlkfWek2VOO wQOH6fQN9nK8x SXQyLSlve9Q3rGH1S4Upf eHaiu9lz6tyOHPuJUpcW7 1vvPJsr4E1ZNBupFG0CSB gcDseBfUfiS55 Oyc+FECleEtze3HrNffnl 9mao5dolBe8CbonLSKudj TdjCueLUA1q8UoIj8kQHP knHC5mFD9zV5f PbGeCvR0GFnkK542EkFfm YChUwnnD08xD0DfzUD+PH EjFop5KMYvzStdOZ8aB4S hZGRpbmctbGVm sBloZJ4xQRFiiftfWJKif D0yOTLlY8o2JxZfFeZ9LY ldS8RcEGTjmgjaJt70zZ2 eXqGtAhF5KVru P0GfspG7SWGcoDGxBPxyE NW5C29vd4C6ZMZwUPWyPZ C9mEJ0yQ1wmAsjisejuBX mdDsgdmVydGlj FPjqOYfxI143ZNCshCycO kNvZGluZyBEYXRlOiAgMD cvMTIvMjAyMzwvdGQ+PHR iUKG0gRwsTTKn sBNuOSbuPm7tvZzfzCdmN A4cAOEweeaiLIDcdG3vVZ MduBUwiTdoVQ0wWQAcibh te311YmIlFNM0 QGUdkEMjU0IzvG9jDfAzL RWfVCBrQ1PdxCVsDAbiH6 79BRctTaM3ZUObyoVmO8J sLWFsaWduOiB0 k7R6Lu4Ug2GwdsteT4Bak NVcMfNdNgnmCZj1D5YkOo wvdHI+UW08NIXyOG14AUg 0EBT9kPlxBCdb KLIlT7LawN6eJmTcEOLkO GRkOyc+PHRhYmxlIHdpZH RoPScxMDAlJyBzdHlsZT0 fDc6qDTGdWHJq eCmxjJRxAzFwp3seSKMdI VsuKN8tfMhfX0MmdZU8FA Kib6e9Na87R05gU3BmnBK +IGDfbXZ5lGG4 oF3pUqStOmT7XLptE279C hDorEBnShfog1ivk5cobJ m2WjF7HQZdbjYzrFwvDPB 2t1RgXo20H60t IHdpZHRoPSIxNSUiIHZhb Bnzpf3tbV5hVp6+PGNvbC L5aTU4jZ6pHnWlGzI7KMk rA989WgFwqSLg Qhtaj4gtm2kvvKn2JzBaP QAgyvPbdJuxENT3b9QiFc 23P3VfwDvdn0BfNhm5do2 1tIHzo1S3vSG3 U4OxGPRiacpjaROmbCcwY T9yBHJgbjziNLKbcZ6cUP MnF8j6ElSkQzJ5IDnvF8K ldyD3QRHvmOGb WVYuqBCOtK1lopocq1nzw yobEbPjFUGdNCh6BTp9IN QorOelBqNbWED4PzS0QXG 9cLLwxO2uiJif uxivzJ9lQft+UYG1tTMmg EYIQW3pZrleaUX+PHRkIH S4bXaqTYsjWIFnhO6eBRB aL5g9IkByTcQ6 AZljI0QrcbJ7WIRctJLrC XOwjFTDsU2vkoyvb6usbi mxZbZmHHPlNXo2PUi7NAQ saWduOiBsZWZ0 DdI0UZD0jEBnoI4htMzll bqafY5aKcf+QmlydGggRG E1BLf3Q1CtKfm7YMWcmIh fXU6ueBEbUKmy Tq1syPykuJxxJG6rJQSxo fzzm164RgTec1gmUWPsyM BzUMimZHM0H94kz0W5JJH cQRVfONV3tID6 iD5ldRbqtitjuWRplWxha tCkbJmzZWbiJRgoE840DL VleOfgUjZoCWk4X6EvIzx 6WCAvxNewKV6j pABjTMnkUm6rpYrlnPfxP C2yKWHlndztr653MqFhx6 mbCCApeMPmCFylUDF9G90 ds3B1YEShQGIp PPK8rKK2yL6tuTuakifuu GVmdDsgdmVydGljYWwtYW slC588INSiwAceLyNtrKh 2U1RbMvm4BKHz zWpeJX9brVYbANmtTg8jl NodfZmmSG0kEVEyifrhk9 38MxTbl5nmJHLxuNDjLOa pUHF2X70ww3B6 KLCqWCRyHQR9tIE6oB0yi GlnbjogbGVmdDsgdmVydG ebZIoyBOhdZ504TNQonIg nPlBhdGllbnQg BZesFQa8D9KdWtkwzHX+P O34FIAlWJ20hVVxpWNzs1 slmGz4NiLsKZXjLDU5vRn yIMort1WnAEQn J38lsTCcc8S1VGNecMgfk KOvOkJwwKL8kP5dVYpztc nlx3mdplvvYlkvl3betl4 9eC95Q97nXEdy ZHRoPSIzMCUiIHZhbGlnb t8pnG5sJu6+XRYnpGB2qX B6zR1zUQSmJeO7GLsvD53 9InRvcCIvPjxj q8lzd8vvnGf8SlS9TBScz nVdeHgsZRD8w1MmNi01Z4 9sIHdpZHRoPSIyMCUiIHZ fmLzbre8ioI4r Ii8+OOVncCN3bLP0nL8pK kZkDyQ4FNipV673EqZwmE OfObksP34mT9MjwCE+PHR xVml4JOObkNkk GW1csBAfCPxxRg9tLQZ9Q cMjHwLrGEauB3ZgCAKaky jmlgiadRU5VHMbAXIfkU2 7Hx1goGxvQZNh yLONaE2hzbuja0wtyfpaS eJpMCBaBOo6LVa2VCVziR ecIoImDAO5BsQ1JVV2eBV onI8ucXzkizsk sZ5cX4WkSNTyuecfMb80p B5wLuYxDkD9EWwuSrf+UE SIO9WmHOKBSpBSXEg8R7R rCdn8PLHfuYzy DT5rmGPgOUscDo6ykWgiq NwbYX9gXJNbtdjzRYIgeT 1gSWDysVWdmRynFR4yHHI frsujq685EuGk WZG4HYXcjFZsV4TmeG1vD hRaJKYpACOkU0MyqLEaTX lmQ498SEqpEzY1XDWyhfO qW8XwUOQpqGlz UgI9g5D0Pa7sXI6yUR1hW SurNX62ZT20uQRum4F7cA F4W6XpDBMdayiuqnfesTR 0NWNuXIJwcC23 lWVpXPfxCr0gp5V3g261J ONoYQSyzD47Sq5ujEhuYK RflUROjG2qaxdnm3yyzxa gIzAwMDAwMDt0 ZIh1IXTpqTndGcYuPLX2K sP5LOX9fBQlrN1xfYqwbc aniS8rNze+NDIgWWVhcnM 6E7XvAyq7SCFk xHgxBI7bwFRoLIznUc5kk PskeHfnRS9qFKJgibcbXE TnpG0mBZQhqXOuoSmaGG2 oAUUrgxicn466 IzXrWWE0PCNtlKRqE1Ovo J8uYgSnACIoDLXoB1ZqpA UlBPxrW602KKagUbU7HHS cozUzD4QjQOGx jDmdQzQ0h4Z0Cf4AHP1ZB JL4E6OgPuf6OUMteBulFW 8mmNGiOZzlYo9oeUrikBh hQT7gGYZdfpef OAUekQ9cBXXidXXvzLlxU Q7kXVSwgwedj070YmPvSK H2JKFpjJJrG0GphT1lOpO wELTeKVUoU7Rr iDZaDDmfF987ERnqZhZ7W OOfdwJsY6CpZTBrxMviDr T6v0D9Cl6GxMRvT0CpV7b 4C5FaYenuxAD+ NH19QMPrJN69yCHyrEXzu 2rthGc8GmCyGGPsREV4eJ roXNkey0SjOXVtV72igKR mp7N9ACHfbEnt sFMjQgCuuTJ6gG8rRFcfu ypbf0nyzccdGdabf1gagz 41xO72T08nMHroULCzTKF zMCUiIHZhbGln is4bxC0sWq9+NGNxtMK6n LH0qF3qLgJqSsH3UWsyD6 08RbZuoUAaItitk0wqq6z owGv1ZsRxKTTa guAefKlyBMP0p9NmWw01G 29sIHdpZHRoPSIyMCUiIH FzgVzxut2uaS7lBw3+PC9 pf1ehhi42sU35 dHI+MTXmNWD9qNakMTcgT DKgkN9kBJzkLmJ4WQIuGd FjuK92nUVyPXrwZl5nxJi vzAvrPU8zKYGj nlleq748ClZsi2ldOWRmw XWeUIjlWYH3X09pm1P1QR TzCXNmUTJ8wIS9gZ3wjJb nbjogbGVmdDsg cyXwsNxqTZuoHJjvQ968U UBhtGowZpBsoOAaN6srfg TWXD0wXlieiQM+PHRkIHN 0eWxlPSdwYWRk iB1eANSgT2i6BdOoAuN4G ZjpF6EiyiF1CQVnnOLcFW WbjRAHrG0ozyuoq2azxcb gIzAwMDAwMDt0 DKt8BTWyxZkeMwCuTEU1Q qN8KJW4tAZknE1zzVskgf tmwO1rDvm+RklOOjwvdGQ +ZRQoCSQ7eKgz VEcnKVIazT7uZWIwD0x2E uTxNcU0MGxxT6UmjjB7KE NbjKVjNGQbfQBFuQ0xoea cn7rvmlmpTzRc YVPrAKb8JWp7IOZwhFdvB rVbXSN2YiD1AGJ9tQQnjG 2woBlymhhwgM3uJqs+TVJ OOjwvdGQ+PHRk KYT5fYmxTWxjQYHqoP6rN HDkZ1g8DpQtDaX7AMbgF2 HcrhH7NZRyvUCfVCKtlQM ZmL3secstv1gw atlqXuScAHSrVBw3MTy4N MCdlQguVuIgYZX3JhE5DJ W0wYKbnU6cvBlojsimgX4 wOyc+XNG8VSD9 UF89AB54Y2HcGpofcRGay +PHRhYmxlIHdpZHRoPS ngILUoNeYftGelRE5uNw1 yZGVyLWNvbGxh cHN (more content not included)... Normal [facility] C Anaerobicon 11-28-2022 C Anaerobic No anaerobic growth at 7 Days Normal [facility] Comment on above: Performed By: #### 7 [id number] ####[facility] (DEFAULT)[address] [place] [address] ED Note-Nursingon 11-21-2022 ED Note-Nursing Patient calls and states she was given a prescription for Tramadol and she had requested Toradol for pain last night. Patient states she is allergic to Tramadol but does not know what type of reaction she has to this medication. Tramadol was added to her allergy list for future visits. [facility] .Auto Diff 1on 11-20-2022 Auto [place] % 6 % Normal 1-12 [facility] Comment on above: Performed By: #### 7 [id number] ####[facility] (DEFAULT)[address] [place] [address] Baso Abs# 0.1 x10 Normal 0.0-0.2 [facility] Comment on above: Performed By: #### 7 [id number] ####[facility] (DEFAULT)[address] [place] [address] Basophils/100 WBC (Bld) 0.5 % Normal 0.2-2.0 [facility] Comment on above: Performed By: #### 7 [id number] ####[facility] (DEFAULT)[address] [place] [address] 37993 Eos Abs# 0.1 x10 Normal 0.0-0.4 [facility] Comment on above: Performed By: #### 7 [id number] ####[facility] (DEFAULT)[address] [place] [address] Eosinophils/100 WBC (Bld) 1.2 % Normal 0.9-4.0 [facility] Comment on above: Performed By: #### 7 [id number], [id number], [id number] ####[facility] (DEFAULT)[address] [place] [address] 10750 Lymph Abs# 2.4 x10 Normal 1.3-2.9 [facility] Comment on above: Performed By: #### 7 704589, [id number], 84336356, [id number] ####[facility] (DEFAULT)[address] [place] [address] 86469 Lymphocytes/100 WBC (Bld) 19 % Normal 14-48 [facility] Comment on above: Performed By: #### 7 192387, [id number], 36248705, [id number] ####[facility] (DEFAULT)[address] [place] [address] [place] Abs# 0.8 x10 Normal 0.0-0.8 [facility] Comment on above: Performed By: #### 7 424688, [id number], 36525155, [id number] ####[facility] (DEFAULT)[address] [place] [address] Neut Abs# 8.9 x10 Normal 1.5-9.2 [facility] Comment on above: Performed By: #### 7 786451, [id number], 67000328, [id number] ####[facility] (DEFAULT)[address] [place] [address] 31534 Neutrophils/100 WBC (Bld) 72 % Normal 44-88 [facility] Comment on above: Performed By: #### 7 591346, [id number], 66499051, [id number] ####[facility] (DEFAULT)[address] [place] [address] 73870 CBC w/ Auto Diffon 3 Erythrocyte distribution width (RBC) [Ratio] 14.7 % Normal 11.5-15.0 [facility] Comment on above: Performed By: #### 7 075108, 5550840355, 34710614, [id number] ####[facility] (DEFAULT)[address] [place] [address] Hematocrit (Bld) [Volume fraction] 40.2 % Normal 33.7-40.4 [facility] Comment on above: Performed By: #### 7 052838, [id number], 65137178, [id number] ####[facility] (DEFAULT)[address] [place] [address] Hemoglobin (Bld) [Mass/Vol] 13.4 g/dL Normal 11.3-15.9 [facility] Comment on above: Performed By: #### 7 863688, [id number], 36585274, [id number] ####[facility] (DEFAULT)[address] [place] [address] Man Diff? Auto Invalid Interpretation Code [facility] Comment on above: Performed By: #### 7 603437, [id number], 66212158, [id number] ####[facility] (DEFAULT)[address] [place] [address] 24402 MCH (RBC) [Entitic mass] 31 pg Normal 24-34 [facility] Comment on above: Performed By: #### 7 655389, [id number], 16854622, [id number] ####[facility] (DEFAULT)[address] [place] [address] 05015 MCHC (RBC) [Mass/Vol] 33 g/dL Normal 26-37 [facility] Comment on above: Performed By: #### 7 510438, [id number], 67735451, 2870832572 ####[facility] (DEFAULT)[address] [place] [address] 49864 MCV (RBC) [Entitic vol] 93 fL Normal 81-100 [facility] Comment on above: Performed By: #### 7 046703, [id number], 10376102, 3165958716 ####[facility] (DEFAULT)[address] [place] [address] 21283 Platelet 234 x10 Normal 138-427 [facility] Comment on above: Performed By: #### 7 090972, [id number], 53994828, 7370468567 ####[facility] (DEFAULT)[address] [place] [address] Platelet mean volume (Bld) [Entitic vol] 8.7 fL Normal 6.3-10.2 [facility] Comment on above: Performed By: #### 7 388234, 1365862872, 12674956, 9106021438 ####[facility] (DEFAULT)[address] [place] [address] RBC 4.32 x10 Normal 3.70-5.30 [facility] Comment on above: Performed By: #### 7 195723, [id number], 15500000, [id number] ####[facility] (DEFAULT)[address] [place] [address] 28676 WBC 12.3 x10 High 3.5-10.5 [facility] Comment on above: Performed By: #### 7 022587, [id number], 58189248, [id number] ####[facility] (DEFAULT)[address] [place] [address] 65705 CMP Standardon 11-20-2022 eGFR Non AA >60 Invalid Interpretation Code [facility] Comment on above: Performed By: #### 7 195411, [id number], 22096604, 3052196510 ####[facility] (DEFAULT)[address] [place] [address] 50452 eGFR AA >60 Invalid Interpretation Code [facility] Comment on above: Performed By: #### 7 652470, [id number], 75341444, [id number] ####[facility] (DEFAULT)[address] [place] [address] 01025 Albumin [Mass/Vol] 3.7 g/dL Normal 3.5-5.0 [facility] Comment on above: Performed By: #### 7 694441, [id number], 68299824, [id number] ####[facility] (DEFAULT)[address] [place] [address] 86049 Albumin/Globulin [Mass ratio] 0.8 {ratio} Low 1.4-2.6 [facility] Comment on above: Performed By: #### 7 574969, 0989713811, 60045667, 8775689518 ####[facility] (DEFAULT)[address] [place] [address] 47856 Alk Phos 69 IU/L Normal 32-91 [facility] Comment on above: Performed By: #### 7 087121, 4575926332, 79972624, 3507585380 ####[facility] (DEFAULT)[address] [place] [address] 52737 ALT [Catalytic activity/Vol] 30.0 U/L Normal 14.0-54.0 [facility] Comment on above: Performed By: #### 7 942198, 6951902745, 85940761, 2156275266 ####[facility] (DEFAULT)[address] [place] [address] 28059 Anion gap [Moles/Vol] 10.5 mmol/L Normal 5.0-19.0 [facility] Comment on above: Performed By: #### 7 431689, 6961039320, 61513766, 3832731518 ####[facility] (DEFAULT)[address] [place] [address] 90495 AST [Catalytic activity/Vol] 26 U/L Normal 15-41 [facility] Comment on above: Performed By: #### 7 259012, 7515814543, 68668867, 0817488350 ####[facility] (DEFAULT)[address] [place] [address] 92454 Bili Total 0.5 mg/dL Normal 0.3-1.2 [facility] Comment on above: Performed By: #### 7 129536, [id number], 08092646, 5707792100 ####[facility] (DEFAULT)[address] [place] [address] 92831 Calcium [Mass/Vol] 8.9 mg/dL Normal 8.9-10.3 [facility] Comment on above: Performed By: #### 7 330577, 2380662651, 03793466, 7900626479 ####[facility] (DEFAULT)[address] [place] [address] 14067 Chloride [Moles/Vol] 107 mmol/L Normal 101-111 [facility] Comment on above: Performed By: #### 7 854982, 9216524101, 06565618, 3719759923 ####[facility] (DEFAULT)[address] [place] [address] 39817 CO2 [Moles/Vol] 27 mmol/L Normal 21-32 [facility] Comment on above: Performed By: #### 7 726077, 4749156065, 49888325, 8743073318 ####[facility] (DEFAULT)[address] [place] [address] 71746 Creatinine [Mass/Vol] 0.78 mg/dL Normal 0.60-1.30 [facility] Comment on above: Performed By: #### 7 538722, 9664535565, 45313236, 1970037253 ####[facility] (DEFAULT)[address] [place] [address] 74561 Globulin (S) [Mass/Vol] 4.3 g/dL Normal 1.5-4.3 [facility] Comment on above: Performed By: #### 7 402706, 0863386814, 17799795, 5904525581 ####[facility] (DEFAULT)[address] [place] [address] 80503 Glucose [Mass/Vol] 114.0 mg/dL Normal 74.0-118.0 [facility] Comment on above: Performed By: #### 7 379521, 4199745321, 66849714, 2892290249 ####[facility] (DEFAULT)[address] [place] [address] 73986 Osmolality 284 mOsm/L Invalid Interpretation Code [facility] Comment on above: Performed By: #### 7 161886, [id number], 93196802, [id number] ####[facility] (DEFAULT)[address] [place] [address] 01113 Potassium [Moles/Vol] 3.5 mmol/L Low 3.6-5.1 [facility] Comment on above: Performed By: #### 7 777624, 3727427724, 19850588, 9947487172 ####[facility] (DEFAULT)[address] [place] [address] 19510 Protein [Mass/Vol] 8.0 g/dL Normal 6.5-8.1 [facility] Comment on above: Performed By: #### 7 115638, 0964393959, 63483992, 7220894118 ####[facility] (DEFAULT)[address] [place] [address] 76341 Sodium [Moles/Vol] 141.0 mmol/L Normal 136.0-144.0 [facility] Comment on above: Performed By: #### 7 546769, 4041583233, 34298256, 9864404872 ####[facility] (DEFAULT)[address] [place] [address] 19202 Urea nitrogen [Mass/Vol] 18 mg/dL Normal 8-26 [facility] Comment on above: Performed By: #### 7 743236, [id number], 70427350, 3450601550 ####[facility] (DEFAULT)[address] [place] [address] 85864 Urea nitrogen/Creatinine [Mass ratio] 23.0 mg/mg High 4.6-16.2 [facility] Comment on above: Performed By: #### 7 002482, [id number], 08272038, [id number] ####[facility] (DEFAULT)[address] [place] [address] 09602 ED Clinical Summaryon 2022 ED Clinical Summary [facility] - Emergency Department [address] [place] [address]56 ED Clinical Summary PERSON INFORMATION Name: TRACEY SANCHEZ Age: 42 Years Sex: FEMALE : 1980 MRN: Acct#: Visit Reason: Abscess; Edema - Leg; ABSCESS-GROIN/LFT THIGH, BILATERAL LEG SWELLING Arrival: 11/20/2022 19:43:37 Discharge: 11/20/2022 21:53:00 LOS: 000 02:10 Check In: 11/20/2022 19:43:37 Checkout:11/20/2022 21:53:00 Address: [address] [place] [address] PCP: Provider, None PROVIDER INFORMATION Provider Role Assigned Unassigned Shandra Can PA-C ED PA 11/20/2022 19:49:39 Ade Cook [employer] Nurse 11/20/2022 20:16:21 Teri RN, Starla ED Nurse 11/20/2022 21:22:01 VITALS INFORMATION Vital [...] Home PATIENT EDUCATION INFORMATION Instructions: Tinea Versicolor, [id number]; Wound Packing; Skin Abscess, Bomh-ph-[id number] Follow-Up: With: Address: When: Follow up with primary care provider Within 3 to 5 days DIAGNOSIS: 1:Abscess of groin, right; 2:Abscess of left groin; 3:Tinea versicolor; 4:Elevated BP without diagnosis of hypertension Patient Understands: Yes - Patient/family/caregi sanjana verbalizes understanding of instructions given Comment: Normal [facility] ED Patient Summaryon 023 ED Patient Summary [facility] - Emergency Department [address] [place], [place] [id number] PATIENT DISCHARGE INSTRUCTIONS Patient Information Name: TRACEY SANCHEZ Age: 42 Years Date of : 1980 Reason For Visit: Abscess; Edema - Leg; ABSCESS-GROIN/LFT THIGH, BILATERAL LEG SWELLING Arrival Time: 11/20/2022 19:43:37 Primary Care Physician: Provider, None Attending Physician: Jaime Saldaña DO Comment: Visit Diagnosis: Diagnoses This Visit Abscess ([id number]) Abscess of groin, right (L02.214) Abscess of left groin (L02.214) Edema - Leg ([id number] eg) Elevated BP without diagnosis of hypertension (R03.0) Tinea versicolor (B36.0) The Pharmacy at [facility] is open Monday through Monday from [...] alcohol and/or drug addiction problems; contact the [facility] 12/12 Crisis Hotline -Text [id number] wy [phone]. If you received any narcotics, sedation, or [...] and treatment you received today in the [facility] Emergency Department were for an urgent problem and are not intended as complete care. It is important for you to follow up with a doctor, nurse practitioner, or physician?s catering assistant for ongoing care. If your symptoms [...] so we can reach you if necessary. [facility] Emergency Department has provided you with a complete list of medications post discharge. Please inform your sock liner/provider of your visit and for further instruction on these medications. Any specific questions regarding your chronic medications and dosages should be discussed with your primary care physician(s) and/or pharmacist. New Medications [facility][id number] [place], [place] [id number], [phone] ciprofloxacin (Cipro 500 mg oral tablet) 1 [...] or d (more content not included)... Normal [facility] Extra Redon 11-20-2022 Tube Collected Yes Invalid Interpretation Code [facility] Comment on above: Performed By: #### [id number] ####[facility] (DEFAULT)[address] [place] [address] Wound Cultureon 11-20-2022 Wound Culture Heavy growth of Staphylococcus epidermidis and Moderate growth of Corynebacterium species diptheroids No LAURA performed on this organism Gram Negative Cocci 1+ Gram Positive Cocci 1+ Gram Negative Rods 1+ White Blood Cells 2+ Normal [facility] Comment on above: Performed By: #### [id number] ####[facility] (DEFAULT)[address] [place] [address] GLYCOHEMOGLOBIN A1Con 2021 ADA RECOMMENDATION SEE BELOW Normal [facility] Comment on above: Result Comment: ADA RECOMMENDED LIMIT 4.0 - 6.0 ADA THERAPEUTIC TARGET < 7.0 ACTION SUGGESTED > 7.0 Performed By: #### A 1C #### [facility] [address] [place] [address] Dr. Pat Dale Glucose [Mass/Vol] 126 mg/dL Normal [facility] Comment on above: Performed By: #### A 1C #### [facility] [address] [place] [address] Dr. Pat Dale HbA1c (Bld) [Mass fraction] 6.0 % Normal 4.5-6.2 [facility] Comment on above: Performed By: #### A 1C #### [facility] [address] [place] [address] Dr. Pat Dale PROF CHEM 8 (BAS METB)on Anion gap [Moles/Vol] 11.9 mmol/L Normal [facility] Comment on above: Performed By: #### B MP #### [facility] [address] [place] [address] Dr. Pat Dale Calcium [Mass/Vol] 9.5 mg/dL Normal 8.5-10.1 [facility] Comment on above: Performed By: #### B MP #### [facility] [address] [place] [address] Dr. Pat Dale Chloride [Moles/Vol] 104 mmol/L Normal 98-107 [facility] Comment on above: Performed By: #### B MP #### [facility] [address] [place] [address] Dr. Pat Dale CO2 [Moles/Vol] 25.9 mmol/L Normal 21.0-32.0 [facility] Comment on above: Performed By: #### B MP #### [facility] [address] [address] [address] Pat Dale Creatinine [Mass/Vol] 0.80 mg/dL Normal 0.55-1.02 [facility] Comment on above: Performed By: #### B MP #### [facility] [address] [address] [address] Pat Dale EGFR-AF TRISTANIAN >60 Normal >=60 [facility] Comment on above: Performed By: #### B MP #### [facility] [address] [address] [address] Pat Dale EGFR-NON AF TRISTANIAN >60 Normal >=60 [facility] Comment on above: Performed By: #### B MP #### [facility] [address] [address] [address] Pat Dale Glucose [Mass/Vol] 108 mg/dL Critically high 74-106 T [facility] [place] Comment on above: Performed By: #### B MP #### [facility] [address] [place] [address] Dr. Pat Dale Potassium [Moles/Vol] 3.8 mmol/L Normal 3.5-5.1 [facility] Comment on above: Performed By: #### B MP #### [facility] [address] [address] [address] Pat Dale Sodium [Moles/Vol] 138 mmol/L Normal 136-145 [facility] Comment on above: Performed By: #### B MP #### [facility] [address] [address] [address] Pat Dale Urea nitrogen [Mass/Vol] 14.0 mg/dL Normal 7.0-18.0 [facility] Comment on above: Performed By: #### B MP #### [facility] [address] [address] [address] aPt Dale Urea nitrogen/Creatinine [Mass ratio] 17.5 mg/mg Normal [facility] Comment on above: Performed By: #### B MP #### [facility] [address] [place] [address] Dr. Pat Dale CULTURE WOUNDon 02-09-2022 CULTURE WOUND Culture Observations : Light growth of NORMAL SKIN BÁRBARA. Culture Observations: NO GROWTH OF ANAEROBES AT 72 HOURS. Normal [facility] Comment on above: Performed By: #### W OUNDCX #### [facility] [address] [place] [address] Dr. Pat Dale *ANAEROBIC CULTUREon 022 *ANAEROBIC CULTURE Clinical Report: (C) Specimen/Source: DRAINAGE/BOIL Collected: 12/21/2021 09:50 Status: Final Last Updated: 12/24/2021 07:45 (1) No: Do not add to previous draw ISO (Final) Prevotella bivia (Bacteroides) +Beta-Lactamase Positive Result changed by ALLIE on 12/24/2021 07:45. The previous result was: ISO (Final) Prevotella bivia (Bacteroides) Normal [facility] Comment on above: Order Comment: No: D o not add to previous draw Performed By: #### 3 0312 #### [facility] [address] *WOUND CULTUREon 12-21-2021 *WOUND CULTURE Clinical Report: (D) Specimen/Source: WOUND/OTHER Collected: 12/21/2021 09:50 Status: Final Last Updated: 12/22/2021 11:08 GRAM (Final) Moderate Polys Moderate Gram Positive Bacilli Rare Gram Positive Cocci In Pairs ISO (Final) Moderate Growth Skin Bárbara Normal [facility] Comment on above: Performed By: #### 3 [id number] #### [facility] [address] WOUND CULTUREon 08-24-2021 Aerobic Culture Final report Normal [facility] Comment on above: Performed By: #### C XWND #### [facility] [address] [place] [address] Dr. Pat Dale Anaerobic Culture Final report Abnormal [facility] Comment on above: Performed By: #### C XWND #### [facility] [address] [place], [place] [address] Dr. Pat Dale Result 1 Mixed skin bárbara Normal The [facility] Comment on above: Performed By: #### C XWND #### [facility] [address] [place], [place] [address] Dr. Pat Dale Result 1 Cutibacterium acnes Abnormal [facility] Comment on above: Result Comment: Ariane longo growth Performed By: #### C XWND #### [facility] [address] [place], [place] [address] Dr. Pat Dale Consent for Procedure/Surger yon 02-06-2020 Consent for Procedure/Surgery [id number]:127 Normal [facility] General Surgery Office/Clini c Noteon 02-06-2020 General Surgery Office/Clinic Note Chief Complaint re-evaluate rectal bleeding [facility] Staff 40 year old female presents to [...] and colonoscopy in [address] Rodriguez, josel. no fmhx of GI malignancy or IBD. [...] (05/22/2002), Hist (more content not included)... Normal [facility] Comment on above: Result Comment: Elec tronically Signed By: KAI FAY, Jaime Leavitt\Date and Time Signed: 02/06/20 16:00 EDT Ambulatory Clinical Summaryo n 02-04-2020 Ambulatory Clinical Summary {[id number]}CD:[id number] Normal [facility] Facesheeton 11-19-2019 Facesheet [id number]:127 Normal [facility] Ambulatory Clinical Summaryo n 10-23-2019 Ambulatory Clinical Summary {[id number]}CD:[id number] Normal [facility] GENETICS MISCELLANEOUS DNA T ESTon 07-27-2017 GENETICS RESULT SEE ELECTRONIC REPOR T IN EPIC OR CALL GENETICS AT [phone] Normal [facility] Comment on above: Result Comment: [facility],[address] [place], [place] [address] Performed By: #### G MISC1 ####[facility] [address] TEST : Draw 1 10 ml purple (EDTA) for genetic testing for cancer susceptibility to be Normal [facility] Comment on above: Result Comment: sent to [email or web address] labs Performed By: #### G MISC1 ####[facility] [address] Encounters Encounter Date Encounter Type Care Provider Facility Start: 11-10-2023 End: 11-10-2023 ambulatory [facility] Start: 09-20-2023 End: 09-20-[address] [facility] Start: 09-01-2023 End: 09-01-2023 [facility]: 06-16-2023 End: 06-16-2023 Emergency department patient visit SUSANNE STAPLETON [facility] Start: 06-13-2023 End: 06-13-2023 Emergency department patient visit NO PCP NO PCP [facility] Start: 02-22-2023 End: 02-22-2023 Emergency department patient visit Misbah Murray Facility:[facility] Start: 01-24-2023 End: 01-24-2023 Emergency department patient visit KVNG ESPOSITO [facility] Start: 12-07-2022 End: 12-07-2022 Emergency department patient visit Elias Huff Facility:[facility] Start: 12-03-2022 End: 12-03-2022 Emergency department patient visit KVNG ESPOSITO [facility] Start: 11-20-2022 End: 11-20-2022 Emergency department patient visit None Provider Facility:[facility] Start: 05-23-2022 End: 05-23-2022 ambulatory [employer]IP[employer] APPRENTICE EMMIE WALTERS Facility:[facility] Start: 02-22-2022 End: 02-23-2022 ambulatory STRIPPER APPRENTICE EMMIE WALTERS Facility:[facility] Start: 02-09-2022 End: 02-09-2022 ambulatory STRIPPER APPRENTICE EMMIE WALTERS Facility:[facility] Start: 12-21-2021 End: 12-21-2021 Emergency department patient visit RODDY POWELL Facility:[facility] Start: 08-18-2021 End: 08-18-2021 ambulatory DELFIN WALTERS Facility:[facility] Start: 07-27-2017 End: 07-28-2017 Ambulatory CONI SERRANO [facility] Payers Date Payer Category Payer Unknown [id number] 2.16.8 [id number] 1980 Unknown [id number] 2.16.84 [id number] 1980 Unknown [id number] 2.16.84 [id number] 1980 Unknown [id number] 2.16.84 [id number] 1980 Unknown [id number] 2.16.84 [id number] 1980 Unknown [id number] 2.16.8 40.1.284127.3.579.2.176 1980 Unknown [id number] 2.16.8 [id number] 1980 Unknown [id number] 2.16.8 [id number] 1980 Unknown [id number] 2.16.8 [id number] 1980 Unknown [id number] 2.16.8 [id number] 1980 Unknown [id number] 2.16.8 40.1.270474.3.579.2.1286 1980 Unknown [id number] 2.16.8 [id number] 1980 Unknown [id number] 2.16.8 [id number] 1959 Unknown [id number] Progress note 11-10-2023 Note Date & Type Note Facility 11-10-2023 Note [facility] Note Reason for cardiology FU: Patient here c/o increased edema. She is scheduled for echo 11/29/2023. Chief Complaint: Legs edema HPI: Tracey Sanchez is a 43 y.o. female, patient states that the Lasix which was started last visit did not help with the legs edema therefore she has been taking her mother's Bumex 4 mg daily and that helped a lot. She states that her blood pressure is always high due to pains and aches for different reasons. She states that she declined to be on opioid for pain management and she is using only herbal supplement and nonsteroidal anti-inflammatory drug. She's been diagnosed with DAGOBERTO but is noncompliant with cpap therapy. She denies chest pain or shortness of breath currently. She denies orthopnea or paroxysmal nocturnal dyspnea or dizziness or palpitations. She states that she follows low-salt diet but she drinks a lot of water. Her echo is scheduled for 11/29/2023 The patient states that she is very active she does a lot of swimming, water exercises, walking and Pilates. She states that she eats healthy. ROS: All systems were reviewed and the were negative except for the positive findings noted above in the history Past Medical History She has a past [...] Family History No family history on file. Allergies Aspirin, Fluoxetine, Gabapentin, Sertraline, Sulfamethoxazole, and Penicillins Medications Current Outpatient Medications: furosemide (Lasix) 20 mg tablet, Take 1 tablet (20 mg) by mouth once daily as directed., Disp: 90 tablet, Rfl: 3 ketorolac (Toradol) 10 mg tablet, take 1 tablet by mouth every 6 hours once daily if needed for pain, Disp: , Rfl: Last Recorded Vitals Visit Vitals Smoking Status Every Day Physical Examination: GENERAL: alert and oriented x3, well developed, in no acute distress. HEAD: atraumatic, normocephalic. EYES: WILLIAM, EOMI. NECK: trachea midline, no JVD present, no carotid bruits present. CARDIAC: S1, S2 present. RRR. No murmur, rubs, or gallops. RESPIRATORY: CTAB, no increased effort of breathing, no rales, rhonchi, or wheezing. ABDOMEN: soft, nontender, nondistended. EXTREMITIES: Trace edema, bilateral varicose veins noted. Mild skin discoloration noted at the lower portion of the legs NEURO: strength/sensation equal and symmetric in bilateral upper and lower extremities. PSYCH: appropriate mood, affect, and judgement. Labs: Last Images: Echo 11/01/2018 Assessment and Plan: Legs edema ad shortness of breath most likely due to combination of possible diastolic heart failure, obesity, and possibly venous insufficiency. She did well on Bumex Hypertension. Blood pressure is elevated today. She has been taking Bumex 2 to 4 mg daily. Morbid obesity, BMI 51.5 kg/m??? History of sleep apnea however she does not wear CPAP History of fibromyalgia, rheumatoid arthritis, spinal stenosis and spinal disc disease Plan: Continue Bumex. I prescribed 2 mg twice daily Will check BMP and BNP next week and depends on that we will decide if she should continue the same dose I wanted to start the patient on Aldactone 50 mg daily in addition to Bumex for control of blood pressure however the patient absolutely declined any blood pressure medications. She was very abrupt about that. She is scheduled for to have an echo in November 29, 2023. If she continues to have legs edema should consider venous insufficiency study Patient was advised regarding following low-salt diet and to restrict her fluid intake not to exceed 2 L/day. She is currently drinking about 4 gallons a day. Also she was advised to check her weight daily and bring the log with her next visit. I also asked her to check her blood pressure daily and bring the log with her to the next visit The patient was advised regarding the importance of losing weight by following low calorie low-carb diet. She was advised to continue exercising. I will arrange for her to follow-up with the Dr. Meyers in 1 week after the echo test Heena Blankenship MD,[facility] Progress note 09-20-2023 Note Date & Type Note Facility 09-20-2023 Note Cardiology Clinic No te Chief Complaint: lower extremity edema HPI: Tracey Sanchez is a 43 y.o. female With a [...] or concerns. Beti Echavarria MD Interventional Cardiology [facility] Clinical Note 02-22-2023 Note Date & Type [...] Keep all follow-up visits. Medicines ? Take byqm-twb-rqubzlc and prescription medicines only as told by [...] Get help right (more content not included)... [facility] Clinical Note 12-07-2022 Note Date & Type [...] these instructions at home: Medicines ? Take wzjk-wrn-sbrjdil and prescription medicines only as told by [...] cannot use soap and water, use hand printed circuit boards plasma etcher. ? Check your abscess every day for signs that the infection is getting worse. Check for: ? More redness, swelling, or pain. ? More fluid or blood. ? Warmth. ? More pus or a bad smell. General instructions ? To avoid spreading the infection: ? Do not share personal care items, towels, or hot tubs with others. ? Avoid making swgp-bq-bjyd contact with other people. ? Keep all [...] provider. Document Revised: 02/14/2022 Document Reviewed: 02/14/2022 [employer] Patient Education ? 2022 [employer]. Orthopedics Acute Back Pain, Adult Acute back [...] Managing pain, stiffness, and swelling ? Take xqfj-nib-qdwzcnv and prescription medicines only as told by [...] the heat so (more content not included)... [facility] Clinical Note 12-07-2022 Note Date & Type Note Facility 12-07-[address] Huff t o bedside for I&D of right [...] care communicated to patient by Dr. Huff. [facility] Clinical Note 11-20-2022 Note Date & Type [...] The rash may have: ? Patches of caotes or pink spots (on light skin). ? [...] affected skin during showers or baths. ? Umut-koj-jhspsmk medicated skin cream, lotion, or soaps. ? Prescription antifungal medicine. This may include cream or pills. ? Medicine to help your itching. Follow these instructions at home: ? Use pnot-kpp-ewsosws and prescription medicines only as told by [...] does not cause other problems. ? Use xyqz-btw-xmauazf and prescription medicines only as told by your doctor. ? If the infection is treated, it will probably go away in a few weeks. This information is not intended to replace advice given to you by your health care provider. Make sure you discuss any questions you have with your health care provider. Document Revised: 07/27/2021 Document Reviewed: 07/27/2021 [employer] Patient Education ? 2022 [employer] Wound Packing Wound packing usually involves [...] and water are not available, use hand printed circuit boards plasma etcher. 4. Put a clean paper towel on the counter. 5. Put a clean bowl on the towel. Only touch the outside of the bowl when handling it. 6. Pour the cleansing or wetting solution that your health care provider tells you to use into the bowl. 7. Select and cut your packing material to fit the size of (more content not included)... [facility] Summary Purpose Family History No Family History [...] section and content) DATE CREATED AUTHOR 11/10/2017 [facility] DATE CREATED AUTHOR AUTHOR'S ORGANIZ ATION 10/15/2020 [facility] DATE CREATED AUTHOR AUTHOR'S ORGANIZ ATION 12/29/2021 [facility] DATE CREATED AUTHOR AUTHOR'S ORGANIZ ATION 05/24/2022 [facility] DATE CREATED AUTHOR AUTHOR'S ORGANIZ ATION 01/24/2023 [facility] DATE CREATED AUTHOR AUTHOR'S ORGANIZ ATION 03/03/2023 [facility] DATE CREATED AUTHOR AUTHOR'S ORGANIZ ATION 06/16/2023 [facility] DATE CREATED AUTHOR AUTHOR'S ORGANIZ ATION 09/02/2023 Sarah boateng DATE CREATED AUTHOR AUTHOR'S TAMI SHAH 11/11/2023 [facility] FOR RECORDS PERTAINING TO PATIENTS WHO ARE [...] BE BASED ON THE PRIMARY CLINICAL RECORDS. [facility] [employer] provides no warranty or guarantee of the accuracy or completeness of information in this document.
--- NOTE | 2023-12-05 10:44 | XR_ITS ---
The [address] [address] Patient Name: GONZALO LARA MRN: [id number] date: 1980 Sex: F Assigned Patient Location: [facility] Current Patient Location: Accession/Order Number: [id number] Exam Date: 12/05/2023 10:38 Report Date: 12/06/2023 08:01 At the request of: CARLITOS BARTLETT Procedure: XR knee RT 3V PROCEDURE: XR knee RT 3V HISTORY: Right Chronic Knee Pain M25.561 COMPARISON: None. FINDINGS: BONES:Slight narrowing of the medial joint space. Small separate, corticated appearing ossification cephalad to the medial intercondylar spine, likely sequela of remote injury. SOFT TISSUES:No visible soft tissue swelling. EFFUSION:None visible. OTHER: Negative. XR/XR knee RT 3V IMPRESSION: 1. No convincing acute bone abnormality. 2. Mild degenerative changes. Electronically authenticated by: IMTIAZ STRANGE Date: 12/06/2023 08:01
== END 2023-12-05 10:27 | disposition home or self-care (01) ==
LOC: RAD 10:27
PROVIDERS: PCP Nurse Practitioner; Visit Provider Nurse Practitioner
DX: M25.561 Pain in right knee (principal)
CPT/HCPCS: 73562